=== PATIENT | female | born 1955 | race American Indian/Alaskan Native ===

== ENCOUNTER 2017-02-21 07:00 | Outpatient (CLI) | payer OTHER ==
[2017-02-21 10:01] LABS: BUN/Creatinine Ratio 14.61; Calcium 9.4 mg/dL (8.4-10.2); Magnesium 2.1 mg/dL (1.7-2.3); Phosphorous 2.8 mg/dL (2.5-4.5)
[2017-02-21 10:02] LABS: Chloride 102.2 mmol/L (98-107); Potassium 3.7 mmol/L (3.6-5.0)
[2017-02-21 10:15] LABS: Bacteria,Urine 2+ /HPF (Negative); Bilirubin,Urine NEG (Negative); Blood,Urine NEG (Negative); Ketones,Urine NEG (Negative); Leukocyte Esterase,Urine SM (Negative); Mucus,Urine FEW /HPF; Nitrite,Urine NEG (Negative); Protein,Urine >500 mg/dL (Negative)
[2017-02-25 09:41] LABS: Vitamin D, 25-OH, Total 28 ng/mL (30-100)
== END 2017-02-21 07:01 | disposition home or self-care (01) ==
LOC: LAB 07:00
PROVIDERS: ATTEND Internal Medicine Nephrology
DX: N18.3 Chronic kidney disease, stage 3 (moderate) (principal)
CPT/HCPCS: 36415; 80048; 81001; 82043; 82306; 83735; 84100

== ENCOUNTER 2017-04-09 11:46 | Outpatient (CLI) | payer OTHER ==
[2017-04-09 12:21] LABS: BUN/Creatinine Ratio 9.28; Calcium 9.5 mg/dL (8.4-10.2); Chloride 100.7 mmol/L (98-107); Potassium 3.7 mmol/L (3.6-5.0)
== END 2017-04-09 11:47 | disposition home or self-care (01) ==
LOC: LAB 11:46
PROVIDERS: ATTEND Internal Medicine Nephrology
DX: N18.3 Chronic kidney disease, stage 3 (moderate) (principal); I50.9 Heart failure, unspecified
CPT/HCPCS: 36415; 80048

== ENCOUNTER 2017-07-15 08:47 | Outpatient (CLI) | payer OTHER ==
[2017-07-15 09:44] LABS: Anion Gap 17 mmol/L; BUN/Creatinine Ratio 14.54; Blood Urea Nitrogen 16 mg/dL (7-17); Calcium 9.4 mg/dL (8.4-10.2); Carbon Dioxide 28 mmol/L (22-30); Chloride 103.3 mmol/L (98-107); Glucose 49 mg/dL (65-100); Potassium 3.3 mmol/L (3.6-5.0); Sodium 145 mmol/L (137-145)
== END 2017-07-15 08:48 | disposition home or self-care (01) ==
LOC: LAB 08:47
PROVIDERS: ATTEND Internal Medicine Nephrology
DX: I13.0 Hypertensive heart and chronic kidney disease with heart failure and stage 1 through stage 4 chronic kidney disease, or unspecified chronic kidney disease (principal); I50.9 Heart failure, unspecified; N18.3 Chronic kidney disease, stage 3 (moderate); E11.22 Type 2 diabetes mellitus with diabetic chronic kidney disease
CPT/HCPCS: 36415; 80048

== ENCOUNTER 2021-03-23 04:29 | Inpatient (IN) | payer BC, OTHER ==
[2021-03-23] MEDS ORDERED: LORazepam 2 MG/ML VIAL IV ONE (04:44)
--- NOTE | 2021-03-23 05:05 | Consultation ---
History of Present Illness History of present illness: [facility] Consult Note # Demographics Consult Type: Acute Stroke Level 1 (0-4.5 hrs) Patient Location: Emergency Room First Name: Ariella Last Name: Elinor Date of : 1955 Age: 65 Gender: Female Time of Initial Page (): 03/23/2021, 04:34 Time of Return Call ( Time): 03/23/2021, 04:35 # HPI Chief Complaint: altered mental state History: 65F with prior R MCA stroke, atiral fibrillation on coumadin, HTN, DM presents with left facial droop and slurred speech, AMS. Symptoms started at 0100 this AM. Initially hypotensive to 80/60. Saturating 90% on room air. Blood sugar 373. Complaining of significant pain in her back and saying she can't breathe. # Scores Time of exam and NIHSS (): 03/23/2021, 04:36 Level of Consciousness 1a: [0] = Alert; keenly responsive LOC Questions 1b: [0] = Answers both questions correctly LOC Commands 1c: [0] = Performs both tasks correctly Best Gaze 2: [0] = Normal Visual 3: [0] = No visual loss Facial Palsy 4: [1] = Minor paralysis Motor Arm Left 5a: [0] = No drift Motor Arm Right 5b: [0] = No drift Motor Leg Left 6a: [0] = No drift Motor Leg Right 6b: [0] = No drift Limb Ataxia 7: [0] = Absent Sensory 8: [0] = Normal Best Language 9: [0] = No aphasia Dysarthria 10: [1] = [id number] dysarthria Extinction and Inattention 11: [0] = No abnormality NIHSS Total: 2 # Data Time Head CT personally read by me ( Time): 03/23/2021, 05:[address]: no bleed, preliminarily reviewed by me, please refer to radiology read for official reading, chronic R MCA stroke # Assessment Impression: Recrudesence in setting of systemic illness vs acute ischemic stroke # Plan Thrombolytic/Intervention: NOT IV Thrombolytic or IA Intervention Thrombolytic Exclusion (< 3 hour window): non-disabling deficit Intraarterial Exclusion: clinically consistent with small vessel disease Target Blood Pressure: SBP < 220, DBP < 105 Labs: hemoglobin A1c, lipid panel Imaging: (urgency: routine admission): MR Angiogram Head without contrast, MR Angiogram Neck with contrast, MRI Brain without contrast Diagnostic Test: echo without bubble study Therapy/Evaluation: PT/OT evaluation Medication: start statin with goal of LDL < 70, ASA 325 and hold coumadin pending MRI; depending on size/presence of acute stroke will determine when to restart coumadin DVT Prophylaxis: SCD Other: LDL < 70, permissive hypertension, telemetry monitoring, I have discussed my recommendations with the referring provider Additional Recommendations: Target blood glucose 80-180 Disposition: admit # Logistics Telemedicine: Interactive 2 way audio and visual telecommunication technology was utilized during this visit Electronically signed at 03/23/2021 05:05 (Eastern Time) by Jonah Gonzales MD Medications and Allergies Allergies Allergy/AdvReac Type Severity Reaction Status Date / Time metformin Allergy Unknown Verified 03/04/17 16:42 Home Medications Medication Instructions Recorded Confirmed Last Taken Type Digoxin [Lanoxin] 0.125 mg PO DAILY 03/04/17 03/04/17 03/04/17 History Insulin Glargine [Lantus] 30 units SQ QHS 03/04/17 03/04/17 03/03/17 History Warfarin [Coumadin] 5 mg PO QDAY 03/04/17 03/04/17 03/04/17 History carvediloL [Coreg] 12.5 mg PO QDAY 03/04/17 03/04/17 03/04/17 History
--- NOTE | 2021-03-23 05:26 | Cat Scan Report ---
CT HEAD WITHOUT CONTRAST INDICATION: Code Stroke Protocol!!! Stroke-Like symptoms TECHNIQUE: All CT scans at this location are performed using CT dose reduction for ALARA by means of automated exposure control. COMPARISON: None currently available but reports have been reviewed FINDINGS: BRAIN: No hemorrhage or mass effect are seen. The previously reported large right MCA distribution in farction is again seen with areas of porencephaly noted. There is also an old appearing left frontal small focal cortical infarction. No definite new areas of infarction are seen. Mild atrophic changes are noted. White matter microvascular changes are seen. ORBITS: Normal as visualized. SOFT TISSUES OF HEAD: Normal. CALVARIUM: Normal. VISUALIZED PARANASAL SINUSES AND MASTOID AIR CELLS: Clear. ADDITIONAL FINDINGS: None. IMPRESSION: No no definite acute intracranial abnormality. I do not have comparison images available to fully evaluate for possibility of infarction extension but probably finding seen today are old. CODE STROKE: Time of Communication (ELECTRONIC INDUCTION HARDENER/CDT): 0295 Licensed Practitioner Receiving Report: Dr. Contreras Signer Name: Martell Last MD Signed: 03/23/2021 5:22 AM Workstation Name: [id number]
[2021-03-23 05:28] LABS: Basophils # (Auto) 0.1 K/mm3 (0.0-0.1); Basophils % (Auto) 1.7 % (0.0-1.8); Eosinophils # (Auto) 0.1 K/mm3 (0.0-0.4); Hematocrit 36.4 % (30.3-42.9); Hemoglobin 12.3 gm/dl (10.1-14.3); Lymphocytes # (Auto) 0.9 K/mm3 (1.2-5.4); Lymphocytes % (Auto) 18.4 % (13.4-35.0); Mean Corpuscular HGB Conc 34 % (30-34); Mean Corpuscular Volume 89 fl (79-97); Monocytes # (Auto) 0.3 K/mm3 (0.0-0.8); Monocytes % (Auto) 6.4 % (0.0-7.3); Platelet Count 132 K/mm3 (140-440); Red Blood Count 4.11 M/mm3 (3.65-5.03); Red Cell Distribution Width 16.4 % (13.2-15.2)
--- NOTE | 2021-03-23 05:29 | Emergency Department Report ---
ED General Adult HPI - General Chief complaint: Neuro Symptoms/Deficit Stated complaint: POSS STROKE Time Seen by Provider: 03/23/21 05:28 Source: EMS Mode of arrival: Stretcher Limitations: Altered Mental Status - History of Present Illness Initial comments: Patient is a 65-year-old female who presents with left-sided facial droop that is been going on for last few hours history is obtained by patient's . He states that he has had previous strokes in the past. Patient's states that patient has been feeling shaky and weak. She also has been acting more unusual such as yelling and acting in a manner that she usually does not act per the history is limited due to patient yelling saying that she is having back pain. - Related Data Home Medications Medication Instructions Recorded Confirmed Last Taken Digoxin [Lanoxin] 0.125 mg PO DAILY 03/04/17 03/04/17 03/04/17 Insulin Glargine [Lantus] 30 units SQ QHS 03/04/17 03/04/17 03/03/17 Warfarin [Coumadin] 5 mg PO QDAY 03/04/17 03/04/17 03/04/17 carvediloL [Coreg] 12.5 mg PO QDAY 03/04/17 03/04/17 03/04/17 Allergies Allergy/AdvReac Type Severity Reaction Status Date / Time metformin Allergy Swelling Verified 03/23/21 05:49 ED Review of Systems ROS: Stated complaint: POSS STROKE Other details as noted in HPI Constitutional: denies: chills, fever Eyes: denies: eye pain, eye discharge, vision change ENT: denies: ear pain, throat pain Respiratory: denies: cough, shortness of breath, wheezing Cardiovascular: denies: chest pain, palpitations Endocrine: no symptoms reported Gastrointestinal: denies: abdominal pain, nausea, diarrhea Genitourinary: denies: urgency, dysuria, discharge Musculoskeletal: denies: back pain, joint swelling, arthralgia Skin: denies: rash, lesions Neurological: as per HPI, numbness, paresthesias. denies: headache, weakness Psychiatric: denies: anxiety, depression Hematological/Lymphatic: denies: easy bleeding, easy bruising ED Past Medical Hx - Past Medical History Hx Hypertension: Yes Hx CVA: Yes (ischemic in 2003--no residual deficits) Hx Congestive Heart Failure: Yes Hx Diabetes: Yes Hx Asthma: No Hx COPD: No - Social History Smoking Status: Never Smoker - Medications Home Medications: Home Medications Medication Instructions Recorded Confirmed Last Taken Type Digoxin [Lanoxin] 0.125 mg PO DAILY 03/04/17 03/04/17 03/04/17 History Insulin Glargine [Lantus] 30 units SQ QHS 03/04/17 03/04/17 03/03/17 History Warfarin [Coumadin] 5 mg PO QDAY 03/04/17 03/04/17 03/04/17 History carvediloL [Coreg] 12.5 mg PO QDAY 03/04/17 03/04/17 03/04/17 History ED Physical Exam - General Limitations: Altered Mental Status General appearance: alert, in no apparent distress - Head Head exam: Present: atraumatic, normocephalic - Eye Eye exam: Present: normal appearance - ENT ENT exam: Present: mucous membranes moist - Neck Neck exam: Present: normal inspection - Respiratory Respiratory exam: Present: normal lung sounds bilaterally. Absent: respiratory distress - Cardiovascular Cardiovascular Exam: Present: regular rate, normal rhythm. Absent: systolic murmur, diastolic murmur, rubs, gallop - GI/Abdominal GI/Abdominal exam: Present: soft, normal bowel sounds - Extremities Exam Extremities exam: Present: normal inspection - Back Exam Back exam: Present: normal inspection - Neurological Exam Neurological exam: Present: alert, oriented X3 - Psychiatric Psychiatric exam: Present: normal affect, normal mood - Skin Skin exam: Present: warm, dry, intact, normal color. Absent: rash ED Course Vital Signs 03/23/21 03/23/21 03/23/21 05:30 05:31 05:45 Temperature 92.6 F L Pulse Rate 80 80 Respiratory 27 H 20 Rate Blood Pressure 73/47 59/23 O2 Sat by Pulse 99 Oximetry ED Medical Decision Making - Lab Data Result diagrams: 03/23/21 05:06 Lab Results 03/23/21 03/23/21 03/23/21 Range/Units 05:06 05:06 05:06 WBC 4.7 (4.5-11.0) K/mm3 RBC 4.11 (3.65-5.03) M/mm3 Hgb 12.3 (10.1-14.3) gm/dl Hct 36.4 (30.3-42.9) % MCV 89 (79-97) fl MCH 30 (28-32) pg MCHC 34 (30-34) % RDW 16.4 H (13.2-15.2) % Plt Count 132 L (140-440) K/mm3 Lymph % (Auto) 18.4 (13.4-35.0) % Nuckolls % (Auto) 6.4 (0.0-7.3) % Eos % (Auto) 1.1 (0.0-4.3) % Baso % (Auto) 1.7 (0.0-1.8) % Lymph # (Auto) 0.9 L (1.2-5.4) K/mm3 Nuckolls # (Auto) 0.3 (0.0-0.8) K/mm3 Eos # (Auto) 0.1 (0.0-0.4) K/mm3 Baso # (Auto) 0.1 (0.0-0.1) K/mm3 Seg Neutrophils % 72.4 H (40.0-70.0) % Seg Neutrophils # 3.4 (1.8-7.7) K/mm3 PT 38.3 H (12.2-14.9) Sec. INR 3.86 H (0.87-1.13) APTT 40.0 H (24.2-36.6) Sec. Thrombin Time 18.0 (15.1-19.6) Sec. Total Creatine Kinase 105 (30-135) units/L CK-MB (CK-2) 1.7 (0.0-4.0) ng/mL CK-MB (CK-2) Rel Index 1.6 (0-4) Troponin T < 0.010 (0.00-0.029) ng/mL - EKG Data 03/23/21 05:51 EKG shows ventricularly paced rhythm time 5: [address] segment elevation no T wave inversion. - Radiology Data Radiology results: report reviewed, image reviewed CT head: Shows old right MCA infarct no acute hemorrhage - Medical Decision Making Chief medical diagnosis: Ischemic stroke Differential medical diagnosis: Hemorrhagic stroke, TIA I will get neurology consult we will get CT scan of head I will get CBC BMP IV fluids IV Ativan for sedation and I will admit the patient to the hospitalist service Critical Care Time: Yes (60) Critical care attestation.: If time is entered above; I have spent that time in minutes in the direct care of this critically ill patient, excluding procedure time. ED Disposition Clinical Impression: CVA (cerebral vascular accident) Qualifiers: CVA mechanism: unspecified Qualified Code(s): I63.9 - Cerebral infarction, unspecified Disposition: DC09 OP ADMIT IP TO THIS HOSP Is pt being admited?: Yes Does the pt Need Aspirin: No Condition: Stable
[2021-03-23] MEDS ORDERED: SODIUM CHLORIDE 0.9% 1000 ML 1,000 ML IV ONE ×3 (05:30→06:04)
[2021-03-23] MEDS ORDERED: SODIUM CHLORIDE 0.9% 1000 ML 2,000 ML ONE (05:30)
[2021-03-23 05:31] LABS: Eosinophils % (Auto) 1.1 % (0.0-4.3); INR 3.86 (0.87-1.13)
[2021-03-23 05:37] LABS: Creatine Kinase MB 1.7 ng/mL (0.0-4.0)
[2021-03-23] MEDS ORDERED: ACETAMINOPHEN 325 MG TAB PO PRN (05:47)
[2021-03-23] MEDS ORDERED: ONDANSETRON 4 MG/2 ML INJ IV PRN (05:47)
[2021-03-23] MEDS ORDERED: SENNOSIDES 8.6 MG TAB PO PRN (05:47)
[2021-03-23] MEDS ORDERED: ALUM-MAG HYDROXIDE-SIMETHICONE 200-200-20MG/5ML ORAL LIQD 30 ML PO PRN (05:47)
[2021-03-23] MEDS ORDERED: MAGNESIUM HYDROXIDE (MOM) ORAL LIQD UDC PO PRN (05:47)
[2021-03-23] MEDS ORDERED: SODIUM CHLORIDE 0.9% 1000 ML 1,000 ML IV SCH (06:00)
--- NOTE | 2021-03-23 06:04 | History and Physical Report ---
History of Present Illness Date of examination: 03/23/21 Date of admission: 03/23/21 Chief complaint: Alktered mental Status History of present illness: History: 65F with prior R MCA stroke, atiral fibrillation on coumadin, HTN, DM presents with left facial droop and slurred speech, AMS. Symptoms started at 0100 this AM. Initially hypotensive to 80/60. Saturating 90% on room air. Blood sugar 373. Complaining of significant pain in her back and saying she can't br eathe. ED Work Up-WBC 4.7, hemoglobin 12.3, PLT 132, Troponin 0.010, CT of the head-No acute finding process Patient seen at bedside, patients at bedside. patient with left facial droop and slurred speech. patient has hx of CVA, HTN, DM and atiral fibrillation on coumadin. Reviewed lab, mar, and v/s. Past History Past Medical History: atrial fib, heart failure, hypertension, hyperlipidemia, stroke Past Surgical History: No surgical history Social history: lives with family Family history: no significant family history Medications and Allergies Allergies Allergy/AdvReac Type Severity Reaction Status Date / Time metformin Allergy Swelling Verified 03/23/21 05:49 Home Medications Medication Instructions Recorded Confirmed Last Taken Type Digoxin [Lanoxin] 0.125 mg PO DAILY 03/04/17 03/04/17 03/04/17 History Insulin Glargine [Lantus] 30 units SQ QHS 03/04/17 03/04/17 03/03/17 History Warfarin [Coumadin] 5 mg PO QDAY 03/04/17 03/04/17 03/04/17 History carvediloL [Coreg] 12.5 mg PO QDAY 03/04/17 03/04/17 03/04/17 History Active Meds: Active Medications Acetaminophen (Acetaminophen 325 Mg Tab) 650 mg PO Q4H PRN PRN Reason: Pain MILD(1-3)/Fever >100.5/CASTANO Al Hydrox/Mg Hydrox/Simethicone (Alum-Mag Hydroxide-Simethicone [phone]/5ml Oral Liqd 30 Ml) 30 ml PO Q4H PRN PRN Reason: Indigestion Atorvastatin Calcium (Atorvastatin 40 Mg Tab) 80 mg PO QHS [facility]OL[facility] Carvedilol (Carvedilol 12.5 Mg Tab) 12.5 mg PO QDAY [facility]OL[facility] Digoxin (Digoxin 0.125 Mg Tab) 0.125 mg PO DAILY@1700 MANOLO Sodium Chloride (Nacl 0.9% 1000 Ml) 1,000 mls @ 999 mls/hr IV BOLUS ONE Stop: 03/23/21 06:30 Last Admin: 03/23/21 05:30 Dose: 999 mls/hr Documented by: Sodium Chloride (Nacl 0.9% 1000 Ml) 1,000 mls @ 999 mls/hr IV BOLUS ONE Stop: 03/23/21 06:30 Last Admin: 03/23/21 05:30 Dose: 999 mls/hr Documented by: Sodium Chloride (Nacl 0.9% 1000 Ml) 1,000 mls @ 42 mls/hr IV DIRECT MANOLO Insulin Glargine (Insulin Glargine 100 Units/Ml) 30 units SUB-Q QHS [facility] Magnesium Hydroxide (Magnesium Hydroxide (Mom) Oral Liqd Udc) 30 ml PO Q4H PRN PRN Reason: Constipation Ondansetron HCl (Ondansetron 4 Mg/2 Ml Inj) 4 mg IV Q8H PRN PRN Reason: Nausea And Vomiting Senna (Sennosides 8.6 Mg Tab) 8.6 mg PO Q12HR PRN PRN Reason: Constipation Sodium Chloride (Sodium Chloride 0.9% 10 Ml Flush Syringe) 10 ml IV BID MANOLO Sodium Chloride (Sodium Chloride 0.9% 10 Ml Flush Syringe) 10 ml IV PRN PRN PRN Reason: LINE FLUSH Warfarin Sodium (Warfarin 5 Mg Tab) 5 mg PO QDAY [facility]; Protocol Review of Systems Constitutional: fatigue, weakness Ears, nose, mouth and throat: no epistaxis, no bleeding gums Cardiovascular: no chest pain Respiratory: no congestion, no wheezing Gastrointestinal: no melena, no hematochezia Rectal: no itching, no hemorrhoids Musculoskeletal: muscle weakness Integumentary: no rash, no pruritis, no lesions Psychiatric: no disorientation, no hallucinations Hematologic/Lymphatic: no easy bruising, no easy bleeding Allergic/Immunologic: no urticaria Exam - Constitutional Vitals: Temp Pulse Resp BP Pulse Ox 92.6 F L 80 20 59/23 99 03/23/21 05:30 03/23/21 05:45 03/23/21 05:45 03/23/21 05:45 03/23/21 05:31 General appearance: Present: mild distress, well-nourished - EENT Eyes: Present: PERRL ENT: hearing intact, clear oral mucosa - Neck Neck: Present: supple, normal ROM - Respiratory Respiratory effort: normal Respiratory: bilateral: CTA - Cardiovascular Heart rate: 80 Heart Sounds: Present: S1 & S2. Absent: rub, click - Extremities Extremities: pulses symmetrical, No edema Peripheral Pulses: within normal limits - Abdominal General gastrointestinal: Present: soft, non-tender, non-distended, normal bowel sounds Female genitourinary: Present: normal - Integumentary Integumentary: Present: clear, warm, dry - Musculoskeletal Musculoskeletal: strength equal bilaterally, generalized weakness - Psychiatric Psychiatric: appropriate mood/affect, intact judgment & insight, cooperative - Neurologic Neurologic: CNII-XII intact, moves all extremities - Allied Health Allied health notes reviewed: nursing, PT HEART Score - HEART Score Troponin: Troponin T < 0.010 ng/mL (0.00-0.029) 03/23/21 05:06 Results - Labs CBC & Chem 7: 03/23/21 05:06 Labs: Abnormal lab results 03/23/21 03/23/21 Range/Units 05:06 05:06 RDW 16.4 H (13.2-15.2) % Plt Count 132 L (140-440) K/mm3 Lymph # (Auto) 0.9 L (1.2-5.4) K/mm3 Seg Neutrophils % 72.4 H (40.0-70.0) % PT 38.3 H (12.2-14.9) Sec. INR 3.86 H (0.87-1.13) APTT 40.0 H (24.2-36.6) Sec. Assessment and Plan - Patient Problems (1) CVA (cerebral vascular accident) Current Visit: Yes Status: Acute Qualifiers: CVA mechanism: unspecified Qualified Code(s): I63.9 - Cerebral infarction, unspecified Plan to address problem: Head CT: no bleed, preliminarily reviewed by me, chronic R MCA stroke Tele health consult-f/u with recommendation ASA and lipitor PT/OT and speech pathologist (2) Hypertension Current Visit: No Status: Acute Qualifiers: Hypertension type: essential hypertension Qualified Code(s): I10 - Essential (primary) hypertension Plan to address problem: Monitor blood pressure Resume home antihypertensive PRN hydralazine (3) CHF (congestive heart failure) Current Visit: No Status: Acute Plan to address problem: Continue BB, statin and diuretic ECHO-f/u with result (4) Diabetes Current Visit: No Status: Acute Plan to address problem: Monitor blood sugar with SSI Continue antihyperglycemia (5) Full code status Current Visit: Yes Status: Acute Plan to address problem: Patient is full code (6) DVT prophylaxis Current Visit: No Status: Acute Plan to address problem: Heparin subcutaneous
[2021-03-23] MEDS ORDERED: traMADol 50 MG TAB PO PRN (06:31)
[2021-03-23] MEDS: NORepinephrine/NS 4 MG-250 ML 4 MG/250 ML BAG IV SCH ×5 (08:20→20:14)
--- NOTE | 2021-03-23 08:21 | Event Note ---
Date: 03/23/21 Significant event 65 year old F admitted with strokelike symptoms. Hypotensive, hypothermic on presentation. Received 3L bolus with no improvement in BP - MAP still~55. Patient is now hypoxic with sats ~mid 80s Exam - patient is altered, on restraints. Plan Levophed order placed. Will use peripheral line for now. Discussed with Dr Álvarez, he will place central line Transfer to Medical ICU Critical care consult STAT cmp, ddimer, BNP, lactic acid, troponin blood culture, urinalysis ABG stat. chest xray. May need intubation EKG stat Empirical antibiotics Hold BP medications
--- NOTE | 2021-03-23 08:37 | Event Note ---
Date: 03/23/21 [facility] central line note Requested by hospitalist Dr. Rodney to place CVL for pressors Consent unobtainable due to patient's condition/emergent situation Location: Right femoral The skin was prepped and draped in a sterile fashion. The skin and subcutaneous tissue was anesthetized with 1% lidocaine The needle was inserted blood was aspirated after first attempt Using the Seldinger technique a guidewire was inserted. A small incision was made and a dilator was placed. Blood return was good from all 3 ports. All ports were flushed with saline. The central venous line was secured in place with adhesive Sterile OpSite dressing was applied The patient tolerated the procedure well There were no complications
[2021-03-23] MEDS ORDERED: FAMOTIDINE 20 MG/2 ML INJ IV ONE (08:54)
[2021-03-23] MEDS ORDERED: VANCOMYCIN PHARMACY TO DOSE IV SCH (09:00)
[2021-03-23] MEDS ORDERED: VANCOMYCIN/NS 1 GM/250 ML 1 GM/250 ML BAG IV ONE (09:00)
[2021-03-23] MEDS ORDERED: CEFEPIME/NS 2 GM/100 ML 2 GM/100 ML BAG IV SCH (09:00)
--- NOTE | 2021-03-23 09:07 | Event Note ---
Date: 03/23/21 MD intubation note Requested by hospitalist to intubate patient secondary to hypoxia not responding to nonrebreather Intubation note Consent was unobtainable due to patient condition Preoxygenation with 100% oxygen Patient was sedated with etomidate 20 mg IV Patient was paralyzed with succinylcholine 100 mg IV A size 7.0 mm ET tube was inserted orally on first attempt There was symmetric chest rise and bilateral breath sounds post intubation A CO2 indicator was used for confirmation and resulted in positive CO2 return Pulse oximetry post intubation was 89% ET tube was taped at 21 cm at the lips Post intubation chest x-ray confirmed good tube location The patient tolerated the procedure well There were no complications
--- NOTE | 2021-03-23 09:33 | XRay Report ---
XR abdomen 1V ap INDICATION: OG TUBE PLACEMENT. COMPARISON: None available. FINDINGS: The tip of the NG tube projects over the body of the stomach in good position. Signer Name: Saman Roblero MD Signed: 03/23/2021 9:29 AM Workstation Name: [id number]
--- NOTE | 2021-03-23 09:35 | XRay Report ---
CHEST 1 VIEW 03/23/2021 8:28 AM INDICATION / CLINICAL INFORMATION: POST INTUBATION. COMPARISON: None available. FINDINGS: SUPPORT DEVICES: The tip of the ET tube is about 5 cm above the bill. Single lead cardiac pacemaker appears in good position. Prosthetic aortic valve appears in good position. HEART / MEDIASTINUM: There is mild cardiomegaly. LUNGS / PLEURA: There is an apparent left perihilar nodular opacity. No pneumothorax. ADDITIONAL FINDINGS: No significant additional findings. IMPRESSION: 1. Left perihilar nodular parenchymal opacity. This could represent focal pneumonia versus a pulmonar y mass. Further characterization with CT of the chest recommended. Signer Name: Saman Roblero MD Signed: 03/23/2021 9:31 AM Workstation Name: [id number]
[2021-03-23] MEDS: CEFEPIME/NS 2 GM/100 ML 2 GM/100 ML BAG IV SCH ×2 (09:45→21:33)
[2021-03-23] MEDS ORDERED: WARFARIN 5 MG TAB PO SCH (10:00)
[2021-03-23] MEDS ORDERED: carvediloL 12.5 MG TAB PO SCH (10:00)
[2021-03-23] MEDS ORDERED: VASOPRESSIN 20 UNIT in SODIUM CHLORIDE 0.9% 100 ML IV SCH (10:00)
--- NOTE | 2021-03-23 10:08 | Electrocardiograph Report ---
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
[2021-03-23 10:11] LABS: Bacteria,Urine 1+ /HPF (Negative); Bilirubin,Urine NEG (Negative); Blood,Urine NEG (Negative); Color,Urine Amber (Yellow); Hyaline Casts,Urine 8 /LPF; Mucus,Urine FEW /HPF
[2021-03-23 10:13] LABS: Protein,Urine >500 mg/dL (Negative)
[2021-03-23] MEDS ORDERED: LIP THERAPY VASELINE TP PRN (11:46)
[2021-03-23] MEDS ORDERED: MINERAL OIL/PETROLATUM, WHITE OPHTH OINT 3.5 GM OU PRN (11:46)
[2021-03-23] MEDS: fentaNYL DRIP Premix 2,000 MCG/100 ML BAG IV SCH ×2 (12:05→21:42)
--- NOTE | 2021-03-23 12:31 | Consultation ---
History of Present Illness Consult date: 03/23/21 Requesting physician: MIKA ROGERS Reason for consult: other (Acute Hypoxemic Respiratory Failure on MVS) History of present illness: PULMONARY/CCM CONSULT NOTE (Full dictation # [id number]) Please see dictated notes for full details Past History Past Medical History: atrial fib, heart failure, hypertension, hyperlipidemia, stroke Past Surgical History: No surgical history Social history: lives with family Family history: no significant family history Medications and Allergies Allergies Allergy/AdvReac Type Severity Reaction Status Date / Time metformin Allergy Swelling Verified 03/23/21 05:49 Home Medications Medication Instructions Recorded Confirmed Last Taken Type AtorvaSTATin [Lipitor] 40 mg PO QHS 03/23/21 03/23/21 Unknown History Digoxin [Lanoxin] 0.125 mg PO DAILY 03/23/21 03/23/21 Unknown History Doxazosin [Cardura] 2 mg PO QDAY 03/23/21 03/23/21 Unknown History Furosemide [Lasix] 20 mg PO QDAY 03/23/21 03/23/21 Unknown History NIFEdipine [Nifedipine ER] 60 mg PO QDAY 03/23/21 03/23/21 Unknown History RX: Insulin Detemir (Nf) [Levemir 45 units SQ QHS 03/23/21 03/23/21 Unknown History Flextouch (Nf)] RX: Insulin Lispro 15 unit SQ TID 03/23/21 03/23/21 Unknown History RX: Losartan Potassium 50 mg PO QDAY 03/23/21 03/23/21 Unknown History carvediloL [Coreg] 6.25 mg PO BID 03/23/21 03/23/21 Unknown History hydrALAZINE [Apresoline TAB] 100 mg PO TID 03/23/21 03/23/21 Unknown History Active Meds: Active Medications Acetaminophen (Acetaminophen 325 Mg Tab) 650 mg PO Q4H PRN PRN Reason: Pain MILD(1-3)/Fever >100.5/CASTANO Al Hydrox/Mg Hydrox/Simethicone (Alum-Mag Hydroxide-Simethicone 252-627-77qt/5ml Oral Liqd 30 Ml) 30 ml PO Q4H PRN PRN Reason: Indigestion Atorvastatin Calcium (Atorvastatin 40 Mg Tab) 80 mg PO QHS [facility] Digoxin (Digoxin 0.125 Mg Tab) 0.125 mg PO DAILY@1700 [facility] Hydrophilic Ointment (Lip Therapy Vaseline) 1 applic TP Q2HR PRN PRN Reason: Dry Lips Sodium Chloride (Nacl 0.9% 1000 Ml) 1,000 mls @ 42 mls/hr IV DIRECT MANOLO Norepinephrine (Levophed Drip 4 Mg/Ns 250 Ml) 4 mg in 250 mls @ 7.5 mls/hr IV TITR MAN[facility]O; Protocol Last Admin: 03/23/21 10:48 Dose: 30 mcg/min, 112.5 mls/hr Documented by: Cefepime HCl (Cefepime/Ns 2 Gm/100 Ml) 2 gm in 100 mls @ 200 mls/hr IV Q12H [facility] Last Admin: 03/23/21 09:45 Dose: 200 mls/hr Documented by: Vasopressin 20 unit/ Sodium (Chloride) 101 mls @ 9.09 mls/hr IV TITR MAN[facility]O; Protocol Fentanyl Citrate (Fentanyl Drip Premix) 2,000 mcg in 100 mls @ 2.699 mls/hr IV TITR [facility]; Protocol Last Admin: 03/23/21 12:05 Dose: 1 mcg/kg/hr, 2.699 mls/hr Documented by: Insulin Glargine (Insulin Glargine 100 Units/Ml) 30 units SUB-Q QHS [facility] Magnesium Hydroxide (Magnesium Hydroxide (Mom) Oral Liqd Udc) 30 ml PO Q4H PRN PRN Reason: Constipation Multi-Ingred Cream/Lotion/Oil/Oint (Mineral Oil/Petrolatum, White Ophth Oint 3.5 Gm) 1 applic OU Q4HR PRN PRN Reason: Dry Eye(s) Ondansetron HCl (Ondansetron 4 Mg/2 Ml Inj) 4 mg IV Q8H PRN PRN Reason: Nausea And Vomiting Senna (Sennosides 8.6 Mg Tab) 8.6 mg PO Q12HR PRN PRN Reason: Constipation Sodium Chloride (Sodium Chloride 0.9% 10 Ml Flush Syringe) 10 ml IV BID [facility] Last Admin: 03/23/21 10:48 Dose: Not Given Documented by: Sodium Chloride (Sodium Chloride 0.9% 10 Ml Flush Syringe) 10 ml IV PRN PRN PRN Reason: LINE FLUSH Tramadol HCl (Tramadol 50 Mg Tab) 50 mg PO Q4H PRN PRN Reason: Pain, Moderate (4-6) Physical Examination Vital signs: Vital Signs Temp 92.6 F L 03/23/21 05:30 Results - Laboratory Findings CBC and BMP: 03/23/21 05:06 ABG ABG pH 7.220 (7.320-7.450) L 03/23/21 10:07 POC ABG pCO2 33.3 mmHg (32.0-48.0) 03/23/21 10:07 POC ABG pO2 59.3 mmHg (83-108) L 03/23/21 10:07 POC ABG HCO3 13.3 03/23/21 10:07 PT/INR, D-dimer PT 38.3 Sec. (12.2-14.9) H 03/23/21 05:06 INR 3.86 (0.87-1.13) H 03/23/21 05:06 Abnormal lab findings: Abnormal Labs 03/23/21 03/23/21 03/23/21 05:06 05:06 10:07 RDW 16.4 H Plt Count 132 L Lymph # (Auto) 0.9 L Seg Neutrophils % 72.4 H PT 38.3 H INR 3.86 H APTT 40.0 H ABG pH 7.220 L POC ABG pO2 59.3 L ABG Potassium 5.0 H ABG Chloride 108.0 H ABG Glucose 364 H Arterial Blood Glucose 364 H Arterial Blood Ionized Calcium 4.4 L
[2021-03-23] MEDS ORDERED: PANTOPRAZOLE 40 MG INJ IV STA (13:12)
[2021-03-23] MEDS: PANTOPRAZOLE 80 MG in SODIUM CHLORIDE 0.9% 100 ML IV SCH (14:48)
[2021-03-23 15:20] LABS: INR 6.71 (0.87-1.13)
[2021-03-23 15:53] LABS: Albumin 3.4 g/dL (3.9-5); Calcium 8.4 mg/dL (8.4-10.2)
[2021-03-23] MEDS ORDERED: DIGOXIN 0.125 MG TAB PO SCH (17:00)
[2021-03-23] MEDS: INSULIN LISPRO 100 UNIT/ML SUB-Q SCH (18:01)
--- NOTE | 2021-03-23 19:04 | Vascular Lab Report ---
DUPLEX DOPPLER LOWER EXTREMITY VEINS, BILATERAL INDICATION / CLINICAL INFORMATION: DVT. TECHNIQUE: Duplex doppler imaging was performed through the veins of both lower extremities using venous alan sophie and other maneuvers. COMPARISON: None available. FINDINGS: RIGHT COMMON FEMORAL VEIN: Negative. RIGHT FEMORAL VEIN: Negative. RIGHT POPLITEAL VEIN: Negative. RIGHT CALF VEINS: Negative. LEFT COMMON FEMORAL VEIN: Negative. LEFT FEMORAL VEIN: Negative. LEFT POPLITEAL VEIN: Negative. LEFT CALF VEINS: Negative. ADDITIONAL FINDINGS: Subcutaneous edema in both calves IMPRESSION: 1. No sonographic evidence for DVT in either lower extremity. Subcutaneous edema is present in both c singh Signer Name: James Coburn MD FACR Signed: 03/23/2021 7:00 PM Workstation Name: [id number]
[2021-03-23 20:20] LABS: Basophils # (Auto) 0.2 K/mm3 (0.0-0.1); Basophils % (Auto) 1.3 % (0.0-1.8); Eosinophils # (Auto) 0.1 K/mm3 (0.0-0.4); Eosinophils % (Auto) 0.5 % (0.0-4.3); Hematocrit 36.5 % (30.3-42.9); Hemoglobin 12.3 gm/dl (10.1-14.3); Lymphocytes # (Auto) 0.8 K/mm3 (1.2-5.4); Lymphocytes % (Auto) 6.6 % (13.4-35.0); Mean Corpuscular HGB Conc 34 % (30-34); Mean Corpuscular Volume 87 fl (79-97); Monocytes # (Auto) 0.4 K/mm3 (0.0-0.8); Monocytes % (Auto) 3.5 % (0.0-7.3); Platelet Count 136 K/mm3 (140-440); Red Blood Count 4.19 M/mm3 (3.65-5.03); Red Cell Distribution Width 16.1 % (13.2-15.2)
[2021-03-23 20:33] LABS: Albumin 3.1 g/dL (3.9-5)
[2021-03-23] MEDS: INSULIN GLARGINE 100 UNITS/ML SUB-Q SCH (21:36)
--- NOTE | 2021-03-23 23:58 | Consultation ---
DATE OF CONSULTATION: 03/23/2021 PULMONARY CRITICAL CARE CONSULT NOTE CONSULTING PHYSICIAN: Dr. Aram Rodney REASON FOR CONSULTATION: Acute hypoxemic respiratory failure, on mechanical ventilatory support and now acute GI bleed. CHIEF COMPLAINT AND HISTORY OF PRESENT ILLNESS: As follows: The patient is a now 65-year-old female who presented to the hospital yesterday, I believe as a stroke alert with left-sided facial droop, it had just been going on for a few hours according to the history given by the patient's . He also stated that she has had previous strokes in the past. She had been feeling shaky and weak. She had been acting unusually such as yelling and acting in an unusual manner. She was evaluated in the emergency room. I believe a code stroke was called. A CT scan of the brain was negative, showed no acute process. While in the emergency room, she decompensated. She became hypotensive and a central venous line was placed. Then, she became hypoxemic and secondary to the patient not responding to a nonrebreather mask, she was intubated and transferred to the intensive care unit where I stopped by to see her. When I stopped by to see her, she was on the mechanical ventilator. She had been started on a fentanyl drip at about 1 mcg/kg per hour at that time. Once I started my examination, she woke up and proceeded to cough up what looked like fresh coffee-ground hematemesis. I do not have any history of any trauma prior to this presentation. I do not have any history of vomiting or overt aspiration. The above is as much of the history of presentation as I have. PAST MEDICAL HISTORY: Again, significant for a prior right MCA stroke, history of atrial fibrillation, history of hypertension, history of diabetes, and reportedly she was on Coumadin at home, history of hyperlipidemia. PAST SURGICAL HISTORY: Unknown. MEDICATIONS: She was on at the time I stopped by to see her were reviewed. Pertinent medications include the following: Tylenol 650 mg p.o. q.4 hours p.r.n. mild pain or fevers. All p.o. meds via the feeding tube. Lipitor 80 mg p.o. at bedtime, cefepime 2 grams IV q. 12 hours, digoxin 0.125 mg p.o. daily, fentanyl was going at 1 mcg/kg per hour, Lantus insulin 30 units subQ at bedtime, Levophed drip was going at 30 mcg per minute, Zofran 4 mg IV q. 8 hours p.r.n. nausea and vomiting, senna 8.6 mg p.o. q.12h., tramadol 50 mg p.o. q. 4 hours p.r.n. moderate pain, vasopressin 0.03 units per minute. ALLERGIES: METFORMIN. Nature of this allergy is unknown. DIET: Well built lady, acute weight loss, again history is unknown. FAMILY AND SOCIAL HISTORY: Lives in the community. She is ; however, alcohol, tobacco or illicit drug use or abuse history are unknown. The records mentioned that there is no significant family history. She is a never smoker. REVIEW OF SYSTEMS: Unobtainable secondary to patient's medical and mental condition. Since she has been here, no gross hematochezia or melena, no gross hematuria. She had the episode of hematemesis. No hemoptysis or bloody tracheal secretions. REVIEW OF SYSTEMS: Otherwise unobtainable or as in the body of history above. PHYSICAL EXAMINATION: VITAL SIGNS: At presentation, she was hypothermic, temperature 92.6 degrees Fahrenheit, pulse of 80, respiratory rate of 27, blood pressure of 73/47, O2 sats were 99%, inspired oxygen concentration at that time was not recorded. When I stopped by to see her, her O2 sats were 99 that was on the assist control mode of ventilation, AC PRVC, tidal volume I believe was 450, rate had been increased to 30 earlier at my direction and PEEP was 6 initially at 100% FIO2. GENERAL: She is well-built elderly female. Normocephalic, atraumatic on the mechanical ventilator with mildly increased respiratory effort at rest. HEENT: Anicteric, no conjunctival erythema. Oropharynx was moist. She had an endotracheal tube taped at the lips around 24 cm. Grossly, there were no palpable lymph nodes in the supraclavicular or submandibular lymph node chains. LUNGS: Auscultation of both lung hines really clear bilaterally, faint left lower lobe rhonchi, no wheezing. HEART: Sounds 1 and 2 are heard, regular rate and rhythm. It was a paced rhythm on the monitor. Of note, she had an implanted cardiac device in the left upper anterior chest wall. ABDOMEN: Soft, flat, bowel sounds are positive, nontender, no palpable hepatosplenomegaly. EXTREMITIES: Without overt digital clubbing or cyanosis, no pedal edema. Pedal pulses were 2+ bilaterally. I believe she did have right femoral central line in place. NEUROLOGIC: Pupils were equal, round, about 4 mm, reactive to light. Extraocular muscle movements appeared intact. She did have spontaneous movements, it seems to all extremities while I was in the room and appeared to be attempting to follow some commands, but mostly just looked really anxious. SKIN: Normal turgor in the areas examined without overt cellulitis or rash. Please see the wound care nurses' notes for full description of her skin. PSYCHIATRIC: Mood was normal. Affect was anxious. Judgment and insight could not be evaluated. LABORATORY DATA: From my review are as follows: Admission white cell count 4700, hemoglobin 12.3, hematocrit 36.4, platelet count 132. No manual differential. INR was 3.86. Arterial blood gases earlier showed a pH of 7.22, pCO2 of 33, pO2 of 59 that was on assist control 450 tidal volume, rate of 20 and PEEP of 6 and FiO2 was 100%. Urinalysis was unremarkable. Coronavirus PCR is negative. Chest x-ray shows endotracheal tube with the tip in good position, left perihilar infiltrate. The film is rotated to the right and implanted left upper anterior chest wall cardiac device. No gross pneumothorax, no gross bony fracture. Abdominal x-ray shows an NG tube in good position. As mentioned, the CT of the head was negative. ASSESSMENT: 1. Acute hypoxemic respiratory failure, on mechanical ventilatory support. 2. Acute encephalopathy, possibly toxic metabolic. 3. History of a right MCA cerebrovascular accident. 4. Atrial fibrillation. 5. History of hypertension. 6. Diabetes. 7. Oropharyngeal dysphagia. 8. Supratherapeutic INR/coagulopathy. 9. Metabolic acidosis. PLAN: We will leave her on full mechanical ventilatory support. I have started her on a Protonix drip after 80 mg IV bolus. I will repeat the CBC as well as a PT/INR just to see which direction the INR is going in. Consideration will be given for reversal agents, if she does continue to bleed and GI consult has been placed. Oxygen will be weaned to keep sats greater than or equal to 92%. I have dropped the FiO2 to 80 percent and increased the PEEP to 8. She is hypotensive, so we will try and reduce increasing the PEEP much more. She remains on a Levophed drip. We will wean that down for a target mean arterial pressure above 65 mmHg. Cardiology evaluation will be sought for history of significant cardiomyopathy plus or minus a 2D echocardiogram. Enteral nutrition will be the feeding modality of choice for now. An NG tube has been placed and will be connected to low intermittent suction, pending GI evaluation and clearance for feeding. We will continue empiric antibiotic therapy while following cultures to aid de-escalation. Sedation will be targeted for RASS of about -1 to -2. Glycemic control will be targeted for blood glucose 140-180 mg/dL while critically ill. Flu and pneumonia vaccination will be addressed per protocol. A stat comprehensive metabolic panel has been sent and will be addressed. Thank you very much for the consult. We will follow along and make further recommendations as picture progresses/becomes clearer. She is critically ill on life-sustaining interventions including mechanical ventilatory support and vasopressors at very high risk of from cardiopulmonary and now gastrointestinal system decompensation. At this time, I spent about 35-40 minutes of critical care time without overlap and excluding any procedural time that may be necessary. TID: [id number] RECEIPT: [id number] NERI/MYKE
[2021-03-24] MEDS ORDERED: ETOMIDATE 20 MG/10 ML INJ IV ONE (00:24)
[2021-03-24] MEDS ORDERED: SUCCINYLCHOLINE CHLORIDE 200 MG/10 ML INJ MDV ONE (00:24)
[2021-03-24] MEDS: INSULIN LISPRO 100 UNIT/ML SUB-Q SCH ×4 (00:49→23:10)
[2021-03-24] MEDS: DEXTROSE 50% IN WATER (25GM) 50 ML SYRINGE IV PRN ×3 (01:51→23:14)
[2021-03-24] MEDS: NORepinephrine/NS 4 MG-250 ML 4 MG/250 ML BAG IV SCH (01:53)
[2021-03-24] MEDS: PANTOPRAZOLE 80 MG in SODIUM CHLORIDE 0.9% 100 ML IV SCH (01:54)
--- NOTE | 2021-03-24 03:52 | XRay Report ---
CHEST 1 VIEW 0310 INDICATION / CLINICAL INFORMATION: follow up respiratory failure COMPARISON: 03/23/2021 FINDINGS: SUPPORT DEVICES: Endotracheal tube has been removed. Pacer is again seen. HEART / MEDIASTINUM: Prominent cardiomegaly LUNGS / PLEURA: Diffuse congestion and diffuse interstitial edema have increased mildly. The focal in filtrate in the left perihilar area continues but may be slightly improved. No pneumothorax. Small ri ght pleural effusion is noted. ADDITIONAL FINDINGS: No significant additional findings. Signer Name: Martell Last MD Signed: 03/24/2021 3:48 AM Workstation Name: [id number]
[2021-03-24 07:22] LABS: Basophils # (Auto) 0.1 K/mm3 (0.0-0.1); Basophils % (Auto) 0.6 % (0.0-1.8); Eosinophils # (Auto) 0.1 K/mm3 (0.0-0.4); Hematocrit 36.8 % (30.3-42.9); Hemoglobin 12.5 gm/dl (10.1-14.3); Lymphocytes # (Auto) 0.8 K/mm3 (1.2-5.4); Mean Corpuscular HGB Conc 34 % (30-34); Mean Corpuscular Volume 87 fl (79-97); Monocytes % (Auto) 8.5 % (0.0-7.3); Platelet Count 145 K/mm3 (140-440); Red Blood Count 4.21 M/mm3 (3.65-5.03); Red Cell Distribution Width 16.6 % (13.2-15.2)
[2021-03-24 07:37] LABS: INR 4.91 (0.87-1.13)
[2021-03-24 07:38] LABS: Albumin 3.3 g/dL (3.9-5); Calcium 8.3 mg/dL (8.4-10.2); Chol/HDL Ratio 1.71 %
--- NOTE | 2021-03-24 09:48 | Consultation ---
History of Present Illness - Reason for Consult Consult date: 03/24/21 acute renal failure, chronic renal failure - History of Present Illness The patient is a 65 YO female with history significant for DM type 2, HTN, prior R MCA stroke, Atrial fibrillation on coumadin, Rheumatic heart disease with mitral stenosis & Aortic stenosis s/p TAVR (09/2019) and CKD stage 3 who presented to [facility] ED 03/23 with left facial droop, slurred speech and AMS. Patient was not able to provide much history due to AMS and also she was on BIPAP at the time ot eval. Per chart symptoms started at 0100 yesterday. Patient was also c/o back pain sob. Initial BP was low around 70/30, Saturation 90% on room air and Blood sugar 373. ED work up showed WBC 4.7, Hemoglobin 12.3, PLT 132, Troponin 0.010, BUN 23, Creat 2.[address] of the head negative for acute process. Patient was started on Levophed, admitted to ICU with suspected Acute CVA, Septic shock, CLAYTON and Acute hypoxemic respiratory failure. Pt was on BIPAP at the time of eval. Nephrology was consulted for further evaluation and treatment of CLAYTON. Past History Past Medical History: atrial fib, heart failure, hypertension, hyperlipidemia, renal failure, stroke Past Surgical History: No surgical history Social history: lives with family Family history: no significant family history Medications and Allergies Allergies Allergy/AdvReac Type Severity Reaction Status Date / Time metformin Allergy Swelling Verified 03/23/21 05:49 Home Medications Medication Instructions Recorded Confirmed Last Taken Type AtorvaSTATin [Lipitor] 40 mg PO QHS 03/23/21 03/23/21 Unknown History Digoxin [Lanoxin] 0.125 mg PO DAILY 03/23/21 03/23/21 Unknown History Doxazosin [Cardura] 2 mg PO QDAY 03/23/21 03/23/21 Unknown History Furosemide [Lasix] 20 mg PO QDAY 03/23/21 03/23/21 Unknown History Insulin Detemir (Nf) [Levemir 45 units SQ QHS 03/23/21 03/23/21 Unknown History Flextouch (Nf)] Insulin Lispro 15 unit SQ TID 03/23/21 03/23/21 Unknown History Losartan Potassium 50 mg PO QDAY 03/23/21 03/23/21 Unknown History NIFEdipine [Nifedipine ER] 60 mg PO QDAY 03/23/21 03/23/21 Unknown History carvediloL [Coreg] 6.25 mg PO BID 03/23/21 03/23/21 Unknown History hydrALAZINE [Apresoline TAB] 100 mg PO TID 03/23/21 03/23/21 Unknown History Active Meds: Active Medications Acetaminophen (Acetaminophen 325 Mg Tab) 650 mg PO Q4H PRN PRN Reason: Pain MILD(1-3)/Fever >100.5/CASTANO Al Hydrox/Mg Hydrox/Simethicone (Alum-Mag Hydroxide-Simethicone [phone]/5ml Oral Liqd 30 Ml) 30 ml PO Q4H PRN PRN Reason: Indigestion Atorvastatin Calcium (Atorvastatin 40 Mg Tab) 80 mg PO QHS [facility] Last Admin: 03/23/21 21:34 Dose: Not Given Documented by: Dextrose (Dextrose 50% In Water (25gm) 50 Ml Syringe) 50 ml IV Q30MIN PRN; Protocol PRN Reason: Hypoglycemia Digoxin (Digoxin 0.125 Mg Tab) 0.125 mg PO DAILY@1700 [facility] Last Admin: 03/23/21 16:48 Dose: 0.125 mg Documented by: Hydrophilic Ointment (Lip Therapy Vaseline) 1 applic TP Q2HR PRN PRN Reason: Dry Lips Sodium Chloride (Nacl 0.9% 1000 Ml) 1,000 mls @ 42 mls/hr IV DIRECT [facility] Norepinephrine (Levophed Drip 4 Mg/Ns 250 Ml) 4 mg in 250 mls @ 7.5 mls/hr IV TITR [facility]O; Protocol Last Titration: 03/24/21 07:00 Dose: 5 mcg/min, 18.75 mls/hr Documented by: Vasopressin 20 unit/ Sodium (Chloride) 101 mls @ 9.09 mls/hr IV TITR [facility]O; Protocol Pantoprazole Sodium 80 mg/ (Sodium Chloride) 100 mls @ 10 mls/hr IV DIRECT [facility] Last Admin: 03/24/21 01:54 Dose: 8 mg/hr, 10 mls/hr Documented by: Cefepime HCl (Cefepime/Ns 2 Gm/100 Ml) 2 gm in 100 mls @ 200 mls/hr IV Q24H [facility] Insulin Glargine (Insulin Glargine 100 Units/Ml) 30 units SUB-Q QHS [facility] Last Admin: 03/23/21 21:36 Dose: 30 units Documented by: Insulin Human Lispro (Insulin Lispro 100 Unit/Ml) 0 unit SUB-Q Q6HR [facility]; Protocol Last Admin: 03/24/21 06:00 Dose: Not Given Documented by: Magnesium Hydroxide (Magnesium Hydroxide (Mom) Oral Liqd Udc) 30 ml PO Q4H PRN PRN Reason: Constipation Multi-Ingred Cream/Lotion/Oil/Oint (Mineral Oil/Petrolatum, White Ophth Oint 3.5 Gm) 1 applic OU Q4HR PRN PRN Reason: Dry Eye(s) Ondansetron HCl (Ondansetron 4 Mg/2 Ml Inj) 4 mg IV Q8H PRN PRN Reason: Nausea And Vomiting Senna (Sennosides 8.6 Mg Tab) 8.6 mg PO Q12HR PRN PRN Reason: Constipation Sodium Chloride (Sodium Chloride 0.9% 10 Ml Flush Syringe) 10 ml IV BID [facility] Last Admin: 03/24/21 09:14 Dose: 10 ml Documented by: Sodium Chloride (Sodium Chloride 0.9% 10 Ml Flush Syringe) 10 ml IV PRN PRN PRN Reason: LINE FLUSH Tramadol HCl (Tramadol 50 Mg Tab) 50 mg PO Q4H PRN PRN Reason: Pain, Moderate (4-6) Review of Systems ROS unobtainable: due to mental status Exam - Vital Signs Vital signs: Vital Signs Temp 92.6 F L 03/23/21 05:30 Results - Lab Results 03/24/21 06:00 03/24/21 06:00 Most recent lab results ABG pH 7.338 (7.320-7.450) 03/24/21 04:17 ABG O2 Saturation 93.9 (0-100) 03/24/21 04:17 Calcium 8.3 mg/dL (8.4-10.2) L 03/24/21 06:00 Phosphorus 3.70 mg/dL (2.5-4.5) 03/23/21 14:30 Magnesium 1.90 mg/dL (1.7-2.3) 03/23/21 14:30 Assessment and Plan 1. Acute kidney injury: Vasomotor CLAYTON in the setting of septic shock. ATN likely. Urine studies and Renal US ordered. Monitor renal function. Non-oliguric. Creatinine level improving. Avoid nephrotoxic agents. Meds dosage based on GFR. 2. FEN: Anion-gap metabolic acidosis, improving. Monitor lytes and volume status. 3. Acute hypoxemic respiratory failure: CXR showed pulmonary congestion / edema. Covid test negative. On BIPAP, wean as tolerated. Diuretics as tolerated. 4. Suspected CVA: CT head negative. Followed by Neuro. 5. Acute encephalopathy: CT head negative. Followed by Neuro. 6. Septic shock, POA: Off pressors. Abx. Follow cultures. 7. A.fib: Rate controlled. Supra-therapeuric INR. Monitor. 8. Coagulopathy: Monitor INR. 9. DM type 2. Subjective: Patient was seen and examined at the bedside. Examination: General appearance: well-developed, appears stated age, on BIPAP HEENT: JULIETTE, atraumatic Neck: trachea midline Respiratory: rales heard Heart: S1S2, no murmur Abdomen: soft, bowel sounds heard, NT Integumentary: no obvious rash Neurologic: alert, answers questions, follow command, some confusion noted Ext: no edema noted
--- NOTE | 2021-03-24 10:30 | Progress Note ---
Assessment and Plan Assessment and plan: 65F with prior R MCA stroke, atiral fibrillation on coumadin, HTN, DM presents with left facial droop and slurred speech, AMS. Symptoms started at 0100 the morning prior to admission.. Initially hypotensive to 80/60. Saturating 90% on room air. Blood sugar 373. Complaining of significant pain in her back and saying she can't breathe. ED Work Up-WBC 4.7, hemoglobin 12.3, PLT 132, Troponin 0.010, CT of the head-No acute finding process Patient seen at bedside, patients at bedside. patient with left facial droop and slurred speech. patient has hx of CVA, HTN, DM and atiral fibrillation on coumadin. Patient was admitted with diagnosis of septic shock, acute hypoxic respiratory failure and CVA. Acute hypoxemic respiratory failure. Septic shock Acute CVA Coagulopathy Diabetes mellitus type 2 03/24. Continue IV antibiotics. Consult ID for further evaluation. Cont. pressors to maintain MAP > 65. Echocardiogram revealed EF of 55% with mild concentric left ventricular hypertrophy. Neurology consultation. The high probability of a clinically significant, sudden or life threatening deterioration of the [hemodynamic, respiratory and neurologic] system(s) required my full and direct attention, intervention and personal management. The aggregate critical care time was [33] minutes. This time is in addition to time spent performing reported procedures but includes the following: [x] Data Review and interpretation [x] Patient assessment and monitoring of vital signs [x] Documentation [x] Medication orders and management History Interval history: No new issues Hospitalist Physical - Constitutional Vitals: Temp Pulse Resp BP Pulse Ox 96.1 F L 80 16 146/88 95 03/24/21 08:00 03/24/21 10:10 03/24/21 10:10 03/24/21 10:10 03/24/21 10:10 General appearance: Present: mild distress, well-nourished - EENT Eyes: Present: PERRL, EOM intact ENT: hearing intact, clear oral mucosa, dentition normal - Neck Neck: Present: supple, normal ROM - Respiratory Respiratory effort: normal Respiratory: bilateral: CTA - Cardiovascular Rhythm: regular Heart Sounds: Present: S1 & S2. Absent: gallop, rub - Extremities Extremities: no ischemia, No edema, Full ROM - Abdominal General gastrointestinal: soft, non-tender, non-distended, normal bowel sounds - Integumentary Integumentary: Present: clear, warm, dry - Neurologic Neurologic: CNII-XII intact, moves all extremities HEART Score - HEART Score Troponin: Troponin T 0.017 ng/mL (0.00-0.029) 03/23/21 14:48 Results - Labs CBC & Chem 7: 03/24/21 06:00 03/24/21 06:00 Labs: Laboratory Last Values WBC 11.3 K/mm3 (4.5-11.0) H 03/24/21 06:00 RBC 4.21 M/mm3 (3.65-5.03) 03/24/21 06:00 Hgb 12.5 gm/dl (10.1-14.3) 03/24/21 06:00 Hct 36.8 % (30.3-42.9) 03/24/21 06:00 MCV 87 fl (79-97) 03/24/21 06:00 MCH 30 pg (28-32) 03/24/21 06:00 MCHC 34 % (30-34) 03/24/21 06:00 RDW 16.6 % (13.2-15.2) H 03/24/21 06:00 Plt Count 145 K/mm3 (140-440) 03/24/21 06:00 Lymph % (Auto) 7.0 % (13.4-35.0) L 03/24/21 06:00 Christian % (Auto) 8.5 % (0.0-7.3) H 03/24/21 06:00 Eos % (Auto) 1.0 % (0.0-4.3) 03/24/21 06:00 Baso % (Auto) 0.6 % (0.0-1.8) 03/24/21 06:00 Lymph # (Auto) 0.8 K/mm3 (1.2-5.4) L 03/24/21 06:00 Christian # (Auto) 1.0 K/mm3 (0.0-0.8) H 03/24/21 06:00 Eos # (Auto) 0.1 K/mm3 (0.0-0.4) 03/24/21 06:00 Baso # (Auto) 0.1 K/mm3 (0.0-0.1) 03/24/21 06:00 Seg Neutrophils % 82.9 % (40.0-70.0) H 03/24/21 06:00 Seg Neutrophils # 9.4 K/mm3 (1.8-7.7) H 03/24/21 06:00 PT 46.8 Sec. (12.2-14.9) H 03/24/21 06:00 INR 4.91 (0.87-1.13) H 03/24/21 06:00 APTT 40.0 Sec. (24.2-36.6) H 03/23/21 05:06 Thrombin Time 18.0 Sec. (15.1-19.6) 03/23/21 05:06 D-Dimer 1850.11 ng/mlDDU (0-234) H 03/23/21 14:48 ABG pH 7.338 (7.320-7.450) 03/24/21 04:17 POC ABG pCO2 36.6 mmHg (32.0-48.0) 03/24/21 04:17 POC ABG pO2 79.7 mmHg (83-108) L 03/24/21 04:17 POC ABG HCO3 19.2 03/24/21 04:17 ABG O2 Saturation 93.9 (0-100) 03/24/21 04:17 POC ABG Base Excess -5.9 03/24/21 04:17 ABG Hemoglobin 12.7 (12.0-17.5) 03/24/21 04:17 ABG Oxyhemoglobin 93.3 (94-98) L 03/24/21 04:17 ABG Methemoglobin 0.3 (0.0-1.5) 03/24/21 04:17 ABG Sodium 139.7 mmol/L (136.0-145.0) 03/24/21 04:17 ABG Potassium 3.7 mmol/L (3.40-4.50) 03/24/21 04:17 ABG Chloride 111.0 mmol/L (98-107) H 03/24/21 04:17 ABG Glucose 111 mg/dL (65-95) H 03/24/21 04:17 Carboxyhemoglobin 0.3 (0.5-1.5) L 03/24/21 04:17 FiO2 % 70 03/24/21 04:17 Sodium 141 mmol/L (137-145) 03/24/21 06:00 Potassium 3.8 mmol/L (3.6-5.0) 03/24/21 06:00 Chloride 110.2 mmol/L (98-107) H 03/24/21 06:00 Carbon Dioxide 22 mmol/L (22-30) 03/24/21 06:00 Anion Gap 13 mmol/L 03/24/21 06:00 BUN 26 mg/dL (7-17) H 03/24/21 06:00 Creatinine 1.9 mg/dL (0.6-1.2) H 03/24/21 06:00 Estimated GFR 32 ml/min 03/24/21 06:00 BUN/Creatinine Ratio 14 % 03/24/21 06:00 Glucose 92 mg/dL (65-100) 03/24/21 06:00 POC Glucose 110 mg/dL (70-105) H 03/24/21 04:50 Hemoglobin A1c 10.3 % (4-6) H 03/24/21 06:00 Lactic Acid 3.50 mmol/L (0.7-2.0) H* 03/23/21 19:30 Calcium 8.3 mg/dL (8.4-10.2) L 03/24/21 06:00 Phosphorus 3.70 mg/dL (2.5-4.5) 03/23/21 14:30 Magnesium 1.90 mg/dL (1.7-2.3) 03/23/21 14:30 Total Bilirubin 1.40 mg/dL (0.1-1.2) H 03/24/21 06:00 AST 46 units/L (5-40) H 03/24/21 06:00 ALT 39 units/L (7-56) 03/24/21 06:00 Alkaline Phosphatase 157 units/L (35-129) H 03/24/21 06:00 Total Creatine Kinase 105 units/L (30-135) 03/23/21 05:06 CK-MB (CK-2) 1.7 ng/mL (0.0-4.0) 03/23/21 05:06 CK-MB (CK-2) Rel Index 1.6 (0-4) 03/23/21 05:06 Troponin T 0.017 ng/mL (0.00-0.029) 03/23/21 14:48 NT-Pro-B Natriuret Pep 2207 pg/mL (0-900) H 03/23/21 14:48 Total Protein 6.9 g/dL (6.3-8.2) 03/24/21 06:00 Albumin 3.3 g/dL (3.9-5) L 03/24/21 06:00 Albumin/Globulin Ratio 0.9 % 03/24/21 06:00 Triglycerides 46 mg/dL (2-149) 03/24/21 06:00 Cholesterol 77 mg/dL (50-199) 03/24/21 06:00 LDL Cholesterol Direct 32 mg/dL (50-130) L 03/24/21 06:00 HDL Cholesterol 45 mg/dL (40-59) 03/24/21 06:00 Cholesterol/HDL Ratio 1.71 % 03/24/21 06:00 Procalcitonin 0.87 ng/mL (<0.15) 03/23/21 14:30 Arterial Blood Glucose 111 mg/dL (65-95) H 03/24/21 04:17 Arterial Blood Ionized Calcium 4.7 mg/dL (4.6-5.3) 03/24/21 04:17 Urine Color [place] (Yellow) 03/23/21 Unknown Urine Turbidity Slightly-cloudy (Clear) 03/23/21 Unknown Urine pH 5.0 (5.0-7.0) 03/23/21 Unknown Ur Specific [place] 1.019 (1.003-1.030) 03/23/21 Unknown Urine Protein >500 mg/dL (Negative) 03/23/21 Unknown Urine Glucose (UA) 150 mg/dL (Negative) 03/23/21 Unknown Urine Ketones Neg mg/dL (Negative) 03/23/21 Unknown Urine Blood Neg (Negative) 03/23/21 Unknown Urine Nitrite Neg (Negative) 03/23/21 Unknown Urine Bilirubin Neg (Negative) 03/23/21 Unknown Urine Urobilinogen 2.0 mg/dL (<2.0) 03/23/21 Unknown Ur Leukocyte Esterase Neg (Negative) 03/23/21 Unknown Urine WBC (Auto) 2.0 /HPF (0.0-6.0) 03/23/21 Unknown Urine RBC (Auto) 15.0 /HPF (0.0-6.0) 03/23/21 Unknown U Epithel Cells (Auto) 1.0 /HPF (0-13.0) 03/23/21 Unknown Urine Bacteria (Auto) 1+ /HPF (Negative) 03/23/21 Unknown Hyaline Casts 8 /LPF 03/23/21 Unknown Urine Mucus Few /HPF 03/23/21 Unknown Coronavirus (PCR) Negative (Negative) 03/23/21 Unknown Microbiology: Microbiology 03/23/21 14:48 Peripheral/Venous Blood Culture - Preliminary Culture in Progress 03/23/21 14:48 Peripheral/Venous Blood Culture - Preliminary Culture in Progress Gamez/IV: Voiding Method Indwelling Catheter Active Medications - Current Medications Current Medications: Generic Name Dose Route Start Last Admin Trade Name Freq PRN Reason Stop Dose Admin Acetaminophen 650 mg 03/23/21 05:47 Acetaminophen 325 Mg Tab PO Q4H PRN Pain MILD(1-3)/Fever >100.5/CASTANO Al Hydrox/Mg Hydrox/Simethicone 30 ml 03/23/21 05:47 Alum-Mag Hydroxide-Simethicone [id number]/5ml Oral Liqd 30 Ml PO Q4H PRN Indigestion Atorvastatin Calcium 80 mg 03/23/21 22:00 03/23/21 21:34 Atorvastatin 40 Mg Tab PO Not Given QHS MANOLO Dextrose 50 ml 03/23/21 17:33 Dextrose 50% In Water (25gm) 50 Ml Syringe IV Q30MIN PRN Hypoglycemia Protocol Digoxin 0.125 mg 03/23/21 17:00 03/23/21 16:48 Digoxin 0.125 Mg Tab PO 0.125 mg DAILY@1700 MANOLO Administration Hydrophilic Ointment 1 applic 03/23/21 11:46 Lip Therapy Vaseline TP Q2HR PRN Dry Lips Sodium Chloride 1,000 mls @ 42 mls/hr 03/23/21 06:00 Nacl 0.9% 1000 Ml IV DIRECT MANOLO Norepinephrine 4 mg in 250 mls @ 7.5 mls/hr 03/23/21 08:00 03/24/21 07:00 Levophed Drip 4 Mg/Ns 250 Ml IV 5 mcg/min TITR MANOLO 18.75 mls/hr Titration Protocol 2 MCG/MIN Vasopressin 20 unit/ Sodium 101 mls @ 9.09 mls/hr 03/23/21 10:00 Chloride IV TITR MANOLO Protocol 0.03 UNITS/MIN Pantoprazole Sodium 80 mg/ 100 mls @ 10 mls/hr 03/23/21 14:00 03/24/21 01:54 Sodium Chloride IV 8 mg/hr DIRECT MANOLO 10 mls/hr Administration 8 MG/HR Cefepime HCl 2 gm in 100 mls @ 200 mls/hr 03/24/21 22:00 Cefepime/Ns 2 Gm/100 Ml IV Q24H [facility] Insulin Glargine 30 units 03/23/21 22:00 03/23/21 21:36 Insulin Glargine 100 Units/Ml SUB-Q 30 units QHS [facility] Administration Insulin Human Lispro 0 unit 03/23/21 18:00 03/24/21 06:00 Insulin Lispro 100 Unit/Ml SUB-Q Not Given Q6HR [facility] Protocol Magnesium Hydroxide 30 ml 03/23/21 05:47 Magnesium Hydroxide (Mom) Oral Liqd Udc PO Q4H PRN Constipation Multi-Ingred Cream/Lotion/Oil/Oint 1 applic 03/23/21 11:46 Mineral Oil/Petrolatum, White Ophth Oint 3.5 Gm OU Q4HR PRN Dry Eye(s) Ondansetron HCl 4 mg 03/23/21 05:47 Ondansetron 4 Mg/2 Ml Inj IV Q8H PRN Nausea And Vomiting Senna 8.6 mg 03/23/21 05:47 Sennosides 8.6 Mg Tab PO Q12HR PRN Constipation Sodium Chloride 10 ml 03/23/21 10:00 03/24/21 09:14 Sodium Chloride 0.9% 10 Ml Flush Syringe IV 10 ml BID MANOLO Administration Sodium Chloride 10 ml 03/23/21 05:47 Sodium Chloride 0.9% 10 Ml Flush Syringe IV PRN PRN LINE FLUSH Tramadol HCl 50 mg 03/23/21 06:31 Tramadol 50 Mg Tab PO Q4H PRN Pain, Moderate (4-6) Nutrition/Malnutrition Assess - Dietary Evaluation Nutrition/Malnutrition Findings: Nutrition Notes Start: 03/24/21 08:09 Freq: Status: Active Protocol: Document 03/24/21 08:09 CW (Rec: 03/24/21 08:21 CW [id number]) Nutrition Notes Need for Assessment generated from: check processing clerk,MST Initial or Follow up Assessment Current Diagnosis Diabetes,Hypertension,Heart Failure Other Pertinent Diagnosis CVA, L hemiparesis Current Diet NPO Labs/Tests BUN 26 Cr 1.9 HgbA1c 10.3 Pertinent Medications Levophed Humalog Lantus Height 5 ft 4 in Weight 53.977 kg [place] Body Weight (kg) 54.54 BMI 20.4 Weight Status Appropriate Subjective/Other Information RN screen for MST and skin risk. Dm score of 18. Is patient on ventilator? No Is Patient Ambulatory and/or Out of Bed No REE-([place]-St. Jeor-confined to bed) [phone] Calculation [facility] Additional Notes protein needs:65 - 108 g (1.2 - 2 g/kgBW) fluid needs: 1500 -1900 ml or per MD order Nutrition Intervention Change Diet Order: Advance diet when medically feasible to Cardiac Consistent Carbohydrate Diet Goal #1 Diet advancement Goal #2 Understand importance of following a Cardiac Consistent Carbohydrate diet Anticipated Discharge Needs: Cardiac Consistent Carbohydrate Diet Follow-Up By: 03/27/21 Additional Comments F/U for diet advancement
--- NOTE | 2021-03-24 11:30 | Consultation ---
History of Present Illness Consult date: 03/24/21 Reason for Consult: Chnage in mentation History of present illness: Alktered mental Status History of present illness: History: 65F with prior R MCA stroke, atiral fibrillation on coumadin, HTN, DM presents with left facial droop and slurred speech, AMS. Symptoms started at 0100 this AM. Initially hypotensive to 80/60. Saturating 90% on room air. Blood sugar 373. Complaining of significant pain in her back and saying she can't breathe. ED Work Up-WBC 4.7, hemoglobin 12.3, PLT 132, Troponin 0.010, CT of the head-No acute finding process she is with a pace maker Patient seen at bedside, she is complainig of lumber pain she is on Cpapp machine Past History Past Medical History: atrial fib, heart failure, hypertension, hyperlipidemia, stroke Past Surgical History: No surgical history Social history: lives with family Family history: no significant family history Medications and Allergies Allergies Allergy/AdvReac Type Severity Reaction Status Date / Time metformin Allergy Swelling Verified 03/23/21 05:49 Home Medications Medication Instructions Recorded Confirmed Last Taken Type Digoxin [Lanoxin] 0.125 mg PO DAILY 03/04/17 03/04/17 03/04/17 History Insulin Glargine [Lantus] 30 units SQ QHS 03/04/17 03/04/17 03/03/17 History Warfarin [Coumadin] 5 mg PO QDAY 03/04/17 03/04/17 03/04/17 History carvediloL [Coreg] 12.5 mg PO QDAY 03/04/17 03/04/17 03/04/17 History Review of Systems Constitutional: fatigue, weakness Ears, nose, mouth and throat: no epistaxis, no bleeding gums Cardiovascular: no chest pain Respiratory: no congestion, no wheezing Gastrointestinal: no melena, no hematochezia Rectal: no itching, no hemorrhoids Musculoskeletal: muscle weakness Integumentary: no rash, no pruritis, no lesions Psychiatric: no disorientation, no hallucinations Hematologic/Lymphatic: no easy bruising, no easy bleeding Allergic/Immunologic: no urticaria Past History Past Medical History: atrial fib, heart failure, hypertension, hyperlipidemia, stroke Past Surgical History: No surgical history Social history: lives with family Family history: no significant family history Medications and Allergies Allergies Allergy/AdvReac Type Severity Reaction Status Date / Time metformin Allergy Swelling Verified 03/23/21 05:49 Home Medications Medication Instructions Recorded Confirmed Last Taken Type AtorvaSTATin [Lipitor] 40 mg PO QHS 03/23/21 03/23/21 Unknown History Digoxin [Lanoxin] 0.125 mg PO DAILY 03/23/21 03/23/21 Unknown History Doxazosin [Cardura] 2 mg PO QDAY 03/23/21 03/23/21 Unknown History Furosemide [Lasix] 20 mg PO QDAY 03/23/21 03/23/21 Unknown History Insulin Detemir (Nf) [Levemir 45 units SQ QHS 03/23/21 03/23/21 Unknown History Flextouch (Nf)] Insulin Lispro 15 unit SQ TID 03/23/21 03/23/21 Unknown History Losartan Potassium 50 mg PO QDAY 03/23/21 03/23/21 Unknown History NIFEdipine [Nifedipine ER] 60 mg PO QDAY 03/23/21 03/23/21 Unknown History carvediloL [Coreg] 6.25 mg PO BID 03/23/21 03/23/21 Unknown History hydrALAZINE [Apresoline TAB] 100 mg PO TID 03/23/21 03/23/21 Unknown History Active Meds: Active Medications Acetaminophen (Acetaminophen 325 Mg Tab) 650 mg PO Q4H PRN PRN Reason: Pain MILD(1-3)/Fever >100.5/CASTANO Al Hydrox/Mg Hydrox/Simethicone (Alum-Mag Hydroxide-Simethicone [id number]/5ml Oral Liqd 30 Ml) 30 ml PO Q4H PRN PRN Reason: Indigestion Atorvastatin Calcium (Atorvastatin 40 Mg Tab) 80 mg PO QHS [facility] Last Admin: 03/23/21 21:34 Dose: Not Given Documented by: Dextrose (Dextrose 50% In Water (25gm) 50 Ml Syringe) 50 ml IV Q30MIN PRN; Protocol PRN Reason: Hypoglycemia Digoxin (Digoxin 0.125 Mg Tab) 0.125 mg PO Q48H [facility] Hydrophilic Ointment (Lip Therapy Vaseline) 1 applic TP Q2HR PRN PRN Reason: Dry Lips Sodium Chloride (Nacl 0.9% 1000 Ml) 1,000 mls @ 42 mls/hr IV DIRECT MANOLO Norepinephrine (Levophed Drip 4 Mg/Ns 250 Ml) 4 mg in 250 mls @ 7.5 mls/hr IV TITR MANOLO; Protocol Last Titration: 03/24/21 10:21 Dose: 1 mcg/min, 3.75 mls/hr Documented by: Vasopressin 20 unit/ Sodium (Chloride) 101 mls @ 9.09 mls/hr IV TITR MANOLO; Protocol Pantoprazole Sodium 80 mg/ (Sodium Chloride) 100 mls @ 10 mls/hr IV DIRECT MANOLO Last Admin: 03/24/21 01:54 Dose: 8 mg/hr, 10 mls/hr Documented by: Cefepime HCl (Cefepime/Ns 2 Gm/100 Ml) 2 gm in 100 mls @ 200 mls/hr IV Q24H MANOLO Insulin Glargine (Insulin Glargine 100 Units/Ml) 30 units SUB-Q QHS MANOLO Last Admin: 03/23/21 21:36 Dose: 30 units Documented by: Insulin Human Lispro (Insulin Lispro 100 Unit/Ml) 0 unit SUB-Q Q6HR [facility]; Protocol Last Admin: 03/24/21 06:00 Dose: Not Given Documented by: Magnesium Hydroxide (Magnesium Hydroxide (Mom) Oral Liqd Udc) 30 ml PO Q4H PRN PRN Reason: Constipation Multi-Ingred Cream/Lotion/Oil/Oint (Mineral Oil/Petrolatum, White Ophth Oint 3.5 Gm) 1 applic OU Q4HR PRN PRN Reason: Dry Eye(s) Ondansetron HCl (Ondansetron 4 Mg/2 Ml Inj) 4 mg IV Q8H PRN PRN Reason: Nausea And Vomiting Senna (Sennosides 8.6 Mg Tab) 8.6 mg PO Q12HR PRN PRN Reason: Constipation Sodium Chloride (Sodium Chloride 0.9% 10 Ml Flush Syringe) 10 ml IV BID [facility] Last Admin: 03/24/21 09:14 Dose: 10 ml Documented by: Sodium Chloride (Sodium Chloride 0.9% 10 Ml Flush Syringe) 10 ml IV PRN PRN PRN Reason: LINE FLUSH Tramadol HCl (Tramadol 50 Mg Tab) 50 mg PO Q4H PRN PRN Reason: Pain, Moderate (4-6) Physical Examination - Vital Signs Vital Signs: Vital Signs Temp 92.6 F L 03/23/21 05:30 - Constitutional General appearance: uncomfortable, other (alert interactive she is on Cpap difficult to get details hx from her of check mental status ) - EENT EENT: Present: PERRL, mucous membranes moist - Respiratory Respiratory: Present: lungs clear, crackles - Cardiovascular Cardiovascular: Present: other (irregular rate ) Extremities: Present: no peripheral edema bilatateraly, no clubbing, cyanosis - Gastrointestinal Gastrointestinal: Present: normoactive bowel sounds - Integumentary Integumentary: Present: normal - Neurologic Cranial nerve examination: PERRL, EOMI, other (left facial droop) Sensorimotor examination: intact Detailed motor examination: other (she is with 3+/5 left upper and 4/5 lower bilateral and right upper 4/5, planter is down going bilateral, gait unable to do.) Detailed sensory examination: intact Reflex and gait examination: other (unable to do gait) Results - Laboratory Findings CBC and BMP: 03/24/21 06:00 03/24/21 06:00 Abnormal Lab Findings: Abnormal Labs 03/23/21 03/23/21 03/23/21 05:06 05:06 10:07 WBC RDW 16.4 H Plt Count 132 L Lymph % (Auto) [place] % (Auto) Lymph # (Auto) 0.9 L [place] # (Auto) Baso # (Auto) Seg Neutrophils % 72.4 H Seg Neutrophils # PT 38.3 H INR 3.86 H APTT 40.0 H D-Dimer ABG pH 7.220 L POC ABG pO2 59.3 L ABG Oxyhemoglobin ABG Potassium 5.0 H ABG Chloride 108.0 H ABG Glucose 364 H Carboxyhemoglobin Sodium Chloride Carbon Dioxide BUN Creatinine Glucose POC Glucose Hemoglobin A1c Lactic Acid Calcium Total Bilirubin AST Alkaline Phosphatase NT-Pro-B Natriuret Pep Albumin LDL Cholesterol Direct Arterial Blood Glucose 364 H Arterial Blood Ionized Calcium 4.4 L 03/23/21 03/23/21 03/23/21 11:34 14:30 14:48 WBC RDW Plt Count Lymph % (Auto) [place] % (Auto) Lymph # (Auto) [place] # (Auto) Baso # (Auto) Seg Neutrophils % Seg Neutrophils # PT 60.1 H INR 6.71 H* APTT D-Dimer 1850.11 H ABG pH POC ABG pO2 ABG Oxyhemoglobin ABG Potassium ABG Chloride ABG Glucose Carboxyhemoglobin Sodium 136 L Chloride Carbon Dioxide 17 L BUN 26 H Creatinine 2.3 H Glucose 383 H POC Glucose 340 H Hemoglobin A1c Lactic Acid Calcium Total Bilirubin 2.20 H AST 76 H Alkaline Phosphatase 166 H NT-Pro-B Natriuret Pep Albumin 3.4 L LDL Cholesterol Direct Arterial Blood Glucose Arterial Blood Ionized Calcium 03/23/21 03/23/21 03/23/21 14:48 14:48 17:24 WBC RDW Plt Count Lymph % (Auto) [place] % (Auto) Lymph # (Auto) [place] # (Auto) Baso # (Auto) Seg Neutrophils % Seg Neutrophils # PT INR APTT D-Dimer ABG pH POC ABG pO2 ABG Oxyhemoglobin ABG Potassium ABG Chloride ABG Glucose Carboxyhemoglobin Sodium Chloride Carbon Dioxide BUN Creatinine Glucose POC Glucose 338 H Hemoglobin A1c Lactic Acid 4.20 H* Calcium Total Bilirubin AST Alkaline Phosphatase NT-Pro-B Natriuret Pep 2207 H Albumin LDL Cholesterol Direct Arterial Blood Glucose Arterial Blood Ionized Calcium 03/23/21 03/23/21 03/23/21 19:30 19:30 19:30 WBC 12.3 H RDW 16.1 H Plt Count 136 L Lymph % (Auto) 6.6 L [place] % (Auto) Lymph # (Auto) 0.8 L [place] # (Auto) Baso # (Auto) 0.2 H Seg Neutrophils % 88.1 H Seg Neutrophils # 10.9 H PT INR APTT D-Dimer ABG pH POC ABG pO2 ABG Oxyhemoglobin ABG Potassium ABG Chloride ABG Glucose Carboxyhemoglobin Sodium Chloride Carbon Dioxide 19 L BUN 26 H Creatinine 2.2 H Glucose 341 H POC Glucose Hemoglobin A1c Lactic Acid 3.50 H* Calcium 8.0 L Total Bilirubin 1.90 H AST 65 H Alkaline Phosphatase 158 H NT-Pro-B Natriuret Pep Albumin 3.1 L LDL Cholesterol Direct Arterial Blood Glucose Arterial Blood Ionized Calcium 03/23/21 03/24/21 03/24/21 23:21 04:17 04:50 WBC RDW Plt Count Lymph % (Auto) [place] % (Auto) Lymph # (Auto) [place] # (Auto) Baso # (Auto) Seg Neutrophils % Seg Neutrophils # PT INR APTT D-Dimer ABG pH POC ABG pO2 79.7 L ABG Oxyhemoglobin 93.3 L ABG Potassium ABG Chloride 111.0 H ABG Glucose 111 H Carboxyhemoglobin 0.3 L Sodium Chloride Carbon Dioxide BUN Creatinine Glucose POC Glucose 283 H 110 H Hemoglobin A1c Lactic Acid Calcium Total Bilirubin AST Alkaline Phosphatase NT-Pro-B Natriuret Pep Albumin LDL Cholesterol Direct Arterial Blood Glucose 111 H Arterial Blood Ionized Calcium 03/24/21 03/24/21 03/24/21 06:00 06:00 06:00 WBC 11.3 H RDW 16.6 H Plt Count Lymph % (Auto) 7.0 L [place] % (Auto) 8.5 H Lymph # (Auto) 0.8 L [place] # (Auto) 1.0 H Baso # (Auto) Seg Neutrophils % 82.9 H Seg Neutrophils # 9.4 H PT INR APTT D-Dimer ABG pH POC ABG pO2 ABG Oxyhemoglobin ABG Potassium ABG Chloride ABG Glucose Carboxyhemoglobin Sodium Chloride 110.2 H Carbon Dioxide BUN 26 H Creatinine 1.9 H Glucose POC Glucose Hemoglobin A1c 10.3 H Lactic Acid Calcium 8.3 L Total Bilirubin 1.40 H AST 46 H Alkaline Phosphatase 157 H NT-Pro-B Natriuret Pep Albumin 3.3 L LDL Cholesterol Direct 32 L Arterial Blood Glucose Arterial Blood Ionized Calcium 03/24/21 06:00 WBC RDW Plt Count Lymph % (Auto) [place] % (Auto) Lymph # (Auto) [place] # (Auto) Baso # (Auto) Seg Neutrophils % Seg Neutrophils # PT 46.8 H INR 4.91 H APTT D-Dimer ABG pH POC ABG pO2 ABG Oxyhemoglobin ABG Potassium ABG Chloride ABG Glucose Carboxyhemoglobin Sodium Chloride Carbon Dioxide BUN Creatinine Glucose POC Glucose Hemoglobin A1c Lactic Acid Calcium Total Bilirubin AST Alkaline Phosphatase NT-Pro-B Natriuret Pep Albumin LDL Cholesterol Direct Arterial Blood Glucose Arterial Blood Ionized Calcium Assessment and Plan Assessment and Plan - Patient Problems #pt. preesnted with confusion/hypotension -she is with a hx of CVA and residual left side weakness -CT brain is remarkable for remote right MCA and left reontal CVA no hemorrhage -she is with a pace maker -Hx of AF on coumadine -NIH on initial evaluation is #2 she is not a candidate for TPA -INR#10.3 -can not have MRI due to pace maker -Can not have CTA due to Creat#1.9 -US carotid consider repeat CT brain as needed -Hold coumadin for today -Pt/ST- -Lipid profil pending -Lipitor 40 mg -ASA 81 mg daily # Back pain with no weakness she is with diffuse tenderness lumbar region --schadual CT lumbar spine -pt therapy -neurontine 100 mg bid # Hypertension Monitor blood pressure Resume home antihypertensive PRN hydralazine # Hyperlipidemia -LDL# pending -Lipitor 40 mg # Renal insufficiency - # CHF (congestive heart failure) Continue BB, statin and diuretic ECHO showed sever MS with dilated LA , EF # 55%,Right ventricular dilatation and TR,PH # Diabetes Monitor blood sugar with SSI Continue antihyperglycemia A1C#10.3 need better control of suger # Full code status Current Visit: Yes Status: Acute Plan to address problem: Patient is full code # DVT prophylaxis Heparin subcutaneous PLAN 1-CT lumber 2- Pt therapy 3- Hold coumadin today 4- Lipid profil 5- Lipitor 40 mg daily and ASA 81 mg 6- US carotid 7- neurontine 100 mg bid 8- Consider Repeat Ct brain as needed if change in mentation 9- monitor BP ,breathing and kidney function will follow
--- NOTE | 2021-03-24 11:31 | Consultation ---
History of Present Illness Consult date: 03/24/21 Consult reason: hypotension, known to you History of present illness: Patient is a 65-year old F with multiple medical problems. She has a cardiac history of paroxysmal atrial fibrillation and rheumatic heart disease with mitral stenosis and aortic stenosis. September of 2019, she underwent aortic valve replacement (TAVR) at [facility]. She is on warfarin for oral anticoagulation. Patient also has a pacemaker implant. Co-morbidities includes HTN, DM, prior CVA and renal failure. Patient was brought in with hypotension, suspected CVA and acute hypoxic respiratory failure. She is currently on Bipap therapy and pressors for support. A CT scan on the head reports no acute abnormalities. Chest x-ray reports left perihilar nodular opacity. No evidence of interstitial edema. COVID serology test was negative. Venous doppler showed no evidence of lower extremity DVT. 12- lead ECG is ventricular paced rhythm. Initial labs shows lactic acidosis, elevated glucose greater than 300 and a creatinine of 2.3. There was also mild elevation of AST. She had a INR of 3.8. Further evaluation with an echocardiogram reports an LVEF 55%. There is severe biatrial enlargement with dilated right ventricle. There is severe mitral stenosis with a mean gradient of 9.8. There is severe tricuspid regurgitation with severe pulmonary hypertension, RVSP 66 mmHG. Findings are not significantly changed from an echo done in 2019 following her TAVR procedure. Past History Past Medical History: atrial fib, diabetes, heart failure, hypertension, hyperlipidemia, stroke Past Surgical History: Other (TAVR in 2019 at [place], Pacemaker implant) Social history: lives with family Family history: no significant family history Medications and Allergies Allergies Allergy/AdvReac Type Severity Reaction Status Date / Time metformin Allergy Swelling Verified 03/23/21 05:49 Home Medications Medication Instructions Recorded Confirmed Last Taken Type AtorvaSTATin [Lipitor] 40 mg PO QHS 03/23/21 03/23/21 Unknown History Digoxin [Lanoxin] 0.125 mg PO DAILY 03/23/21 03/23/21 Unknown History Doxazosin [Cardura] 2 mg PO QDAY 03/23/21 03/23/21 Unknown History Furosemide [Lasix] 20 mg PO QDAY 03/23/21 03/23/21 Unknown History Insulin Detemir (Nf) [Levemir 45 units SQ QHS 03/23/21 03/23/21 Unknown History Flextouch (Nf)] Insulin Lispro 15 unit SQ TID 03/23/21 03/23/21 Unknown History Losartan Potassium 50 mg PO QDAY 03/23/21 03/23/21 Unknown History NIFEdipine [Nifedipine ER] 60 mg PO QDAY 03/23/21 03/23/21 Unknown History carvediloL [Coreg] 6.25 mg PO BID 03/23/21 03/23/21 Unknown History hydrALAZINE [Apresoline TAB] 100 mg PO TID 03/23/21 03/23/21 Unknown History Active Meds: Active Medications Acetaminophen (Acetaminophen 325 Mg Tab) 650 mg PO Q4H PRN PRN Reason: Pain MILD(1-3)/Fever >100.5/CASTANO Al Hydrox/Mg Hydrox/Simethicone (Alum-Mag Hydroxide-Simethicone [id number]/5ml Oral Liqd 30 Ml) 30 ml PO Q4H PRN PRN Reason: Indigestion Atorvastatin Calcium (Atorvastatin 40 Mg Tab) 80 mg PO QHS MANOLO Last Admin: 03/23/21 21:34 Dose: Not Given Documented by: Dextrose (Dextrose 50% In Water (25gm) 50 Ml Syringe) 50 ml IV Q30MIN PRN; Protocol PRN Reason: Hypoglycemia Digoxin (Digoxin 0.125 Mg Tab) 0.125 mg PO Q48H MANOLO Hydrophilic Ointment (Lip Therapy Vaseline) 1 applic TP Q2HR PRN PRN Reason: Dry Lips Sodium Chloride (Nacl 0.9% 1000 Ml) 1,000 mls @ 42 mls/hr IV DIRECT MANOLO Norepinephrine (Levophed Drip 4 Mg/Ns 250 Ml) 4 mg in 250 mls @ 7.5 mls/hr IV TITR MANOLO; Protocol Last Titration: 03/24/21 10:21 Dose: 1 mcg/min, 3.75 mls/hr Documented by: Vasopressin 20 unit/ Sodium (Chloride) 101 mls @ 9.09 mls/hr IV TITR MANOLO; Protocol Pantoprazole Sodium 80 mg/ (Sodium Chloride) 100 mls @ 10 mls/hr IV DIRECT MANOLO Last Admin: 03/24/21 01:54 Dose: 8 mg/hr, 10 mls/hr Documented by: Cefepime HCl (Cefepime/Ns 2 Gm/100 Ml) 2 gm in 100 mls @ 200 mls/hr IV Q24H [facility] Insulin Glargine (Insulin Glargine 100 Units/Ml) 30 units SUB-Q QHS [facility] Last Admin: 03/23/21 21:36 Dose: 30 units Documented by: Insulin Human Lispro (Insulin Lispro 100 Unit/Ml) 0 unit SUB-Q Q6HR [facility]; Protocol Last Admin: 03/24/21 06:00 Dose: Not Given Documented by: Magnesium Hydroxide (Magnesium Hydroxide (Mom) Oral Liqd Udc) 30 ml PO Q4H PRN PRN Reason: Constipation Multi-Ingred Cream/Lotion/Oil/Oint (Mineral Oil/Petrolatum, White Ophth Oint 3.5 Gm) 1 applic OU Q4HR PRN PRN Reason: Dry Eye(s) Ondansetron HCl (Ondansetron 4 Mg/2 Ml Inj) 4 mg IV Q8H PRN PRN Reason: Nausea And Vomiting Senna (Sennosides 8.6 Mg Tab) 8.6 mg PO Q12HR PRN PRN Reason: Constipation Sodium Chloride (Sodium Chloride 0.9% 10 Ml Flush Syringe) 10 ml IV BID [facility] Last Admin: 03/24/21 09:14 Dose: 10 ml Documented by: Sodium Chloride (Sodium Chloride 0.9% 10 Ml Flush Syringe) 10 ml IV PRN PRN PRN Reason: LINE FLUSH Tramadol HCl (Tramadol 50 Mg Tab) 50 mg PO Q4H PRN PRN Reason: Pain, Moderate (4-6) Physical Examination Vital Signs Temp 92.6 F L 03/23/21 05:30 General appearance: other (in Bipap) Cardiac: Positive: Other (ventricular paced rhythm.) Results 03/24/21 06:00 03/24/21 06:00 Cardiac Enzymes 03/23/21 03/23/21 03/24/21 Range/Units 14:30 19:30 06:00 AST 76 H 65 H 46 H (5-40) units/L Coagulation 03/23/21 03/24/21 Range/Units 14:48 06:00 PT 60.1 H 46.8 H (12.2-14.9) Sec. INR 6.71 H* 4.91 H (0.87-1.13) Lipids 03/24/21 Range/Units 06:00 Triglycerides 46 (2-149) mg/dL Cholesterol 77 (50-199) mg/dL HDL Cholesterol 45 (40-59) mg/dL Cholesterol/HDL Ratio 1.71 % CBC 03/23/21 03/24/21 Range/Units 19:30 06:00 WBC 12.3 H 11.3 H (4.5-11.0) K/mm3 RBC 4.19 4.21 (3.65-5.03) M/mm3 Hgb 12.3 12.5 (10.1-14.3) gm/dl Hct 36.5 36.8 (30.3-42.9) % Plt Count 136 L 145 (140-440) K/mm3 Lymph # (Auto) 0.8 L 0.8 L (1.2-5.4) K/mm3 [place] # (Auto) 0.4 1.0 H (0.0-0.8) K/mm3 Eos # (Auto) 0.1 0.1 (0.0-0.4) K/mm3 Baso # (Auto) 0.2 H 0.1 (0.0-0.1) K/mm3 Comprehensive Metabolic Panel 03/23/21 03/23/21 03/24/21 Range/Units 14:30 19:30 06:00 Sodium 136 L 138 141 (137-145) mmol/L Potassium 4.4 4.0 3.8 (3.6-5.0) mmol/L Chloride 103.6 105.3 110.2 H (98-107) mmol/L Carbon Dioxide 17 L 19 L 22 (22-30) mmol/L BUN 26 H 26 H 26 H (7-17) mg/dL Creatinine 2.3 H 2.2 H 1.9 H (0.6-1.2) mg/dL Glucose 383 H 341 H 92 (65-100) mg/dL Calcium 8.4 8.0 L 8.3 L (8.4-10.2) mg/dL AST 76 H 65 H 46 H (5-40) units/L ALT 44 40 39 (7-56) units/L Alkaline Phosphatase 166 H 158 H 157 H (35-129) units/L Total Protein 6.7 6.8 6.9 (6.3-8.2) g/dL Albumin 3.4 L 3.1 L 3.3 L (3.9-5) g/dL Assessment and Plan - Patient Problems (1) Rheumatic heart disease Current Visit: No Status: Acute
--- NOTE | 2021-03-24 12:29 | Progress Note ---
Assessment and Plan Acute hypoxemic respiratory failure. Septic shock Acute CVA Coagulopathy Diabetes mellitus type 2 s/p PPM -Continue with BIPAP, get ABG and CXR -Discussed with GI -Hold off any VTE prophylaxis, elevated INR -Titrate supplemental oxygen to keep SpO2 89-92% -Therapy/Evaluation: PT/OT evaluation -DVT Prophylaxis: SCD - LDL < 70, telemetry monitoring -Glycemic control Target blood glucose 80-180- had episode of hypoglycemia, start on [id number] -Blood pressure control, add Hydrallazine -Agitation management -Place OGT fro tube feeding and nutritional support -Supportive transfusions as clinically indicated to keep HgB >7g/dL -CTscan without contrast of the back to better evaluate back pain. -Cardioprotective measures -Updated her at the bedside -Discussed with GI CONDITION: CRITICAL PROGNOSIS: GUARDED CODE STATUS: FULL CODE The high probability of a clinically significant, sudden or life threatening deterioration of the [hemodynamic, respiratory and neurologic] system(s) required my full and direct attention, intervention and personal management. The aggregate critical care time was [33] minutes. This time is in addition to time spent performing reported procedures but includes the following: [x] Data Review and interpretation [x] Patient assessment and monitoring of vital signs [x] Documentation [x] Medication orders and management Subjective Date of service: 03/24/21 Interval history: 65F with prior R MCA stroke, atiral fibrillation on coumadin, HTN, DM presents with left facial droop and slurred speech, AMS. Symptoms started at 0100 the morning prior to admission.. Initially hypotensive to 80/60. Saturating 90% on room air. Blood sugar 373. Complaining of significant pain in her back and saying she can't breathe. ED Work Up-WBC 4.7, hemoglobin 12.3, PLT 132, Troponin 0.010, CT of the head-No acute finding process Patient seen at bedside, patients at bedside. patient with left facial droop and slurred speech. patient has hx of CVA, HTN, DM and atiral fibrillation on coumadin. Patient was admitted with diagnosis of septic shock, acute hypoxic respiratory failure and CVA. 03/24 -Seen and examined. Vitals, labs, medications, chart reviewed. On BIPAP and her is at the bedside. She complains of back pain. Episode of coffee ground emesis, discussed with GI at the bedside, he states there is no need fro any interventions at this time. Objective - Exam Narrative Exam: Physical Exam: Constitutional: calm, no distress, on BIPAP via FFM Head, Ears, Nose: Normocephalic, atraumatic. External ears, nose normal Eyes: Conjunctivae/corneas clear. No icterus. No ptosis. Neck: Supple, no meningeal signs Oral: Limited Cardiovascular: S1, S2 normal. Left chest wall device- Telemtry- paced Respiratory: Good air entry, clear to auscultation bilaterally GI: Soft, non-tender; bowel sounds normal. No peritoneal signs Musculoskeletal: No pedal edema, no cyanosis. Skin: No rash or abscess Hem/Lymphatic: No palpable cervical or supraclavicular nodes. No lymphangitis Psych: Intermittent agitation Neurological: calm, non focal exam Vital Signs - 12hr 03/24/21 03/24/21 03/24/21 00:30 00:40 00:45 Temperature Pulse Rate 80 80 82 Respiratory 23 30 H Rate Blood Pressure 132/82 132/82 131/79 O2 Sat by Pulse 99 99 98 Oximetry 03/24/21 03/24/21 03/24/21 00:50 01:00 01:10 Temperature Pulse Rate 80 80 80 Respiratory 27 H 30 H 27 H Rate Blood Pressure 131/79 136/80 136/80 O2 Sat by Pulse 99 100 100 Oximetry 03/24/21 03/24/21 03/24/21 01:20 01:30 01:40 Temperature Pulse Rate 80 80 80 Respiratory 22 18 23 Rate Blood Pressure 128/82 128/86 128/86 O2 Sat by Pulse 100 100 100 Oximetry 03/24/21 03/24/21 03/24/21 01:50 02:00 02:10 Temperature Pulse Rate 80 80 80 Respiratory 30 H 21 23 Rate Blood Pressure 127/83 129/80 129/80 O2 Sat by Pulse 100 100 100 Oximetry 03/24/21 03/24/21 03/24/21 02:20 02:30 02:40 Temperature Pulse Rate 80 80 80 Respiratory 13 26 H 20 Rate Blood Pressure 133/84 130/81 130/81 O2 Sat by Pulse 100 100 100 Oximetry 03/24/21 03/24/21 03/24/21 02:50 03:00 03:10 Temperature Pulse Rate 85 81 81 Respiratory 26 H 23 17 Rate Blood Pressure 132/86 114/72 114/72 O2 Sat by Pulse 95 90 Oximetry 03/24/21 03/24/21 03/24/21 03:11 03:20 03:30 Temperature 97.8 F Pulse Rate 80 80 Respiratory 20 20 Rate Blood Pressure 112/65 120/75 O2 Sat by Pulse 97 100 Oximetry 03/24/21 03/24/21 03/24/21 03:40 03:50 04:00 Temperature Pulse Rate 80 80 80 Respiratory 21 21 19 Rate Blood Pressure 120/75 122/73 125/69 O2 Sat by Pulse 99 97 97 Oximetry 03/24/21 03/24/21 03/24/21 04:10 04:20 04:30 Temperature Pulse Rate 80 80 80 Respiratory 17 19 18 Rate Blood Pressure 125/69 122/71 133/73 O2 Sat by Pulse 97 97 96 Oximetry 03/24/21 03/24/21 03/24/21 04:40 04:50 05:00 Temperature Pulse Rate 80 80 80 Respiratory 18 18 19 Rate Blood Pressure 133/73 127/79 129/81 O2 Sat by Pulse 97 97 96 Oximetry 03/24/21 03/24/21 03/24/21 05:10 05:20 05:30 Temperature Pulse Rate 80 80 80 Respiratory 20 19 17 Rate Blood Pressure 129/81 128/85 124/80 O2 Sat by Pulse 96 98 95 Oximetry 03/24/21 03/24/21 03/24/21 05:40 05:50 06:00 Temperature Pulse Rate 80 80 80 Respiratory 13 16 17 Rate Blood Pressure 124/80 129/83 127/84 O2 Sat by Pulse 96 97 Oximetry 03/24/21 03/24/21 03/24/21 06:10 06:20 06:30 Temperature Pulse Rate 80 80 80 Respiratory 17 17 17 Rate Blood Pressure 127/84 134/83 130/87 O2 Sat by Pulse 98 97 98 Oximetry 03/24/21 03/24/21 03/24/21 06:40 06:50 07:00 Temperature Pulse Rate 80 80 80 Respiratory 17 17 17 Rate Blood Pressure 130/87 133/85 139/86 O2 Sat by Pulse 98 98 94 Oximetry 03/24/21 03/24/21 03/24/21 07:10 07:20 07:29 Temperature Pulse Rate 80 80 80 Respiratory 14 16 20 Rate Blood Pressure 139/86 126/84 116/88 O2 Sat by Pulse 96 97 96 Oximetry 03/24/21 03/24/21 03/24/21 07:30 07:40 07:50 Temperature Pulse Rate 80 80 80 Respiratory 16 15 15 Rate Blood Pressure 116/88 116/88 112/68 O2 Sat by Pulse 96 96 96 Oximetry 03/24/21 03/24/21 03/24/21 08:00 08:10 08:20 Temperature 96.1 F L Pulse Rate 80 80 80 Respiratory 15 15 16 Rate Blood Pressure 128/83 128/83 137/86 O2 Sat by Pulse 95 95 94 Oximetry 03/24/21 03/24/21 03/24/21 08:30 08:40 08:50 Temperature Pulse Rate 80 80 80 Respiratory 16 15 17 Rate Blood Pressure 135/85 135/85 131/88 O2 Sat by Pulse 95 95 93 Oximetry 03/24/21 03/24/21 03/24/21 09:00 09:10 09:20 Temperature Pulse Rate 80 80 80 Respiratory 17 15 17 Rate Blood Pressure 128/86 128/86 136/87 O2 Sat by Pulse 94 94 96 Oximetry 03/24/21 03/24/21 03/24/21 09:30 09:40 09:50 Temperature Pulse Rate 80 80 80 Respiratory 17 15 16 Rate Blood Pressure 136/87 136/87 143/89 O2 Sat by Pulse 95 96 95 Oximetry 03/24/21 03/24/21 03/24/21 10:00 10:10 10:20 Temperature Pulse Rate 80 80 80 Respiratory 16 16 15 Rate Blood Pressure 146/88 146/88 140/84 O2 Sat by Pulse 96 95 97 Oximetry 03/24/21 03/24/21 03/24/21 10:30 10:40 10:50 Temperature Pulse Rate 80 80 80 Respiratory 15 15 14 Rate Blood Pressure 141/86 141/86 139/112 O2 Sat by Pulse 96 96 94 Oximetry 03/24/21 03/24/21 03/24/21 11:00 11:07 11:10 Temperature Pulse Rate 80 80 80 Respiratory 12 21 13 Rate Blood Pressure 127/86 127/86 127/86 O2 Sat by Pulse 97 97 95 Oximetry Gastrointestinal: normoactive bowel sounds Integumentary: normal CBC and BMP: 03/24/21 06:00 03/25/21 03:50 ABG, PT/INR, D-dimer: ABG ABG pH 7.338 (7.320-7.450) 03/24/21 04:17 POC ABG pCO2 36.6 mmHg (32.0-48.0) 03/24/21 04:17 POC ABG pO2 79.7 mmHg (83-108) L 03/24/21 04:17 POC ABG HCO3 19.2 03/24/21 04:17 ABG O2 Saturation 93.9 (0-100) 03/24/21 04:17 PT/INR, D-dimer PT 46.8 Sec. (12.2-14.9) H 03/24/21 06:00 INR 4.91 (0.87-1.13) H 03/24/21 06:00 D-Dimer 1850.11 ng/mlDDU (0-234) H 03/23/21 14:48 Abnormal lab findings: Abnormal Labs 03/23/21 03/23/21 03/23/21 05:06 05:06 10:07 WBC RDW 16.4 H Plt Count 132 L Lymph % (Auto) [place] % (Auto) Lymph # (Auto) 0.9 L [place] # (Auto) Baso # (Auto) Seg Neutrophils % 72.4 H Seg Neutrophils # PT 38.3 H INR 3.86 H APTT 40.0 H D-Dimer ABG pH 7.220 L POC ABG pO2 59.3 L ABG Oxyhemoglobin ABG Potassium 5.0 H ABG Chloride 108.0 H ABG Glucose 364 H Carboxyhemoglobin Sodium Chloride Carbon Dioxide BUN Creatinine Glucose POC Glucose Hemoglobin A1c Lactic Acid Calcium Total Bilirubin AST Alkaline Phosphatase NT-Pro-B Natriuret Pep Albumin LDL Cholesterol Direct Arterial Blood Glucose 364 H Arterial Blood Ionized Calcium 4.4 L 03/23/21 03/23/21 03/23/21 11:34 14:30 14:48 WBC RDW Plt Count Lymph % (Auto) [place] % (Auto) Lymph # (Auto) [place] # (Auto) Baso # (Auto) Seg Neutrophils % Seg Neutrophils # PT 60.1 H INR 6.71 H* APTT D-Dimer 1850.11 H ABG pH POC ABG pO2 ABG Oxyhemoglobin ABG Potassium ABG Chloride ABG Glucose Carboxyhemoglobin Sodium 136 L Chloride Carbon Dioxide 17 L BUN 26 H Creatinine 2.3 H Glucose 383 H POC Glucose 340 H Hemoglobin A1c Lactic Acid Calcium Total Bilirubin 2.20 H AST 76 H Alkaline Phosphatase 166 H NT-Pro-B Natriuret Pep Albumin 3.4 L LDL Cholesterol Direct Arterial Blood Glucose Arterial Blood Ionized Calcium 03/23/21 03/23/21 03/23/21 14:48 14:48 17:24 WBC RDW Plt Count Lymph % (Auto) [place] % (Auto) Lymph # (Auto) [place] # (Auto) Baso # (Auto) Seg Neutrophils % Seg Neutrophils # PT INR APTT D-Dimer ABG pH POC ABG pO2 ABG Oxyhemoglobin ABG Potassium ABG Chloride ABG Glucose Carboxyhemoglobin Sodium Chloride Carbon Dioxide BUN Creatinine Glucose POC Glucose 338 H Hemoglobin A1c Lactic Acid 4.20 H* Calcium Total Bilirubin AST Alkaline Phosphatase NT-Pro-B Natriuret Pep 2207 H Albumin LDL Cholesterol Direct Arterial Blood Glucose Arterial Blood Ionized Calcium 03/23/21 03/23/21 03/23/21 19:30 19:30 19:30 WBC 12.3 H RDW 16.1 H Plt Count 136 L Lymph % (Auto) 6.6 L [place] % (Auto) Lymph # (Auto) 0.8 L [place] # (Auto) Baso # (Auto) 0.2 H Seg Neutrophils % 88.1 H Seg Neutrophils # 10.9 H PT INR APTT D-Dimer ABG pH POC ABG pO2 ABG Oxyhemoglobin ABG Potassium ABG Chloride ABG Glucose Carboxyhemoglobin Sodium Chloride Carbon Dioxide 19 L BUN 26 H Creatinine 2.2 H Glucose 341 H POC Glucose Hemoglobin A1c Lactic Acid 3.50 H* Calcium 8.0 L Total Bilirubin 1.90 H AST 65 H Alkaline Phosphatase 158 H NT-Pro-B Natriuret Pep Albumin 3.1 L LDL Cholesterol Direct Arterial Blood Glucose Arterial Blood Ionized Calcium 03/23/21 03/24/21 03/24/21 23:21 04:17 04:50 WBC RDW Plt Count Lymph % (Auto) [place] % (Auto) Lymph # (Auto) [place] # (Auto) Baso # (Auto) Seg Neutrophils % Seg Neutrophils # PT INR APTT D-Dimer ABG pH POC ABG pO2 79.7 L ABG Oxyhemoglobin 93.3 L ABG Potassium ABG Chloride 111.0 H ABG Glucose 111 H Carboxyhemoglobin 0.3 L Sodium Chloride Carbon Dioxide BUN Creatinine Glucose POC Glucose 283 H 110 H Hemoglobin A1c Lactic Acid Calcium Total Bilirubin AST Alkaline Phosphatase NT-Pro-B Natriuret Pep Albumin LDL Cholesterol Direct Arterial Blood Glucose 111 H Arterial Blood Ionized Calcium 03/24/21 03/24/21 03/24/21 06:00 06:00 06:00 WBC 11.3 H RDW 16.6 H Plt Count Lymph % (Auto) 7.0 L [place] % (Auto) 8.5 H Lymph # (Auto) 0.8 L [place] # (Auto) 1.0 H Baso # (Auto) Seg Neutrophils % 82.9 H Seg Neutrophils # 9.4 H PT INR APTT D-Dimer ABG pH POC ABG pO2 ABG Oxyhemoglobin ABG Potassium ABG Chloride ABG Glucose Carboxyhemoglobin Sodium Chloride 110.2 H Carbon Dioxide BUN 26 H Creatinine 1.9 H Glucose POC Glucose Hemoglobin A1c 10.3 H Lactic Acid Calcium 8.3 L Total Bilirubin 1.40 H AST 46 H Alkaline Phosphatase 157 H NT-Pro-B Natriuret Pep Albumin 3.3 L LDL Cholesterol Direct 32 L Arterial Blood Glucose Arterial Blood Ionized Calcium 03/24/21 03/24/21 06:00 11:55 WBC RDW Plt Count Lymph % (Auto) [place] % (Auto) Lymph # (Auto) [place] # (Auto) Baso # (Auto) Seg Neutrophils % Seg Neutrophils # PT 46.8 H INR 4.91 H APTT D-Dimer ABG pH POC ABG pO2 ABG Oxyhemoglobin ABG Potassium ABG Chloride ABG Glucose Carboxyhemoglobin Sodium Chloride Carbon Dioxide BUN Creatinine Glucose POC Glucose 59 L Hemoglobin A1c Lactic Acid Calcium Total Bilirubin AST Alkaline Phosphatase NT-Pro-B Natriuret Pep Albumin LDL Cholesterol Direct Arterial Blood Glucose Arterial Blood Ionized Calcium Chest x-ray: image reviewed Allied health notes reviewed: RT
--- NOTE | 2021-03-24 12:56 | Event Note ---
Date: 03/24/21 Pt seen and had reported coughing or vomiting of blood yesterday. She had an NG tube in place then that was reported to show no blood. No further problems, and Hgb stable. No indication of GI bleed. Likely upper airway process. Discussed with Dr. Borges. Consult cancelled. Please call if needed.
--- NOTE | 2021-03-24 13:33 | Electrocardiograph Report ---
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
[2021-03-24] MEDS ORDERED: VANCOMYCIN/NS 1 GM/250 ML 1 GM/250 ML BAG IV SCH (14:00)
--- NOTE | 2021-03-24 15:13 | Cat Scan Report ---
CT LUMBAR SPINE: 03/24/2021 INDICATION / CLINICAL INFORMATION: lumber pain. COMPARISON: None available. FINDINGS: CT images of the lumbar spine were obtained. Images are evaluated in the axial, coronal, and sagittal planes. There is no evidence of acute abnormality. Vertebral body height and alignment is well preserved at all levels. LEVEL BY LEVEL ANALYSIS: L5-S1: Mild diffuse disc bulging and facet degenerative changes. L4-5: Mild diffuse disc bulging and minimal facet degenerative changes. L3-4: Unremarkable. L2-3: Unremarkable. L1-2: Unremarkable. PARASPINAL STRUCTURES: Unremarkable. IMPRESSION: Mild degenerative change at L4-5 and L5-S1. No evidence of stenosis or nerve root compression. No ac joni abnormality. All CT scans at this location are performed using dose reduction to ALARA by means of automated expos ure control. Signer Name: Christian Barnes MD Signed: 03/24/2021 3:09 PM Workstation Name: [id number]
--- NOTE | 2021-03-24 15:20 | Consultation ---
History of Present Illness - Reason for Consult Consult date: 03/24/21 ?sepsis Requesting physician: CM WARD - History of Present Illness The patient is a 65-year-old female with prior CVA, atrial fibrillation on anticoagulation, hypertension, diabetes, indwelling cardiac pacemaker was admitted to the hospital on 03/23/2021 with altered mental status and left facial droop. Upon initial evaluation, she was hypotensive requiring IV fluids. She a lso got hypoxic requiring BiPAP. She was evaluated by cardiology, neurology. Also briefly needed Levophed and mechanical ventilation. ID was consulted to evaluate for sepsis. She is currently agitated, off the ventilator, screaming. She has remained afebrile. Labs with minimal leukocytosis. Review of Systems: Limited due to agitation Past History Past Medical History: atrial fib, heart failure, hypertension, hyperlipidemia, renal failure, stroke Past Surgical History: No surgical history Social history: lives with family Family history: no significant family history Medications and Allergies Allergies Allergy/AdvReac Type Severity Reaction Status Date / Time metformin Allergy Swelling Verified 03/23/21 05:49 Home Medications Medication Instructions Recorded Confirmed Last Taken Type AtorvaSTATin [Lipitor] 40 mg PO QHS 03/23/21 03/23/21 Unknown History Digoxin [Lanoxin] 0.125 mg PO DAILY 03/23/21 03/23/21 Unknown History Doxazosin [Cardura] 2 mg PO QDAY 03/23/21 03/23/21 Unknown History Furosemide [Lasix] 20 mg PO QDAY 03/23/21 03/23/21 Unknown History Insulin Detemir (Nf) [Levemir 45 units SQ QHS 03/23/21 03/23/21 Unknown History Flextouch (Nf)] Insulin Lispro 15 unit SQ TID 03/23/21 03/23/21 Unknown History Losartan Potassium 50 mg PO QDAY 03/23/21 03/23/21 Unknown History NIFEdipine [Nifedipine ER] 60 mg PO QDAY 03/23/21 03/23/21 Unknown History carvediloL [Coreg] 6.25 mg PO BID 03/23/21 03/23/21 Unknown History hydrALAZINE [Apresoline TAB] 100 mg PO TID 03/23/21 03/23/21 Unknown History Active Meds: Active Medications Acetaminophen (Acetaminophen 325 Mg Tab) 650 mg PO Q4H PRN PRN Reason: Pain MILD(1-3)/Fever >100.5/CASTANO Al Hydrox/Mg Hydrox/Simethicone (Alum-Mag Hydroxide-Simethicone [id number]/5ml Oral Liqd 30 Ml) 30 ml PO Q4H PRN PRN Reason: Indigestion Atorvastatin Calcium (Atorvastatin 40 Mg Tab) 80 mg PO QHS MANOLO Last Admin: 03/23/21 21:34 Dose: Not Given Documented by: Dextrose (Dextrose 50% In Water (25gm) 50 Ml Syringe) 50 ml IV Q30MIN PRN; Protocol PRN Reason: Hypoglycemia Last Admin: 03/24/21 01:51 Dose: 50 ml Documented by: Digoxin (Digoxin 0.125 Mg Tab) 0.125 mg PO Q48H MANOLO Hydrophilic Ointment (Lip Therapy Vaseline) 1 applic TP Q2HR PRN PRN Reason: Dry Lips Sodium Chloride (Nacl 0.9% 1000 Ml) 1,000 mls @ 42 mls/hr IV DIRECT MANOLO Norepinephrine (Levophed Drip 4 Mg/Ns 250 Ml) 4 mg in 250 mls @ 7.5 mls/hr IV TITR MANOLO; Protocol Last Titration: 03/24/21 10:21 Dose: 1 mcg/min, 3.75 mls/hr Documented by: Vasopressin 20 unit/ Sodium (Chloride) 101 mls @ 9.09 mls/hr IV TITR MANOLO; Protocol Vancomycin HCl (Vancomycin/Ns 1 Gm/250 Ml) 1 gm in 250 mls @ 167.007 mls/hr IV Q24H MANOLO Last Admin: 03/24/21 15:12 Dose: 167.007 mls/hr Documented by: Ceftriaxone Sodium (Rocephin/Ns 1 Gm/50 Ml) 1 gm in 50 mls @ 100 mls/hr IV Q24HR MANOLO; Protocol Insulin Glargine (Insulin Glargine 100 Units/Ml) 30 units SUB-Q QHS MANOLO Last Admin: 03/23/21 21:36 Dose: 30 units Documented by: Insulin Human Lispro (Insulin Lispro 100 Unit/Ml) 0 unit SUB-Q Q6HR MANOLO; Protocol Last Admin: 03/24/21 14:59 Dose: Not Given Documented by: Magnesium Hydroxide (Magnesium Hydroxide (Mom) Oral Liqd Udc) 30 ml PO Q4H PRN PRN Reason: Constipation Multi-Ingred Cream/Lotion/Oil/Oint (Mineral Oil/Petrolatum, White Ophth Oint 3.5 Gm) 1 applic OU Q4HR PRN PRN Reason: Dry Eye(s) Ondansetron HCl (Ondansetron 4 Mg/2 Ml Inj) 4 mg IV Q8H PRN PRN Reason: Nausea And Vomiting Pantoprazole Sodium (Pantoprazole 40 Mg Tab) 40 mg PO QDAC MANOLO Senna (Sennosides 8.6 Mg Tab) 8.6 mg PO Q12HR PRN PRN Reason: Constipation Sodium Chloride (Sodium Chloride 0.9% 10 Ml Flush Syringe) 10 ml IV BID MANOLO Last Admin: 03/24/21 09:14 Dose: 10 ml Documented by: Sodium Chloride (Sodium Chloride 0.9% 10 Ml Flush Syringe) 10 ml IV PRN PRN PRN Reason: LINE FLUSH Tramadol HCl (Tramadol 50 Mg Tab) 50 mg PO Q4H PRN PRN Reason: Pain, Moderate (4-6) Physical Examination - Physical Exam Narrative exam: Physical Exam: Constitutional: Awake, agitated and screaming Head, Ears, Nose: Normocephalic, atraumatic. External ears, nose normal Eyes: Conjunctivae/corneas clear. No icterus. No ptosis. Neck: Supple, no meningeal signs Oral: Limited Cardiovascular: S1, S2 normal. Respiratory: Good air entry, clear to auscultation bilaterally GI: Soft, non-tender; bowel sounds normal. No peritoneal signs Musculoskeletal: No pedal edema, no cyanosis. Skin: No rash or abscess Hem/Lymphatic: No palpable cervical or supraclavicular nodes. No lymphangitis Psych: Agitated Neurological: Awake, agitated, screaming - Constitutional Vitals: Vital Signs Temp Pulse Resp BP Pulse Ox 96.1 F L 80 13 127/86 95 03/24/21 08:00 03/24/21 11:10 03/24/21 11:10 03/24/21 11:10 03/24/21 11:10 Temperature -Last 24 Hours Temperature 96.1 F Temperature 97.8 F Temperature 98.8 F Temperature 98.4 F Temperature 97.8 F Results - Labs CBC & Chem 7: 03/24/21 06:00 03/24/21 06:00 Labs: Abnormal lab results 03/23/21 03/23/21 03/23/21 Range/Units 14:30 14:48 14:48 WBC (4.5-11.0) K/mm3 RDW (13.2-15.2) % Plt Count (140-440) K/mm3 Lymph % (Auto) (13.4-35.0) % Johnson % (Auto) (0.0-7.3) % Lymph # (Auto) (1.2-5.4) K/mm3 Johnson # (Auto) (0.0-0.8) K/mm3 Baso # (Auto) (0.0-0.1) K/mm3 Seg Neutrophils % (40.0-70.0) % Seg Neutrophils # (1.8-7.7) K/mm3 PT (12.2-14.9) Sec. INR 6.71 H* (0.87-1.13) D-Dimer 1850.11 H (0-234) ng/mlDDU POC ABG pO2 (83-108) mmHg ABG Oxyhemoglobin (94-98) ABG Chloride (98-107) mmol/L ABG Glucose (65-95) mg/dL Carboxyhemoglobin (0.5-1.5) Sodium 136 L (137-145) mmol/L Chloride (98-107) mmol/L Carbon Dioxide 17 L (22-30) mmol/L BUN 26 H (7-17) mg/dL Creatinine 2.3 H (0.6-1.2) mg/dL Glucose 383 H (65-100) mg/dL POC Glucose (70-105) mg/dL Hemoglobin A1c (4-6) % Lactic Acid 4.20 H* (0.7-2.0) mmol/L Calcium (8.4-10.2) mg/dL Total Bilirubin 2.20 H (0.1-1.2) mg/dL AST 76 H (5-40) units/L Alkaline Phosphatase 166 H (35-129) units/L NT-Pro-B Natriuret Pep (0-900) pg/mL Albumin 3.4 L (3.9-5) g/dL LDL Cholesterol Direct (50-130) mg/dL Arterial Blood Glucose (65-95) mg/dL 03/23/21 03/23/21 03/23/21 Range/Units 14:48 17:24 19:30 WBC 12.3 H (4.5-11.0) K/mm3 RDW 16.1 H (13.2-15.2) % Plt Count 136 L (140-440) K/mm3 Lymph % (Auto) 6.6 L (13.4-35.0) % Johnson % (Auto) (0.0-7.3) % Lymph # (Auto) 0.8 L (1.2-5.4) K/mm3 Johnson # (Auto) (0.0-0.8) K/mm3 Baso # (Auto) 0.2 H (0.0-0.1) K/mm3 Seg Neutrophils % 88.1 H (40.0-70.0) % Seg Neutrophils # 10.9 H (1.8-7.7) K/mm3 PT (12.2-14.9) Sec. INR (0.87-1.13) D-Dimer (0-234) ng/mlDDU POC ABG pO2 (83-108) mmHg ABG Oxyhemoglobin (94-98) ABG Chloride (98-107) mmol/L ABG Glucose (65-95) mg/dL Carboxyhemoglobin (0.5-1.5) Sodium (137-145) mmol/L Chloride (98-107) mmol/L Carbon Dioxide (22-30) mmol/L BUN (7-17) mg/dL Creatinine (0.6-1.2) mg/dL Glucose (65-100) mg/dL POC Glucose 338 H (70-105) mg/dL Hemoglobin A1c (4-6) % Lactic Acid (0.7-2.0) mmol/L Calcium (8.4-10.2) mg/dL Total Bilirubin (0.1-1.2) mg/dL AST (5-40) units/L Alkaline Phosphatase (35-129) units/L NT-Pro-B Natriuret Pep 2207 H (0-900) pg/mL Albumin (3.9-5) g/dL LDL Cholesterol Direct (50-130) mg/dL Arterial Blood Glucose (65-95) mg/dL 03/23/21 03/23/21 03/23/21 Range/Units 19:30 19:30 23:21 WBC (4.5-11.0) K/mm3 RDW (13.2-15.2) % Plt Count (140-440) K/mm3 Lymph % (Auto) (13.4-35.0) % Johnson % (Auto) (0.0-7.3) % Lymph # (Auto) (1.2-5.4) K/mm3 Johnson # (Auto) (0.0-0.8) K/mm3 Baso # (Auto) (0.0-0.1) K/mm3 Seg Neutrophils % (40.0-70.0) % Seg Neutrophils # (1.8-7.7) K/mm3 PT (12.2-14.9) Sec. INR (0.87-1.13) D-Dimer (0-234) ng/mlDDU POC ABG pO2 (83-108) mmHg ABG Oxyhemoglobin (94-98) ABG Chloride (98-107) mmol/L ABG Glucose (65-95) mg/dL Carboxyhemoglobin (0.5-1.5) Sodium (137-145) mmol/L Chloride (98-107) mmol/L Carbon Dioxide 19 L (22-30) mmol/L BUN 26 H (7-17) mg/dL Creatinine 2.2 H (0.6-1.2) mg/dL Glucose 341 H (65-100) mg/dL POC Glucose 283 H (70-105) mg/dL Hemoglobin A1c (4-6) % Lactic Acid 3.50 H* (0.7-2.0) mmol/L Calcium 8.0 L (8.4-10.2) mg/dL Total Bilirubin 1.90 H (0.1-1.2) mg/dL AST 65 H (5-40) units/L Alkaline Phosphatase 158 H (35-129) units/L NT-Pro-B Natriuret Pep (0-900) pg/mL Albumin 3.1 L (3.9-5) g/dL LDL Cholesterol Direct (50-130) mg/dL Arterial Blood Glucose (65-95) mg/dL 03/24/21 03/24/21 03/24/21 Range/Units 04:17 04:50 06:00 WBC 11.3 H (4.5-11.0) K/mm3 RDW 16.6 H (13.2-15.2) % Plt Count (140-440) K/mm3 Lymph % (Auto) 7.0 L (13.4-35.0) % Johnson % (Auto) 8.5 H (0.0-7.3) % Lymph # (Auto) 0.8 L (1.2-5.4) K/mm3 Johnson # (Auto) 1.0 H (0.0-0.8) K/mm3 Baso # (Auto) (0.0-0.1) K/mm3 Seg Neutrophils % 82.9 H (40.0-70.0) % Seg Neutrophils # 9.4 H (1.8-7.7) K/mm3 PT (12.2-14.9) Sec. INR (0.87-1.13) D-Dimer (0-234) ng/mlDDU POC ABG pO2 79.7 L (83-108) mmHg ABG Oxyhemoglobin 93.3 L (94-98) ABG Chloride 111.0 H (98-107) mmol/L ABG Glucose 111 H (65-95) mg/dL Carboxyhemoglobin 0.3 L (0.5-1.5) Sodium (137-145) mmol/L Chloride (98-107) mmol/L Carbon Dioxide (22-30) mmol/L BUN (7-17) mg/dL Creatinine (0.6-1.2) mg/dL Glucose (65-100) mg/dL POC Glucose 110 H (70-105) mg/dL Hemoglobin A1c (4-6) % Lactic Acid (0.7-2.0) mmol/L Calcium (8.4-10.2) mg/dL Total Bilirubin (0.1-1.2) mg/dL AST (5-40) units/L Alkaline Phosphatase (35-129) units/L NT-Pro-B Natriuret Pep (0-900) pg/mL Albumin (3.9-5) g/dL LDL Cholesterol Direct (50-130) mg/dL Arterial Blood Glucose 111 H (65-95) mg/dL 03/24/21 03/24/21 03/24/21 Range/Units 06:00 06:00 06:00 WBC (4.5-11.0) K/mm3 RDW (13.2-15.2) % Plt Count (140-440) K/mm3 Lymph % (Auto) (13.4-35.0) % Johnson % (Auto) (0.0-7.3) % Lymph # (Auto) (1.2-5.4) K/mm3 Johnson # (Auto) (0.0-0.8) K/mm3 Baso # (Auto) (0.0-0.1) K/mm3 Seg Neutrophils % (40.0-70.0) % Seg Neutrophils # (1.8-7.7) K/mm3 PT 46.8 H (12.2-14.9) Sec. INR 4.91 H (0.87-1.13) D-Dimer (0-234) ng/mlDDU POC ABG pO2 (83-108) mmHg ABG Oxyhemoglobin (94-98) ABG Chloride (98-107) mmol/L ABG Glucose (65-95) mg/dL Carboxyhemoglobin (0.5-1.5) Sodium (137-145) mmol/L Chloride 110.2 H (98-107) mmol/L Carbon Dioxide (22-30) mmol/L BUN 26 H (7-17) mg/dL Creatinine 1.9 H (0.6-1.2) mg/dL Glucose (65-100) mg/dL POC Glucose (70-105) mg/dL Hemoglobin A1c 10.3 H (4-6) % Lactic Acid (0.7-2.0) mmol/L Calcium 8.3 L (8.4-10.2) mg/dL Total Bilirubin 1.40 H (0.1-1.2) mg/dL AST 46 H (5-40) units/L Alkaline Phosphatase 157 H (35-129) units/L NT-Pro-B Natriuret Pep (0-900) pg/mL Albumin 3.3 L (3.9-5) g/dL LDL Cholesterol Direct 32 L (50-130) mg/dL Arterial Blood Glucose (65-95) mg/dL 03/24/21 03/24/21 03/24/21 Range/Units 11:55 12:19 12:44 WBC (4.5-11.0) K/mm3 RDW (13.2-15.2) % Plt Count (140-440) K/mm3 Lymph % (Auto) (13.4-35.0) % Johnson % (Auto) (0.0-7.3) % Lymph # (Auto) (1.2-5.4) K/mm3 Johnson # (Auto) (0.0-0.8) K/mm3 Baso # (Auto) (0.0-0.1) K/mm3 Seg Neutrophils % (40.0-70.0) % Seg Neutrophils # (1.8-7.7) K/mm3 PT (12.2-14.9) Sec. INR (0.87-1.13) D-Dimer (0-234) ng/mlDDU POC ABG pO2 (83-108) mmHg ABG Oxyhemoglobin (94-98) ABG Chloride (98-107) mmol/L ABG Glucose (65-95) mg/dL Carboxyhemoglobin (0.5-1.5) Sodium (137-145) mmol/L Chloride (98-107) mmol/L Carbon Dioxide (22-30) mmol/L BUN (7-17) mg/dL Creatinine (0.6-1.2) mg/dL Glucose (65-100) mg/dL POC Glucose 59 L 170 H 140 H (70-105) mg/dL Hemoglobin A1c (4-6) % Lactic Acid (0.7-2.0) mmol/L Calcium (8.4-10.2) mg/dL Total Bilirubin (0.1-1.2) mg/dL AST (5-40) units/L Alkaline Phosphatase (35-129) units/L NT-Pro-B Natriuret Pep (0-900) pg/mL Albumin (3.9-5) g/dL LDL Cholesterol Direct (50-130) mg/dL Arterial Blood Glucose (65-95) mg/dL - Imaging and Cardiology Chest x-ray: report reviewed, image reviewed (congestion, cardiomegaly, no pneumonia as such) Assessment and Plan Cultures: 03/23/2021 blood culture: In process A/P: 65-year-old female with prior CVA, atrial fibrillation on anticoagulation, hypertension, diabetes, indwelling cardiac pacemaker, TAVR was admitted to the hospital on 03/23/2021 with altered mental status and left facial droop: #Shock: Unlikely to be sepsis, no clear source identified. Patient was hypothermic and hypotensive on admission. Has significant valvular heart disease. Does have indwelling cardiac device. Rule out bacteremia. UA not impressive for UTI, chest x-ray also not impressive for pneumonia. #Acute respiratory failure: Seems to be improving. #CLAYTON on CKD: renally dose abx. #Supratherapeutic INR Recs: -Cefepime stopped switched to Ceftriaxone -IV vancomycin for now, renally dosed -Plan to discontinue antibiotics blood cultures remain negative at 48 hours Ludwig Portillo MD, FACP [facility] O: [phone] F: [phone]
[2021-03-24] MEDS ORDERED: cefTRIAXone/NS 1 GM/50 ML 1 GM/50 ML BAG IV SCH (16:00)
[2021-03-24] MEDS ORDERED: HALOPERIDOL LACTATE 5 MG/1 ML INJ IV ONE (16:00)
[2021-03-24] MEDS: INSULIN GLARGINE 100 UNITS/ML SUB-Q SCH (21:46)
[2021-03-24] MEDS ORDERED: CEFEPIME/NS 2 GM/100 ML 2 GM/100 ML BAG IV SCH (22:00)
[2021-03-25] MEDS: DEXTROSE 50% IN WATER (25GM) 50 ML SYRINGE IV PRN ×3 (00:31→11:33)
[2021-03-25] MEDS ORDERED: METOPROLOL TARTRATE 5 MG/5 ML INJ IV ONE ×2 (02:47→10:00)
[2021-03-25 05:10] LABS: Calcium 8.8 mg/dL (8.4-10.2)
[2021-03-25 06:09] LABS: Creatinine,Urine 37.7 mg/dL (0.1-20.0)
[2021-03-25 06:12] LABS: INR 5.4 (0.87-1.13)
[2021-03-25] MEDS: INSULIN LISPRO 100 UNIT/ML SUB-Q SCH ×3 (06:27→17:32)
[2021-03-25] MEDS ORDERED: PANTOPRAZOLE 40 MG TAB PO SCH (07:30)
--- NOTE | 2021-03-25 08:50 | Progress Note ---
Assessment and Plan 1. Acute kidney injury: Vasomotor CLAYTON in the setting of septic shock. ATN likely. Renal US ordered. Monitor renal function. Non-oliguric. Creatinine level improving. Avoid nephrotoxic agents. Meds dosage based on GFR. 2. FEN: Anion-gap metabolic acidosis, improved. Monitor lytes and volume status. 3. Acute hypoxemic respiratory failure: CXR showed pulmonary congestion / edema. Covid test negative. On BIPAP, wean as tolerated. Diuretics as tolerated. 4. Suspected CVA: CT head negative. Followed by Neuro. 5. Acute encephalopathy: CT head negative. Followed by Neuro. 6. Septic shock, POA: Off pressors. Abx. Follow cultures. 7. A.fib: Rate controlled. Supra-therapeuric INR. Monitor. 8. Coagulopathy: Monitor INR. 9. DM type 2. Subjective: Patient was seen and examined at the bedside. RN at the bedside. Examination: General appearance: well-developed, appears stated age, combative, on BIPAP HEENT: JULIETTE, atraumatic Neck: trachea midline Respiratory: rales heard Heart: S1S2, no murmur Abdomen: soft, bowel sounds heard, NT Integumentary: no obvious rash Neurologic: lethargic, non-verbal, not following any command Ext: no edema noted Subjective Date of service: 03/25/21 Objective - Vital Signs Vital signs: Vital Signs - 12hr 03/24/21 03/24/21 03/24/21 20:51 21:00 21:11 Temperature Pulse Rate 80 80 80 Respiratory 14 19 20 Rate Blood Pressure 144/100 149/105 149/105 O2 Sat by Pulse 94 95 82 L Oximetry 03/24/21 03/24/21 03/24/21 21:21 21:30 21:41 Temperature Pulse Rate 80 80 80 Respiratory 17 13 15 Rate Blood Pressure 134/92 142/99 142/99 O2 Sat by Pulse 95 96 100 Oximetry 03/24/21 03/24/21 03/24/21 21:51 22:00 22:11 Temperature Pulse Rate 80 80 80 Respiratory 17 14 16 Rate Blood Pressure 146/109 151/106 151/106 O2 Sat by Pulse 100 100 100 Oximetry 03/24/21 03/24/21 03/24/21 22:21 22:30 22:41 Temperature Pulse Rate 80 80 80 Respiratory 21 19 18 Rate Blood Pressure 152/108 151/108 151/108 O2 Sat by Pulse 100 98 99 Oximetry 03/24/21 03/24/21 03/24/21 22:51 23:00 23:11 Temperature Pulse Rate 80 80 80 Respiratory 17 18 18 Rate Blood Pressure 145/107 146/109 146/109 O2 Sat by Pulse 99 99 98 Oximetry 03/24/21 03/24/21 03/24/21 23:13 23:15 23:19 Temperature 98.8 F Pulse Rate 80 Respiratory 20 Rate Blood Pressure 150/102 O2 Sat by Pulse 95 96 Oximetry 03/24/21 03/24/21 03/24/21 23:21 23:30 23:41 Temperature Pulse Rate 80 80 80 Respiratory 19 12 15 Rate Blood Pressure 150/102 153/100 153/100 O2 Sat by Pulse 97 97 96 Oximetry 03/24/21 03/24/21 03/25/21 23:51 23:52 00:00 Temperature Pulse Rate 80 80 80 Respiratory 11 L 21 11 L Rate Blood Pressure 146/103 146/103 151/111 O2 Sat by Pulse 96 96 96 Oximetry 03/25/21 03/25/21 03/25/21 00:11 00:21 00:30 Temperature Pulse Rate 80 80 80 Respiratory 11 L 11 L 12 Rate Blood Pressure 151/111 154/107 153/112 O2 Sat by Pulse 97 98 96 Oximetry 03/25/21 03/25/21 03/25/21 00:41 00:51 01:00 Temperature Pulse Rate 80 80 80 Respiratory 13 21 20 Rate Blood Pressure 153/112 153/112 152/108 O2 Sat by Pulse 99 98 99 Oximetry 03/25/21 03/25/21 03/25/21 01:03 01:11 01:21 Temperature Pulse Rate 80 80 Respiratory 15 20 19 Rate Blood Pressure 152/108 142/92 O2 Sat by Pulse 95 100 99 Oximetry 03/25/21 03/25/21 03/25/21 01:30 01:41 01:51 Temperature Pulse Rate 80 80 80 Respiratory 14 19 17 Rate Blood Pressure 162/113 162/113 164/115 O2 Sat by Pulse 99 100 99 Oximetry 03/25/21 03/25/21 03/25/21 02:00 02:11 02:21 Temperature Pulse Rate 80 80 80 Respiratory 18 21 14 Rate Blood Pressure 166/115 166/115 160/110 O2 Sat by Pulse 99 99 99 Oximetry 03/25/21 03/25/21 03/25/21 02:31 02:41 02:42 Temperature Pulse Rate 80 80 80 Respiratory 19 20 Rate Blood Pressure 122/85 168/117 168/117 O2 Sat by Pulse 95 Oximetry 03/25/21 03/25/21 03/25/21 02:51 03:00 03:07 Temperature 98.4 F Pulse Rate 80 80 Respiratory 15 17 Rate Blood Pressure 151/106 152/113 O2 Sat by Pulse 95 94 Oximetry 03/25/21 03/25/21 03/25/21 03:11 03:21 03:30 Temperature Pulse Rate 80 80 80 Respiratory 11 L 15 21 Rate Blood Pressure 152/113 148/113 150/116 O2 Sat by Pulse 96 96 97 Oximetry 03/25/21 03/25/21 03/25/21 03:41 03:51 04:00 Temperature Pulse Rate 80 80 80 Respiratory 22 19 20 Rate Blood Pressure 150/116 155/112 161/119 O2 Sat by Pulse 98 98 98 Oximetry 03/25/21 03/25/21 03/25/21 04:11 04:21 04:30 Temperature Pulse Rate 80 80 80 Respiratory 16 18 15 Rate Blood Pressure 161/119 171/121 160/117 O2 Sat by Pulse 98 98 Oximetry 03/25/21 03/25/21 03/25/21 04:41 04:51 05:00 Temperature Pulse Rate 80 80 80 Respiratory 19 15 24 Rate Blood Pressure 160/117 165/116 149/112 O2 Sat by Pulse 98 97 97 Oximetry 03/25/21 03/25/21 03/25/21 05:11 05:21 05:30 Temperature Pulse Rate 80 80 80 Respiratory 21 16 18 Rate Blood Pressure 149/112 160/115 165/117 O2 Sat by Pulse 96 98 97 Oximetry 03/25/21 03/25/21 03/25/21 05:41 05:51 06:00 Temperature Pulse Rate 84 80 80 Respiratory 15 18 17 Rate Blood Pressure 165/117 147/104 159/120 O2 Sat by Pulse 75 L 100 99 Oximetry 03/25/21 03/25/21 03/25/21 06:11 07:40 08:16 Temperature Pulse Rate 80 84 Respiratory 19 18 Rate Blood Pressure 159/120 159/120 O2 Sat by Pulse 99 99 100 Oximetry - Lab 03/24/21 06:00 03/25/21 03:50 Most recent lab results ABG pH 7.338 (7.320-7.450) 03/24/21 04:17 ABG O2 Saturation 93.9 (0-100) 03/24/21 04:17 Calcium 8.8 mg/dL (8.4-10.2) 03/25/21 03:50 Phosphorus 3.70 mg/dL (2.5-4.5) 03/23/21 14:30 Magnesium 1.90 mg/dL (1.7-2.3) 03/23/21 14:30 Urine Creatinine 37.7 mg/dL (0.1-20.0) H 03/25/21 03:50 Urine Sodium 98 mmol/L 03/25/21 03:50 Medications & Allergies - Medications Allergies/Adverse Reactions: Allergies metformin Allergy (Verified 03/23/21 05:49) Swelling Home Medications: Home Medications Medication Instructions Recorded Confirmed Last Taken Type AtorvaSTATin [Lipitor] 40 mg PO QHS 03/23/21 03/23/21 Unknown History Digoxin [Lanoxin] 0.125 mg PO DAILY 03/23/21 03/23/21 Unknown History Doxazosin [Cardura] 2 mg PO QDAY 03/23/21 03/23/21 Unknown History Furosemide [Lasix] 20 mg PO QDAY 03/23/21 03/23/21 Unknown History Insulin Detemir (Nf) [Levemir 45 units SQ QHS 03/23/21 03/23/21 Unknown History Flextouch (Nf)] Insulin Lispro 15 unit SQ TID 03/23/21 03/23/21 Unknown History Losartan Potassium 50 mg PO QDAY 03/23/21 03/23/21 Unknown History NIFEdipine [Nifedipine ER] 60 mg PO QDAY 03/23/21 03/23/21 Unknown History carvediloL [Coreg] 6.25 mg PO BID 03/23/21 03/23/21 Unknown History hydrALAZINE [Apresoline TAB] 100 mg PO TID 03/23/21 03/23/21 Unknown History Active Medications: Generic Name Dose Route Start Last Admin Trade Name Freq PRN Reason Stop Dose Admin Acetaminophen 650 mg 03/23/21 05:47 Acetaminophen 325 Mg Tab PO Q4H PRN Pain MILD(1-3)/Fever >100.5/CASTANO Al Hydrox/Mg Hydrox/Simethicone 30 ml 03/23/21 05:47 Alum-Mag Hydroxide-Simethicone 661-109-82ha/5ml Oral Liqd 30 Ml PO Q4H PRN Indigestion Atorvastatin Calcium 80 mg 03/23/21 22:00 03/24/21 21:23 Atorvastatin 40 Mg Tab PO Not Given QHS MANOLO Dextrose 50 ml 03/23/21 17:33 03/25/21 07:29 Dextrose 50% In Water (25gm) 50 Ml Syringe IV 50 ml Q30MIN PRN Administration Hypoglycemia Protocol Digoxin 0.125 mg 03/25/21 17:00 Digoxin 0.125 Mg Tab PO Q48H MANOLO Hydrophilic Ointment 1 applic 03/23/21 11:46 Lip Therapy Vaseline TP Q2HR PRN Dry Lips Sodium Chloride 1,000 mls @ 42 mls/hr 03/23/21 06:00 Nacl 0.9% 1000 Ml IV DIRECT MANOLO Vancomycin HCl 1 gm in 250 mls @ 167.007 mls/hr 03/24/21 14:00 03/24/21 15:12 Vancomycin/Ns 1 Gm/250 Ml IV 167.007 mls/hr Q24H MAONLO Administration Ceftriaxone Sodium 1 gm in 50 mls @ 100 mls/hr 03/24/21 16:00 03/24/21 16:44 Rocephin/Ns 1 Gm/50 Ml IV 100 mls/hr Q24H MANOLO Administration Protocol Dexmedetomidine HCl 400 mcg/ 104 mls @ 2.807 mls/hr 03/24/21 17:00 03/25/21 02:47 Sodium Chloride IV 0.7 mcg/kg/hr TITRATE MANOLO 9.824 mls/hr Administration Protocol 0.2 MCG/KG/HR Insulin Glargine 30 units 03/23/21 22:00 03/24/21 21:46 Insulin Glargine 100 Units/Ml SUB-Q Not Given QHS [facility] Insulin Human Lispro 0 unit 03/23/21 18:00 03/25/21 06:27 Insulin Lispro 100 Unit/Ml SUB-Q Not Given Q6HR [facility] Protocol Magnesium Hydroxide 30 ml 03/23/21 05:47 Magnesium Hydroxide (Mom) Oral Liqd Udc PO Q4H PRN Constipation Multi-Ingred Cream/Lotion/Oil/Oint 1 applic 03/23/21 11:46 Mineral Oil/Petrolatum, White Ophth Oint 3.5 Gm OU Q4HR PRN Dry Eye(s) Ondansetron HCl 4 mg 03/23/21 05:47 Ondansetron 4 Mg/2 Ml Inj IV Q8H PRN Nausea And Vomiting Pantoprazole Sodium 40 mg 03/25/21 07:30 Pantoprazole 40 Mg Tab PO QDAC MANOLO Senna 8.6 mg 03/23/21 05:47 Sennosides 8.6 Mg Tab PO Q12HR PRN Constipation Sodium Chloride 10 ml 03/23/21 10:00 03/24/21 21:25 Sodium Chloride 0.9% 10 Ml Flush Syringe IV 10 ml BID MANOLO Administration Sodium Chloride 10 ml 03/23/21 05:47 03/24/21 23:15 Sodium Chloride 0.9% 10 Ml Flush Syringe IV 10 ml PRN PRN Administration LINE FLUSH Tramadol HCl 50 mg 03/23/21 06:31 Tramadol 50 Mg Tab PO Q4H PRN Pain, Moderate (4-6)
[2021-03-25] MEDS ORDERED: LIPASE 10,500/PROTEASE 25,000/AMYLASE 43,750 (UNITS) DR CAP FEEDTUBE PRN (09:10)
[2021-03-25] MEDS ORDERED: SODIUM BICARBONATE 325 MG TAB FEEDTUBE PRN (09:10)
[2021-03-25] MEDS ORDERED: SIMPLE SYRUP 15 ML FEEDTUBE PRN ×2 (09:10)
--- NOTE | 2021-03-25 09:18 | Progress Note ---
Assessment and Plan Assessment and plan: 65F with prior R MCA stroke, atiral fibrillation on coumadin, HTN, DM presents with left facial droop and slurred speech, AMS. Symptoms started at 0100 the morning prior to admission.. Initially hypotensive to 80/60. Saturating 90% on room air. Blood sugar 373. Complaining of significant pain in her back and saying she can't breathe. ED Work Up-WBC 4.7, hemoglobin 12.3, PLT 132, Troponin 0.010, CT of the head-No acute finding process Patient seen at bedside, patients at bedside. patient with left facial droop and slurred speech. patient has hx of CVA, HTN, DM and atiral fibrillation on coumadin. Patient was admitted with diagnosis of septic shock, acute hypoxic respiratory failure and CVA. Acute hypoxemic respiratory failure. Septic shock Acute CVA Coagulopathy Diabetes mellitus type 2 03/24. Continue IV antibiotics. Consult ID for further evaluation. Cont. pressors to maintain MAP > 65. Echocardiogram revealed EF of 55% with mild concentric left ventricular hypertrophy. Neurology consultation. 03/25. Continue ceftriaxone and IV vancomycin per ID recommendations. Di scontinue antibiotics if blood cultures remain negative x48 hours. Creatinine improved to 1.6. Nephrology following. Follow-up renal ultrasound. Follow-up carotid ultrasound and consider repeat CT brain per neurology. PT/OT/ST. Continue Lipitor and aspirin. Tight glycemic control. History Interval history: No new issues Hospitalist Physical - Constitutional Vitals: Temp Pulse Resp BP Pulse Ox 98.4 F 84 18 159/120 100 03/25/21 03:07 03/25/21 07:40 03/25/21 07:40 03/25/21 07:40 03/25/21 08:16 General appearance: Present: other (in Bipap) - EENT Eyes: Present: PERRL, EOM intact ENT: hearing intact, clear oral mucosa, dentition normal - Neck Neck: Present: supple, normal ROM - Respiratory Respiratory effort: normal Respiratory: bilateral: CTA - Cardiovascular Rhythm: regular Heart Sounds: Present: S1 & S2. Absent: gallop, rub - Extremities Extremities: no ischemia, No edema, Full ROM - Abdominal General gastrointestinal: soft, non-tender, non-distended, normal bowel sounds - Integumentary Integumentary: Present: clear, warm, dry - Neurologic Neurologic: CNII-XII intact, moves all extremities HEART Score - HEART Score Troponin: Troponin T 0.017 ng/mL (0.00-0.029) 03/23/21 14:48 Results - Labs CBC & Chem 7: 03/24/21 06:00 03/25/21 03:50 Labs: Laboratory Last Values WBC 11.3 K/mm3 (4.5-11.0) H 03/24/21 06:00 RBC 4.21 M/mm3 (3.65-5.03) 03/24/21 06:00 Hgb 12.5 gm/dl (10.1-14.3) 03/24/21 06:00 Hct 36.8 % (30.3-42.9) 03/24/21 06:00 MCV 87 fl (79-97) 03/24/21 06:00 MCH 30 pg (28-32) 03/24/21 06:00 MCHC 34 % (30-34) 03/24/21 06:00 RDW 16.6 % (13.2-15.2) H 03/24/21 06:00 Plt Count 145 K/mm3 (140-440) 03/24/21 06:00 Lymph % (Auto) 7.0 % (13.4-35.0) L 03/24/21 06:00 [place] % (Auto) 8.5 % (0.0-7.3) H 03/24/21 06:00 Eos % (Auto) 1.0 % (0.0-4.3) 03/24/21 06:00 Baso % (Auto) 0.6 % (0.0-1.8) 03/24/21 06:00 Lymph # (Auto) 0.8 K/mm3 (1.2-5.4) L 03/24/21 06:00 [place] # (Auto) 1.0 K/mm3 (0.0-0.8) H 03/24/21 06:00 Eos # (Auto) 0.1 K/mm3 (0.0-0.4) 03/24/21 06:00 Baso # (Auto) 0.1 K/mm3 (0.0-0.1) 03/24/21 06:00 Seg Neutrophils % 82.9 % (40.0-70.0) H 03/24/21 06:00 Seg Neutrophils # 9.4 K/mm3 (1.8-7.7) H 03/24/21 06:00 PT 50.5 Sec. (12.2-14.9) H 03/25/21 03:50 INR 5.40 (0.87-1.13) H* 03/25/21 03:50 APTT 40.0 Sec. (24.2-36.6) H 03/23/21 05:06 Thrombin Time 18.0 Sec. (15.1-19.6) 03/23/21 05:06 D-Dimer 1850.11 ng/mlDDU (0-234) H 03/23/21 14:48 ABG pH 7.338 (7.320-7.450) 03/24/21 04:17 POC ABG pCO2 36.6 mmHg (32.0-48.0) 03/24/21 04:17 POC ABG pO2 79.7 mmHg (83-108) L 03/24/21 04:17 POC ABG HCO3 19.2 03/24/21 04:17 ABG O2 Saturation 93.9 (0-100) 03/24/21 04:17 POC ABG Base Excess -5.9 03/24/21 04:17 ABG Hemoglobin 12.7 (12.0-17.5) 03/24/21 04:17 ABG Oxyhemoglobin 93.3 (94-98) L 03/24/21 04:17 ABG Methemoglobin 0.3 (0.0-1.5) 03/24/21 04:17 ABG Sodium 139.7 mmol/L (136.0-145.0) 03/24/21 04:17 ABG Potassium 3.7 mmol/L (3.40-4.50) 03/24/21 04:17 ABG Chloride 111.0 mmol/L (98-107) H 03/24/21 04:17 ABG Glucose 111 mg/dL (65-95) H 03/24/21 04:17 Carboxyhemoglobin 0.3 (0.5-1.5) L 03/24/21 04:17 FiO2 % 70 03/24/21 04:17 Sodium 142 mmol/L (137-145) 03/25/21 03:50 Potassium 3.6 mmol/L (3.6-5.0) 03/25/21 03:50 Chloride 110.9 mmol/L (98-107) H 03/25/21 03:50 Carbon Dioxide 25 mmol/L (22-30) 03/25/21 03:50 Anion Gap 10 mmol/L 03/25/21 03:50 BUN 23 mg/dL (7-17) H 03/25/21 03:50 Creatinine 1.6 mg/dL (0.6-1.2) H 03/25/21 03:50 Estimated GFR 39 ml/min 03/25/21 03:50 BUN/Creatinine Ratio 14 % 03/25/21 03:50 Glucose 71 mg/dL (65-100) 03/25/21 03:50 POC Glucose 66 mg/dL (70-105) L 03/25/21 00:22 Hemoglobin A1c 10.3 % (4-6) H 03/24/21 06:00 Lactic Acid 3.50 mmol/L (0.7-2.0) H* 03/23/21 19:30 Calcium 8.8 mg/dL (8.4-10.2) 03/25/21 03:50 Phosphorus 3.70 mg/dL (2.5-4.5) 03/23/21 14:30 Magnesium 1.90 mg/dL (1.7-2.3) 03/23/21 14:30 Total Bilirubin 1.40 mg/dL (0.1-1.2) H 03/24/21 06:00 AST 46 units/L (5-40) H 03/24/21 06:00 ALT 39 units/L (7-56) 03/24/21 06:00 Alkaline Phosphatase 157 units/L (35-129) H 03/24/21 06:00 Total Creatine Kinase 105 units/L (30-135) 03/23/21 05:06 CK-MB (CK-2) 1.7 ng/mL (0.0-4.0) 03/23/21 05:06 CK-MB (CK-2) Rel Index 1.6 (0-4) 03/23/21 05:06 Troponin T 0.017 ng/mL (0.00-0.029) 03/23/21 14:48 NT-Pro-B Natriuret Pep 2207 pg/mL (0-900) H 03/23/21 14:48 Total Protein 6.9 g/dL (6.3-8.2) 03/24/21 06:00 Albumin 3.3 g/dL (3.9-5) L 03/24/21 06:00 Albumin/Globulin Ratio 0.9 % 03/24/21 06:00 Triglycerides 46 mg/dL (2-149) 03/24/21 06:00 Cholesterol 77 mg/dL (50-199) 03/24/21 06:00 LDL Cholesterol Direct 32 mg/dL (50-130) L 03/24/21 06:00 HDL Cholesterol 45 mg/dL (40-59) 03/24/21 06:00 Cholesterol/HDL Ratio 1.71 % 03/24/21 06:00 Procalcitonin 0.87 ng/mL (<0.15) 03/23/21 14:30 Arterial Blood Glucose 111 mg/dL (65-95) H 03/24/21 04:17 Arterial Blood Ionized Calcium 4.7 mg/dL (4.6-5.3) 03/24/21 04:17 Urine Color [place] (Yellow) 03/23/21 Unknown Urine Turbidity Slightly-cloudy (Clear) 03/23/21 Unknown Urine pH 5.0 (5.0-7.0) 03/23/21 Unknown Ur Specific [place] 1.019 (1.003-1.030) 03/23/21 Unknown Urine Protein >500 mg/dL (Negative) 03/23/21 Unknown Urine Glucose (UA) 150 mg/dL (Negative) 03/23/21 Unknown Urine Ketones Neg mg/dL (Negative) 03/23/21 Unknown Urine Blood Neg (Negative) 03/23/21 Unknown Urine Nitrite Neg (Negative) 03/23/21 Unknown Urine Bilirubin Neg (Negative) 03/23/21 Unknown Urine Urobilinogen 2.0 mg/dL (<2.0) 03/23/21 Unknown Ur Leukocyte Esterase Neg (Negative) 03/23/21 Unknown Urine WBC (Auto) 2.0 /HPF (0.0-6.0) 03/23/21 Unknown Urine RBC (Auto) 15.0 /HPF (0.0-6.0) 03/23/21 Unknown U Epithel Cells (Auto) 1.0 /HPF (0-13.0) 03/23/21 Unknown Urine Bacteria (Auto) 1+ /HPF (Negative) 03/23/21 Unknown Hyaline Casts 8 /LPF 03/23/21 Unknown Urine Mucus Few /HPF 03/23/21 Unknown Urine Creatinine 37.7 mg/dL (0.1-20.0) H 03/25/21 03:50 Urine Sodium 98 mmol/L 03/25/21 03:50 Digoxin 1.0 ng/mL (0.9-2.0) 03/25/21 03:50 Coronavirus (PCR) Negative (Negative) 03/23/21 Unknown Microbiology: Microbiology 03/23/21 14:48 Peripheral/Venous Blood Culture - Preliminary NO GROWTH AFTER 24 HOURS 03/23/21 14:48 Peripheral/Venous Blood Culture - Preliminary NO GROWTH AFTER 24 HOURS 03/23/21 20:00 Sputum - Endotracheal Wash Sputum Culture - Preliminary Gamez/IV: Voiding Method External Female Catheter Active Medications - Current Medications Current Medications: Generic Name Dose Route Start Last Admin Trade Name Freq PRN Reason Stop Dose Admin Acetaminophen 650 mg 03/23/21 05:47 Acetaminophen 325 Mg Tab PO Q4H PRN Pain MILD(1-3)/Fever >100.5/CASTANO Al Hydrox/Mg Hydrox/Simethicone 30 ml 03/23/21 05:47 Alum-Mag Hydroxide-Simethicone [id number]/5ml Oral Liqd 30 Ml PO Q4H PRN Indigestion Lipase/Protease/Amylase 1 each 03/25/21 09:10 Lipase 10,500/Protease 25,000/Amylase 43,750 (Units) Dr Yadav FEEDTUBE PRN PRN For Clogged Feeding Tube Atorvastatin Calcium 80 mg 03/23/21 22:00 03/24/21 21:23 Atorvastatin 40 Mg Tab PO Not Given QHS MANOLO Dextrose 50 ml 03/23/21 17:33 03/25/21 07:29 Dextrose 50% In Water (25gm) 50 Ml Syringe IV 50 ml Q30MIN PRN Administration Hypoglycemia Protocol Digoxin 0.125 mg 03/25/21 17:00 Digoxin 0.125 Mg Tab PO Q48H MANOLO Hydrophilic Ointment 1 applic 03/23/21 11:46 Lip Therapy Vaseline TP Q2HR PRN Dry Lips Sodium Chloride 1,000 mls @ 42 mls/hr 03/23/21 06:00 Nacl 0.9% 1000 Ml IV DIRECT MANOLO Vancomycin HCl 1 gm in 250 mls @ 167.007 mls/hr 03/24/21 14:00 03/24/21 15:12 Vancomycin/Ns 1 Gm/250 Ml IV 167.007 mls/hr Q24H MANOLO Administration Ceftriaxone Sodium 1 gm in 50 mls @ 100 mls/hr 03/24/21 16:00 03/24/21 16:44 Rocephin/Ns 1 Gm/50 Ml IV 100 mls/hr Q24H MANOLO Administration Protocol Dexmedetomidine HCl 400 mcg/ 104 mls @ 2.807 mls/hr 03/24/21 17:00 03/25/21 02:47 Sodium Chloride IV 0.7 mcg/kg/hr TITRATE MANOLO 9.824 mls/hr Administration Protocol 0.2 MCG/KG/HR Insulin Human Lispro 0 unit 03/23/21 18:00 03/25/21 06:27 Insulin Lispro 100 Unit/Ml SUB-Q Not Given Q6HR [facility] Protocol Lactulose 20 gm 03/25/21 12:00 Lactulose 20 Gm/30 Ml Oral Liqd PO Q6HR [facility] Magnesium Hydroxide 30 ml 03/23/21 05:47 Magnesium Hydroxide (Mom) Oral Liqd Udc PO Q4H PRN Constipation Multi-Ingred Cream/Lotion/Oil/Oint 1 applic 03/23/21 11:46 Mineral Oil/Petrolatum, White Ophth Oint 3.5 Gm OU Q4HR PRN Dry Eye(s) Ondansetron HCl 4 mg 03/23/21 05:47 Ondansetron 4 Mg/2 Ml Inj IV Q8H PRN Nausea And Vomiting Pantoprazole Sodium 40 mg 03/25/21 07:30 Pantoprazole 40 Mg Tab PO QDAC MANOLO Senna 8.6 mg 03/23/21 05:47 Sennosides 8.6 Mg Tab PO Q12HR PRN Constipation Simple Syrup 15 ml 03/25/21 09:10 Simple Syrup 15 Ml FEEDTUBE PRN PRN Hypoglycemia Simple Syrup 30 ml 03/25/21 09:10 Simple Syrup 15 Ml FEEDTUBE PRN PRN Hypoglycemia Sodium Bicarbonate 325 mg 03/25/21 09:10 Sodium Bicarbonate 325 Mg Tab FEEDTUBE PRN PRN For Clogged Feeding Tube Sodium Chloride 10 ml 03/23/21 10:00 03/24/21 21:25 Sodium Chloride 0.9% 10 Ml Flush Syringe IV 10 ml BID MANOLO Administration Sodium Chloride 10 ml 03/23/21 05:47 03/24/21 23:15 Sodium Chloride 0.9% 10 Ml Flush Syringe IV 10 ml PRN PRN Administration LINE FLUSH Tramadol HCl 50 mg 03/23/21 06:31 Tramadol 50 Mg Tab PO Q4H PRN Pain, Moderate (4-6) Nutrition/Malnutrition Assess - Dietary Evaluation Nutrition/Malnutrition Findings: Nutrition Notes Start: 03/24/21 08:09 Freq: Status: Active Protocol: Document 03/25/21 09:04 LP (Rec: 03/25/21 09:09 LP [id number]) Nutrition Notes Need for Assessment generated from: MD Order Initial or Follow up Brief Note Subjective/Other Information Consult for TF. Nutrition Intervention Change Diet Order: TF Nutrition Support: Osmolite 1.5 at 35ml/hr Flush with 100ml q4h Kcal 1,260 Protein (gm) 53 Fluid (mL) 640 Follow-Up By: 03/27/21 Additional Comments Follow for TF start/tolerance
--- NOTE | 2021-03-25 09:58 | XRay Report ---
ABDOMEN 1 VIEW 03/25/2021 8:46 AM INDICATION / CLINICAL INFORMATION: ngt placement. COMPARISON: None available. FINDINGS: Heart is enlarged. NG tube extends into the body of the stomach. Sidehole is in the disc. This. NG tu be should be advanced Signer Name: Tejinder Solorio MD Signed: 03/25/2021 9:53 AM Workstation Name: [id number]
--- NOTE | 2021-03-25 10:13 | Progress Note ---
Assessment and Plan Assessment and Plan - Patient Problems #pt. presented with confusion/hypotension -she is with a hx of CVA and residual left side weakness -CT brain is remarkable for remote right MCA and left frontal CVA no hemorrhage -she is with a pace maker -Hx of AF on coumadine -NIH on initial evaluation is #2 she is not a candidate for TPA -INR#10.3--today #5.4 -can not have MRI due to pace maker -Can not have CTA due to Creat#1.9--today 1.6 -US carotid consider repeat CT brain as needed -Hold coumadin for today -Pt/ST- -Lipid profil ,LDL#32 -Lipitor 40 mg -ASA 81 mg daily to add # Back pain with no weakness she is with diffuse tenderness lumbar region --schadual CT lumbar spine is remarkable for mild degenerative disc disease -pt therapy -neurontine 100 mg bid # Hypertension Monitor blood pressure Resume home antihypertensive PRN hydralazine # Hyperlipidemia -LDL#32 -Lipitor 40 mg-She is on 80 mg currently # Renal insufficiency -22/11.9---1.6 # CHF (congestive heart failure) Continue BB, statin and diuretic ECHO showed sever MS with dilated LA , EF # 55%,Right ventricular dilatation and TR,PH # Diabetes Monitor blood sugar with SSI Continue antihyperglycemia A1C#10.3 need better control of suger Avoid hypoglycemia which add to her confusion today Suger 59-65 # Full code status Current Visit: Yes Status: Acute Plan to address problem: Patient is full code # DVT prophylaxis Heparin subcutaneous PLAN - Pt therapy - Hold coumadin today--NIH need to be 2-3 - Lipitor 40 mg daily and ASA 81 mg - US carotid is pendinh - neurontine 100 mg bid - monitor BP ,breathing and kidney function -Avoid restrain , encourage exposure day light during the day ,sitting on chair if possible-- Avoid Delirium -Can add seroquel 12.5 mg qhs if needed will follow Subjective Date of service: 03/25/21 Principal diagnosis: confusion/SOB,Hypoglycemia Interval history: pt. still with SOB on Cpap she is bed ridden difficult to get hx from BS#59-65 A1C#10.3 LDL#32 BP elevated in part related to agitation/delirium early 165/117 INR#5.4 Cr.#1.6 ct lumber mild degenerative disc disease Objective - Vital Sign Vital Signs - 12hr 03/24/21 03/24/21 03/24/21 22:11 22:21 22:30 Temperature Pulse Rate 80 80 80 Pulse Rate [ From Monitor] Respiratory 16 21 19 Rate Blood Pressure 151/106 152/108 151/108 O2 Sat by Pulse 100 100 98 Oximetry 03/24/21 03/24/21 03/24/21 22:41 22:51 23:00 Temperature Pulse Rate 80 80 80 Pulse Rate [ From Monitor] Respiratory 18 17 18 Rate Blood Pressure 151/108 145/107 146/109 O2 Sat by Pulse 99 99 99 Oximetry 03/24/21 03/24/21 03/24/21 23:11 23:13 23:15 Temperature 98.8 F Pulse Rate 80 Pulse Rate [ From Monitor] Respiratory 18 Rate Blood Pressure 146/109 O2 Sat by Pulse 98 95 Oximetry 03/24/21 03/24/21 03/24/21 23:19 23:21 23:30 Temperature Pulse Rate 80 80 80 Pulse Rate [ From Monitor] Respiratory 20 19 12 Rate Blood Pressure 150/102 150/102 153/100 O2 Sat by Pulse 96 97 97 Oximetry 03/24/21 03/24/21 03/24/21 23:41 23:51 23:52 Temperature Pulse Rate 80 80 80 Pulse Rate [ From Monitor] Respiratory 15 11 L 21 Rate Blood Pressure 153/100 146/103 146/103 O2 Sat by Pulse 96 96 96 Oximetry 03/25/21 03/25/21 03/25/21 00:00 00:11 00:21 Temperature Pulse Rate 80 80 80 Pulse Rate [ From Monitor] Respiratory 11 L 11 L 11 L Rate Blood Pressure 151/111 151/111 154/107 O2 Sat by Pulse 96 97 98 Oximetry 03/25/21 03/25/21 03/25/21 00:30 00:41 00:51 Temperature Pulse Rate 80 80 80 Pulse Rate [ From Monitor] Respiratory 12 13 21 Rate Blood Pressure 153/112 153/112 153/112 O2 Sat by Pulse 96 99 98 Oximetry 03/25/21 03/25/21 03/25/21 01:00 01:03 01:11 Temperature Pulse Rate 80 80 Pulse Rate [ From Monitor] Respiratory 20 15 20 Rate Blood Pressure 152/108 152/108 O2 Sat by Pulse 99 95 100 Oximetry 05/03/25/21 03/25/21 01:21 01:30 01:41 Temperature Pulse Rate 80 80 80 Pulse Rate [ From Monitor] Respiratory 19 14 19 Rate Blood Pressure 142/92 162/113 162/113 O2 Sat by Pulse 99 99 100 Oximetry 03/25/21 03/25/21 03/25/21 01:51 02:00 02:11 Temperature Pulse Rate 80 80 80 Pulse Rate [ From Monitor] Respiratory 17 18 21 Rate Blood Pressure 164/115 166/115 166/115 O2 Sat by Pulse 99 99 99 Oximetry 03/25/21 03/25/21 03/25/21 02:21 02:31 02:41 Temperature Pulse Rate 80 80 80 Pulse Rate [ From Monitor] Respiratory 14 19 20 Rate Blood Pressure 160/110 122/85 168/117 O2 Sat by Pulse 99 95 Oximetry 03/25/21 03/25/21 03/25/21 02:42 02:51 03:00 Temperature Pulse Rate 80 80 80 Pulse Rate [ From Monitor] Respiratory 15 17 Rate Blood Pressure 168/117 151/106 152/113 O2 Sat by Pulse 95 94 Oximetry 03/25/21 03/25/21 03/25/21 03:07 03:11 03:21 Temperature 98.4 F Pulse Rate 80 80 Pulse Rate [ From Monitor] Respiratory 11 L 15 Rate Blood Pressure 152/113 148/113 O2 Sat by Pulse 96 96 Oximetry 03/25/21 03/25/21 03/25/21 03:30 03:41 03:51 Temperature Pulse Rate 80 80 80 Pulse Rate [ From Monitor] Respiratory 21 22 19 Rate Blood Pressure 150/116 150/116 155/112 O2 Sat by Pulse 97 98 98 Oximetry 03/25/21 03/25/21 03/25/21 04:00 04:11 04:21 Temperature Pulse Rate 80 80 80 Pulse Rate [ From Monitor] Respiratory 20 16 18 Rate Blood Pressure 161/119 161/119 171/121 O2 Sat by Pulse 98 98 98 Oximetry 03/25/21 03/25/21 03/25/21 04:30 04:41 04:51 Temperature Pulse Rate 80 80 80 Pulse Rate [ From Monitor] Respiratory 15 19 15 Rate Blood Pressure 160/117 160/117 165/116 O2 Sat by Pulse 98 97 Oximetry 03/25/21 03/25/21 03/25/21 05:00 05:11 05:21 Temperature Pulse Rate 80 80 80 Pulse Rate [ From Monitor] Respiratory 24 21 16 Rate Blood Pressure 149/112 149/112 160/115 O2 Sat by Pulse 97 96 98 Oximetry 03/25/21 03/25/21 03/25/21 05:30 05:41 05:51 Temperature Pulse Rate 80 84 80 Pulse Rate [ From Monitor] Respiratory 18 15 18 Rate Blood Pressure 165/117 165/117 147/104 O2 Sat by Pulse 97 75 L 100 Oximetry 03/25/21 03/25/21 03/25/21 06:00 06:11 06:20 Temperature Pulse Rate 80 80 80 Pulse Rate [ From Monitor] Respiratory 17 19 17 Rate Blood Pressure 159/120 159/120 161/110 O2 Sat by Pulse 99 99 99 Oximetry 03/25/21 03/25/21 03/25/21 06:30 06:40 06:50 Temperature Pulse Rate 80 80 80 Pulse Rate [ From Monitor] Respiratory 19 21 18 Rate Blood Pressure 161/110 167/118 O2 Sat by Pulse 100 100 Oximetry 03/25/21 03/25/21 03/25/21 07:00 07:10 07:20 Temperature Pulse Rate 80 80 80 Pulse Rate [ 80 From Monitor] Respiratory 18 18 14 Rate Blood Pressure 168/115 168/115 167/118 O2 Sat by Pulse 95 95 100 Oximetry 03/25/21 03/25/21 03/25/21 07:30 07:40 07:50 Temperature Pulse Rate 80 80 80 Pulse Rate [ From Monitor] Respiratory 14 19 17 Rate Blood Pressure 177/127 177/127 177/127 O2 Sat by Pulse 99 100 100 Oximetry 03/25/21 03/25/21 03/25/21 08:00 08:10 08:16 Temperature 97.4 F L Pulse Rate 85 80 Pulse Rate [ From Monitor] Respiratory 20 28 H Rate Blood Pressure 177/127 139/106 O2 Sat by Pulse 100 98 100 Oximetry 03/25/21 03/25/21 03/25/21 08:20 08:30 08:40 Temperature Pulse Rate 80 81 80 Pulse Rate [ From Monitor] Respiratory 17 23 9 L Rate Blood Pressure 151/112 141/102 141/102 O2 Sat by Pulse 96 96 95 Oximetry 03/25/21 03/25/21 03/25/21 08:50 09:00 09:10 Temperature Pulse Rate 80 80 80 Pulse Rate [ From Monitor] Respiratory 20 11 L 15 Rate Blood Pressure 164/119 166/124 166/124 O2 Sat by Pulse 90 97 97 Oximetry 03/25/21 09:20 Temperature Pulse Rate 80 Pulse Rate [ From Monitor] Respiratory 29 H Rate Blood Pressure 134/102 O2 Sat by Pulse 98 Oximetry - General Apperance Constitutional: other (getting agitated and restless at time she is still restrained on Cpap) - EENT EENT: PERRL, mucous membranes moist - Respiratory Respiratory: chest non-tender, lungs clear, crackles - Cardiovascular Cardiovascular: other (irregular ) Extremities: no peripheral edema bilat, no clubbing, cyanosis - Gastrointestinal Gastrointestinal: normoactive bowel sounds - Integumentary Integumentary: normal - Neurologic Cranial nerve examination: PERRL, EOMI, intact Speech examination: intact Detailed motor examination: grossly full strength in - Laboratory Findings CBC and BMP: 03/24/21 06:00 03/25/21 03:50 Abnormal Lab Findings: Abnormal Labs 03/23/21 03/23/21 03/23/21 05:06 05:06 10:07 WBC RDW 16.4 H Plt Count 132 L Lymph % (Auto) [facility] % (Auto) Lymph # (Auto) 0.9 L [facility] # (Auto) Baso # (Auto) Seg Neutrophils % 72.4 H Seg Neutrophils # PT 38.3 H INR 3.86 H APTT 40.0 H D-Dimer ABG pH 7.220 L POC ABG pO2 59.3 L ABG Oxyhemoglobin ABG Potassium 5.0 H ABG Chloride 108.0 H ABG Glucose 364 H Carboxyhemoglobin Sodium Chloride Carbon Dioxide BUN Creatinine Glucose POC Glucose Hemoglobin A1c Lactic Acid Calcium Total Bilirubin AST Alkaline Phosphatase NT-Pro-B Natriuret Pep Albumin LDL Cholesterol Direct Arterial Blood Glucose 364 H Arterial Blood Ionized Calcium 4.4 L Urine Creatinine 03/23/21 03/23/21 03/23/21 11:34 14:30 14:48 WBC RDW Plt Count Lymph % (Auto) [facility] % (Auto) Lymph # (Auto) [facility] # (Auto) Baso # (Auto) Seg Neutrophils % Seg Neutrophils # PT 60.1 H INR 6.71 H* APTT D-Dimer 1850.11 H ABG pH POC ABG pO2 ABG Oxyhemoglobin ABG Potassium ABG Chloride ABG Glucose Carboxyhemoglobin Sodium 136 L Chloride Carbon Dioxide 17 L BUN 26 H Creatinine 2.3 H Glucose 383 H POC Glucose 340 H Hemoglobin A1c Lactic Acid Calcium Total Bilirubin 2.20 H AST 76 H Alkaline Phosphatase 166 H NT-Pro-B Natriuret Pep Albumin 3.4 L LDL Cholesterol Direct Arterial Blood Glucose Arterial Blood Ionized Calcium Urine Creatinine 03/23/21 03/23/21 03/23/21 14:48 14:48 17:24 WBC RDW Plt Count Lymph % (Auto) [facility] % (Auto) Lymph # (Auto) [facility] # (Auto) Baso # (Auto) Seg Neutrophils % Seg Neutrophils # PT INR APTT D-Dimer ABG pH POC ABG pO2 ABG Oxyhemoglobin ABG Potassium ABG Chloride ABG Glucose Carboxyhemoglobin Sodium Chloride Carbon Dioxide BUN Creatinine Glucose POC Glucose 338 H Hemoglobin A1c Lactic Acid 4.20 H* Calcium Total Bilirubin AST Alkaline Phosphatase NT-Pro-B Natriuret Pep 2207 H Albumin LDL Cholesterol Direct Arterial Blood Glucose Arterial Blood Ionized Calcium Urine Creatinine 03/23/21 03/23/21 03/23/21 19:30 19:30 19:30 WBC 12.3 H RDW 16.1 H Plt Count 136 L Lymph % (Auto) 6.6 L [facility] % (Auto) Lymph # (Auto) 0.8 L [facility] # (Auto) Baso # (Auto) 0.2 H Seg Neutrophils % 88.1 H Seg Neutrophils # 10.9 H PT INR APTT D-Dimer ABG pH POC ABG pO2 ABG Oxyhemoglobin ABG Potassium ABG Chloride ABG Glucose Carboxyhemoglobin Sodium Chloride Carbon Dioxide 19 L BUN 26 H Creatinine 2.2 H Glucose 341 H POC Glucose Hemoglobin A1c Lactic Acid 3.50 H* Calcium 8.0 L Total Bilirubin 1.90 H AST 65 H Alkaline Phosphatase 158 H NT-Pro-B Natriuret Pep Albumin 3.1 L LDL Cholesterol Direct Arterial Blood Glucose Arterial Blood Ionized Calcium Urine Creatinine 03/23/21 03/24/21 03/24/21 23:21 04:17 04:50 WBC RDW Plt Count Lymph % (Auto) [facility] % (Auto) Lymph # (Auto) [facility] # (Auto) Baso # (Auto) Seg Neutrophils % Seg Neutrophils # PT INR APTT D-Dimer ABG pH POC ABG pO2 79.7 L ABG Oxyhemoglobin 93.3 L ABG Potassium ABG Chloride 111.0 H ABG Glucose 111 H Carboxyhemoglobin 0.3 L Sodium Chloride Carbon Dioxide BUN Creatinine Glucose POC Glucose 283 H 110 H Hemoglobin A1c Lactic Acid Calcium Total Bilirubin AST Alkaline Phosphatase NT-Pro-B Natriuret Pep Albumin LDL Cholesterol Direct Arterial Blood Glucose 111 H Arterial Blood Ionized Calcium Urine Creatinine 03/24/21 03/24/21 03/24/21 06:00 06:00 06:00 WBC 11.3 H RDW 16.6 H Plt Count Lymph % (Auto) 7.0 L [facility] % (Auto) 8.5 H Lymph # (Auto) 0.8 L [facility] # (Auto) 1.0 H Baso # (Auto) Seg Neutrophils % 82.9 H Seg Neutrophils # 9.4 H PT INR APTT D-Dimer ABG pH POC ABG pO2 ABG Oxyhemoglobin ABG Potassium ABG Chloride ABG Glucose Carboxyhemoglobin Sodium Chloride 110.2 H Carbon Dioxide BUN 26 H Creatinine 1.9 H Glucose POC Glucose Hemoglobin A1c 10.3 H Lactic Acid Calcium 8.3 L Total Bilirubin 1.40 H AST 46 H Alkaline Phosphatase 157 H NT-Pro-B Natriuret Pep Albumin 3.3 L LDL Cholesterol Direct 32 L Arterial Blood Glucose Arterial Blood Ionized Calcium Urine Creatinine 03/24/21 03/24/21 03/24/21 06:00 11:55 12:19 WBC RDW Plt Count Lymph % (Auto) [facility] % (Auto) Lymph # (Auto) [facility] # (Auto) Baso # (Auto) Seg Neutrophils % Seg Neutrophils # PT 46.8 H INR 4.91 H APTT D-Dimer ABG pH POC ABG pO2 ABG Oxyhemoglobin ABG Potassium ABG Chloride ABG Glucose Carboxyhemoglobin Sodium Chloride Carbon Dioxide BUN Creatinine Glucose POC Glucose 59 L 170 H Hemoglobin A1c Lactic Acid Calcium Total Bilirubin AST Alkaline Phosphatase NT-Pro-B Natriuret Pep Albumin LDL Cholesterol Direct Arterial Blood Glucose Arterial Blood Ionized Calcium Urine Creatinine 03/24/21 03/24/21 03/24/21 12:44 17:48 23:09 WBC RDW Plt Count Lymph % (Auto) [facility] % (Auto) Lymph # (Auto) [facility] # (Auto) Baso # (Auto) Seg Neutrophils % Seg Neutrophils # PT INR APTT D-Dimer ABG pH POC ABG pO2 ABG Oxyhemoglobin ABG Potassium ABG Chloride ABG Glucose Carboxyhemoglobin Sodium Chloride Carbon Dioxide BUN Creatinine Glucose POC Glucose 140 H 69 L 65 L Hemoglobin A1c Lactic Acid Calcium Total Bilirubin AST Alkaline Phosphatase NT-Pro-B Natriuret Pep Albumin LDL Cholesterol Direct Arterial Blood Glucose Arterial Blood Ionized Calcium Urine Creatinine 03/25/21 03/25/21 03/25/21 00:22 03:50 03:50 WBC RDW Plt Count Lymph % (Auto) [facility] % (Auto) Lymph # (Auto) [facility] # (Auto) Baso # (Auto) Seg Neutrophils % Seg Neutrophils # PT 50.5 H INR 5.40 H* APTT D-Dimer ABG pH POC ABG pO2 ABG Oxyhemoglobin ABG Potassium ABG Chloride ABG Glucose Carboxyhemoglobin Sodium Chloride Carbon Dioxide BUN Creatinine Glucose POC Glucose 66 L Hemoglobin A1c Lactic Acid Calcium Total Bilirubin AST Alkaline Phosphatase NT-Pro-B Natriuret Pep Albumin LDL Cholesterol Direct Arterial Blood Glucose Arterial Blood Ionized Calcium Urine Creatinine 37.7 H 03/25/21 03:50 WBC RDW Plt Count Lymph % (Auto) [facility] % (Auto) Lymph # (Auto) [facility] # (Auto) Baso # (Auto) Seg Neutrophils % Seg Neutrophils # PT INR APTT D-Dimer ABG pH POC ABG pO2 ABG Oxyhemoglobin ABG Potassium ABG Chloride ABG Glucose Carboxyhemoglobin Sodium Chloride 110.9 H Carbon Dioxide BUN 23 H Creatinine 1.6 H Glucose POC Glucose Hemoglobin A1c Lactic Acid Calcium Total Bilirubin AST Alkaline Phosphatase NT-Pro-B Natriuret Pep Albumin LDL Cholesterol Direct Arterial Blood Glucose Arterial Blood Ionized Calcium Urine Creatinine
--- NOTE | 2021-03-25 10:35 | Progress Note ---
Assessment and Plan Cultures: 03/23/2021 blood culture: no growth 03/23/2021 Resp culture: in process. No WBC on Gram stain. A/P: 65-year-old female with prior CVA, atrial fibrillation on anticoagulation, hypertension, diabetes, indwelling cardiac pacemaker, TAVR was admitted to the hospital on 03/23/2021 with altered mental status and left facial droop: #Shock: Unlikely to be sepsis, no clear source identified. Patient was hypothermic and hypotensive on admission. Has significant valvular heart disease. Does have indwelling cardiac device. Rule out bacteremia. UA not impressive for UTI, chest x-ray also not impressive for pneumonia. #Acute respiratory failure: Seems to be improving. #CLAYTNO on CKD: renally dose abx. #Supratherapeutic INR Recs: -no fever, no source of infection identified. Cultures negative. Antibiotics discontinued Ludwig Portillo MD, FACP [facility] O: [phone] F: [phone] Subjective Date of service: 03/25/21 Principal diagnosis: confusion/SOB,Hypoglycemia Interval history: No fever. Remains confused, has restraints on, on Precedex. On NRB. No other issues per RN. Objective - Exam Narrative Exam: Physical Exam: Constitutional: calm, no distress Head, Ears, Nose: Normocephalic, atraumatic. External ears, nose normal Eyes: Conjunctivae/corneas clear. No icterus. No ptosis. Neck: Supple, no meningeal signs Oral: Limited Cardiovascular: S1, S2 normal. Respiratory: Good air entry, clear to auscultation bilaterally GI: Soft, non-tender; bowel sounds normal. No peritoneal signs Musculoskeletal: No pedal edema, no cyanosis. Skin: No rash or abscess Hem/Lymphatic: No palpable cervical or supraclavicular nodes. No lymphangitis Psych: calm, sedated Neurological: calm, sedated, exam limited - Constitutional Vitals: Vital Signs Temp Pulse Resp BP Pulse Ox 97.4 F L 80 29 H 171/123 98 03/25/21 08:00 03/25/21 10:18 03/25/21 09:20 03/25/21 10:18 03/25/21 09:20 Temperature -Last 24 Hours Temperature 97.4 F Temperature 98.4 F Temperature 98.8 F Temperature 97.6 F Temperature 97.7 F - Labs CBC & Chem 7: 03/24/21 06:00 03/25/21 03:50 Labs: Abnormal lab results 03/24/21 03/24/21 03/24/21 Range/Units 11:55 12:19 12:44 PT (12.2-14.9) Sec. INR (0.87-1.13) Chloride (98-107) mmol/L BUN (7-17) mg/dL Creatinine (0.6-1.2) mg/dL POC Glucose 59 L 170 H 140 H (70-105) mg/dL Urine Creatinine (0.1-20.0) mg/dL 03/24/21 03/24/21 03/25/21 Range/Units 17:48 23:09 00:22 PT (12.2-14.9) Sec. INR (0.87-1.13) Chloride (98-107) mmol/L BUN (7-17) mg/dL Creatinine (0.6-1.2) mg/dL POC Glucose 69 L 65 L 66 L (70-105) mg/dL Urine Creatinine (0.1-20.0) mg/dL 03/25/21 03/25/21 03/25/21 Range/Units 03:50 03:50 03:50 PT 50.5 H (12.2-14.9) Sec. INR 5.40 H* (0.87-1.13) Chloride 110.9 H (98-107) mmol/L BUN 23 H (7-17) mg/dL Creatinine 1.6 H (0.6-1.2) mg/dL POC Glucose (70-105) mg/dL Urine Creatinine 37.7 H (0.1-20.0) mg/dL
--- NOTE | 2021-03-25 11:11 | Progress Note ---
Assessment and Plan Acute hypoxemic respiratory failure. Septic shock Acute CVA Coagulopathy Diabetes mellitus type 2 s/p PPM -Continue with NRBM, follow up CT head study -Get ammonia levels, empirically start Lactulose while waiting for the ammonia level results -Continue to hold off on any VTE prophylaxis, elevated INR -Titrate supplemental oxygen to keep SpO2 89-92% -DVT Prophylaxis: SCD - LDL < 70, telemetry monitoring -Glycemic control Target blood glucose [id number] -Nutrition consult for tube feeding -Blood pressure control, much better -Agitation management -Supportive transfusions as clinically indicated to keep HgB >7g/dL -CTscan without contrast of the head- encephalopathic, elevated INR -Cardioprotective measures -Updated her at the bedside -Low threshold to intubate -Discussed with Cardiology CONDITION: CRITICAL PROGNOSIS: GUARDED CODE STATUS: FULL CODE The high probability of a clinically significant, sudden or life threatening deterioration of the [hemodynamic, respiratory and neurologic] system(s) re quired my full and direct attention, intervention and personal management. The aggregate critical care time was [33] minutes. This time is in addition to time spent performing reported procedures but includes the following: [x] Data Review and interpretation [x] Patient assessment and monitoring of vital signs [x] Documentation [x] Medication orders and management Subjective Date of service: 03/25/21 Principal diagnosis: confusion/SOB,Hypoglycemia Interval history: 65F with prior R MCA stroke, atiral fibrillation on coumadin, HTN, DM presents with left facial droop and slurred speech, AMS. Symptoms started at 0100 the morning prior to admission.. Initially hypotensive to 80/60. Saturating 90% on room air. Blood sugar 373. Complaining of significant pain in her back and saying she can't breathe. ED Work Up-WBC 4.7, hemoglobin 12.3, PLT 132, Troponin 0.010, CT of the head-No acute finding process Patient seen at bedside, patients at bedside. patient with left facial droop and slurred speech. patient has hx of CVA, HTN, DM and atiral fibrillation on coumadin. Patient was admitted with diagnosis of septic shock, acute hypoxic respiratory failure and CVA. 03/24 -Seen and examined. Vitals, labs, medications, chart reviewed. On BIPAP and her is at the bedside. She complains of back pain. Episode of coffee ground emesis, discussed with GI at the bedside, he states there is no need fro any interventions at this time. 03/25 -On going agitation, pulled off BIPAP overnight, now on a NRBM. Discussed with nursing and respiratory staff. No fevers, no vomiting, no episodes of hypoglycemia. With changes in her mental status, discussed with her at the bedside, th at will get stat CT head to r/o intracranial bleeding. Objective - Exam Narrative Exam: Physical Exam: Constitutional: encephalopathic ,on NRBM Head, Ears, Nose: Normocephalic, atraumatic. External ears, nose normal Eyes: Conjunctivae/corneas clear. No icterus. No ptosis. Neck: Supple, no meningeal signs Oral: Limited Cardiovascular: S1, S2 normal. Left chest wall device- Telemtry- paced Respiratory: Good air entry, clear to auscultation bilaterally GI: Soft, non-tender; bowel sounds normal. No peritoneal signs Musculoskeletal: No pedal edema, no cyanosis. Skin: No rash or abscess Hem/Lymphatic: No palpable cervical or supraclavicular nodes. No lymphangitis Psych: Intermittent agitation Neurological: Encephalopathic Vital Signs - 12hr 03/24/21 03/24/21 03/24/21 23:13 23:15 23:19 Temperature 98.8 F Pulse Rate 80 Pulse Rate [ From Monitor] Respiratory 20 Rate Blood Pressure 150/102 O2 Sat by Pulse 95 96 Oximetry 03/24/21 03/24/21 03/24/21 23:21 23:30 23:41 Temperature Pulse Rate 80 80 80 Pulse Rate [ From Monitor] Respiratory 19 12 15 Rate Blood Pressure 150/102 153/100 153/100 O2 Sat by Pulse 97 97 96 Oximetry 03/24/21 03/24/21 03/25/21 23:51 23:52 00:00 Temperature Pulse Rate 80 80 80 Pulse Rate [ From Monitor] Respiratory 11 L 21 11 L Rate Blood Pressure 146/103 146/103 151/111 O2 Sat by Pulse 96 96 96 Oximetry 03/25/21 03/25/21 03/25/21 00:11 00:21 00:30 Temperature Pulse Rate 80 80 80 Pulse Rate [ From Monitor] Respiratory 11 L 11 L 12 Rate Blood Pressure 151/111 154/107 153/112 O2 Sat by Pulse 97 98 96 Oximetry 03/25/21 03/25/21 03/25/21 00:41 00:51 01:00 Temperature Pulse Rate 80 80 80 Pulse Rate [ From Monitor] Respiratory 13 21 20 Rate Blood Pressure 153/112 153/112 152/108 O2 Sat by Pulse 99 98 99 Oximetry 03/25/21 03/25/21 03/25/21 01:03 01:11 01:21 Temperature Pulse Rate 80 80 Pulse Rate [ From Monitor] Respiratory 15 20 19 Rate Blood Pressure 152/108 142/92 O2 Sat by Pulse 95 100 99 Oximetry 03/25/21 03/25/21 03/25/21 01:30 01:41 01:51 Temperature Pulse Rate 80 80 80 Pulse Rate [ From Monitor] Respiratory 14 19 17 Rate Blood Pressure 162/113 162/113 164/115 O2 Sat by Pulse 99 100 99 Oximetry 03/25/21 03/25/21 03/25/21 02:00 02:11 02:21 Temperature Pulse Rate 80 80 80 Pulse Rate [ From Monitor] Respiratory 18 21 14 Rate Blood Pressure 166/115 166/115 160/110 O2 Sat by Pulse 99 99 99 Oximetry 03/25/21 03/25/21 03/25/21 02:31 02:41 02:42 Temperature Pulse Rate 80 80 80 Pulse Rate [ From Monitor] Respiratory 19 20 Rate Blood Pressure 122/85 168/117 168/117 O2 Sat by Pulse 95 Oximetry 03/25/21 03/25/21 03/25/21 02:51 03:00 03:07 Temperature 98.4 F Pulse Rate 80 80 Pulse Rate [ From Monitor] Respiratory 15 17 Rate Blood Pressure 151/106 152/113 O2 Sat by Pulse 95 94 Oximetry 03/25/21 03/25/21 03/25/21 03:11 03:21 03:30 Temperature Pulse Rate 80 80 80 Pulse Rate [ From Monitor] Respiratory 11 L 15 21 Rate Blood Pressure 152/113 148/113 150/116 O2 Sat by Pulse 96 96 97 Oximetry 03/25/21 03/25/21 03/25/21 03:41 03:51 04:00 Temperature Pulse Rate 80 80 80 Pulse Rate [ From Monitor] Respiratory 22 19 20 Rate Blood Pressure 150/116 155/112 161/119 O2 Sat by Pulse 98 98 98 Oximetry 03/25/21 03/25/21 03/25/21 04:11 04:21 04:30 Temperature Pulse Rate 80 80 80 Pulse Rate [ From Monitor] Respiratory 16 18 15 Rate Blood Pressure 161/119 171/121 160/117 O2 Sat by Pulse 98 98 Oximetry 03/25/21 03/25/21 03/25/21 04:41 04:51 05:00 Temperature Pulse Rate 80 80 80 Pulse Rate [ From Monitor] Respiratory 19 15 24 Rate Blood Pressure 160/117 165/116 149/112 O2 Sat by Pulse 98 97 97 Oximetry 03/25/21 03/25/21 03/25/21 05:11 05:21 05:30 Temperature Pulse Rate 80 80 80 Pulse Rate [ From Monitor] Respiratory 21 16 18 Rate Blood Pressure 149/112 160/115 165/117 O2 Sat by Pulse 96 98 97 Oximetry 03/25/21 03/25/21 03/25/21 05:41 05:51 06:00 Temperature Pulse Rate 84 80 80 Pulse Rate [ From Monitor] Respiratory 15 18 17 Rate Blood Pressure 165/117 147/104 159/120 O2 Sat by Pulse 75 L 100 99 Oximetry 03/25/21 03/25/21 03/25/21 06:11 06:20 06:30 Temperature Pulse Rate 80 80 80 Pulse Rate [ From Monitor] Respiratory 19 17 19 Rate Blood Pressure 159/120 161/110 O2 Sat by Pulse 99 99 Oximetry 03/25/21 03/25/21 03/25/21 06:40 06:50 07:00 Temperature Pulse Rate 80 80 80 Pulse Rate [ 80 From Monitor] Respiratory 21 18 18 Rate Blood Pressure 161/110 167/118 168/115 O2 Sat by Pulse 100 100 95 Oximetry 03/25/21 03/25/21 03/25/21 07:10 07:20 07:30 Temperature Pulse Rate 80 80 80 Pulse Rate [ From Monitor] Respiratory 18 14 14 Rate Blood Pressure 168/115 167/118 177/127 O2 Sat by Pulse 95 100 99 Oximetry 03/25/21 03/25/21 03/25/21 07:40 07:50 08:00 Temperature 97.4 F L Pulse Rate 80 80 85 Pulse Rate [ From Monitor] Respiratory 19 17 20 Rate Blood Pressure 177/127 177/127 177/127 O2 Sat by Pulse 100 100 100 Oximetry 03/25/21 03/25/21 03/25/21 08:10 08:16 08:20 Temperature Pulse Rate 80 80 Pulse Rate [ From Monitor] Respiratory 28 H 17 Rate Blood Pressure 139/106 151/112 O2 Sat by Pulse 98 100 96 Oximetry 03/25/21 03/25/21 03/25/21 08:30 08:40 08:50 Temperature Pulse Rate 81 80 80 Pulse Rate [ From Monitor] Respiratory 23 9 L 20 Rate Blood Pressure 141/102 141/102 164/119 O2 Sat by Pulse 96 95 90 Oximetry 03/25/21 03/25/21 03/25/21 09:00 09:10 09:20 Temperature Pulse Rate 80 80 80 Pulse Rate [ From Monitor] Respiratory 11 L 15 29 H Rate Blood Pressure 166/124 166/124 134/102 O2 Sat by Pulse 97 97 98 Oximetry 03/25/21 03/25/21 03/25/21 09:30 09:40 09:50 Temperature Pulse Rate 82 80 80 Pulse Rate [ From Monitor] Respiratory 16 24 15 Rate Blood Pressure 174/121 174/121 166/122 O2 Sat by Pulse 99 98 98 Oximetry 03/25/21 03/25/21 03/25/21 10:00 10:10 10:18 Temperature Pulse Rate 83 80 80 Pulse Rate [ From Monitor] Respiratory 16 16 Rate Blood Pressure 171/114 171/114 171/123 O2 Sat by Pulse 98 98 Oximetry 03/25/21 03/25/21 03/25/21 10:20 10:30 10:40 Temperature Pulse Rate 80 80 83 Pulse Rate [ From Monitor] Respiratory 13 14 13 Rate Blood Pressure 171/123 168/124 168/124 O2 Sat by Pulse 98 98 98 Oximetry Gastrointestinal: normoactive bowel sounds Integumentary: normal CBC and BMP: 03/24/21 06:00 03/25/21 03:50 ABG, PT/INR, D-dimer: ABG ABG pH 7.338 (7.320-7.450) 03/24/21 04:17 POC ABG pCO2 36.6 mmHg (32.0-48.0) 03/24/21 04:17 POC ABG pO2 79.7 mmHg (83-108) L 03/24/21 04:17 POC ABG HCO3 19.2 03/24/21 04:17 ABG O2 Saturation 93.9 (0-100) 03/24/21 04:17 PT/INR, D-dimer PT 50.5 Sec. (12.2-14.9) H 03/25/21 03:50 INR 5.40 (0.87-1.13) H* 03/25/21 03:50 D-Dimer 1850.11 ng/mlDDU (0-234) H 03/23/21 14:48 Abnormal lab findings: Abnormal Labs 03/23/21 03/23/21 03/23/21 05:06 05:06 10:07 WBC RDW 16.4 H Plt Count 132 L Lymph % (Auto) Preston % (Auto) Lymph # (Auto) 0.9 L Preston # (Auto) Baso # (Auto) Seg Neutrophils % 72.4 H Seg Neutrophils # PT 38.3 H INR 3.86 H APTT 40.0 H D-Dimer ABG pH 7.220 L POC ABG pO2 59.3 L ABG Oxyhemoglobin ABG Potassium 5.0 H ABG Chloride 108.0 H ABG Glucose 364 H Carboxyhemoglobin Sodium Chloride Carbon Dioxide BUN Creatinine Glucose POC Glucose Hemoglobin A1c Lactic Acid Calcium Total Bilirubin AST Alkaline Phosphatase NT-Pro-B Natriuret Pep Albumin LDL Cholesterol Direct Arterial Blood Glucose 364 H Arterial Blood Ionized Calcium 4.4 L Urine Creatinine 03/23/21 03/23/21 03/23/21 11:34 14:30 14:48 WBC RDW Plt Count Lymph % (Auto) Preston % (Auto) Lymph # (Auto) Preston # (Auto) Baso # (Auto) Seg Neutrophils % Seg Neutrophils # PT 60.1 H INR 6.71 H* APTT D-Dimer 1850.11 H ABG pH POC ABG pO2 ABG Oxyhemoglobin ABG Potassium ABG Chloride ABG Glucose Carboxyhemoglobin Sodium 136 L Chloride Carbon Dioxide 17 L BUN 26 H Creatinine 2.3 H Glucose 383 H POC Glucose 340 H Hemoglobin A1c Lactic Acid Calcium Total Bilirubin 2.20 H AST 76 H Alkaline Phosphatase 166 H NT-Pro-B Natriuret Pep Albumin 3.4 L LDL Cholesterol Direct Arterial Blood Glucose Arterial Blood Ionized Calcium Urine Creatinine 03/23/21 03/23/21 03/23/21 14:48 14:48 17:24 WBC RDW Plt Count Lymph % (Auto) Preston % (Auto) Lymph # (Auto) Preston # (Auto) Baso # (Auto) Seg Neutrophils % Seg Neutrophils # PT INR APTT D-Dimer ABG pH POC ABG pO2 ABG Oxyhemoglobin ABG Potassium ABG Chloride ABG Glucose Carboxyhemoglobin Sodium Chloride Carbon Dioxide BUN Creatinine Glucose POC Glucose 338 H Hemoglobin A1c Lactic Acid 4.20 H* Calcium Total Bilirubin AST Alkaline Phosphatase NT-Pro-B Natriuret Pep 2207 H Albumin LDL Cholesterol Direct Arterial Blood Glucose Arterial Blood Ionized Calcium Urine Creatinine 03/23/21 03/23/21 03/23/21 19:30 19:30 19:30 WBC 12.3 H RDW 16.1 H Plt Count 136 L Lymph % (Auto) 6.6 L Preston % (Auto) Lymph # (Auto) 0.8 L Preston # (Auto) Baso # (Auto) 0.2 H Seg Neutrophils % 88.1 H Seg Neutrophils # 10.9 H PT INR APTT D-Dimer ABG pH POC ABG pO2 ABG Oxyhemoglobin ABG Potassium ABG Chloride ABG Glucose Carboxyhemoglobin Sodium Chloride Carbon Dioxide 19 L BUN 26 H Creatinine 2.2 H Glucose 341 H POC Glucose Hemoglobin A1c Lactic Acid 3.50 H* Calcium 8.0 L Total Bilirubin 1.90 H AST 65 H Alkaline Phosphatase 158 H NT-Pro-B Natriuret Pep Albumin 3.1 L LDL Cholesterol Direct Arterial Blood Glucose Arterial Blood Ionized Calcium Urine Creatinine 03/23/21 03/24/21 03/24/21 23:21 04:17 04:50 WBC RDW Plt Count Lymph % (Auto) Preston % (Auto) Lymph # (Auto) Preston # (Auto) Baso # (Auto) Seg Neutrophils % Seg Neutrophils # PT INR APTT D-Dimer ABG pH POC ABG pO2 79.7 L ABG Oxyhemoglobin 93.3 L ABG Potassium ABG Chloride 111.0 H ABG Glucose 111 H Carboxyhemoglobin 0.3 L Sodium Chloride Carbon Dioxide BUN Creatinine Glucose POC Glucose 283 H 110 H Hemoglobin A1c Lactic Acid Calcium Total Bilirubin AST Alkaline Phosphatase NT-Pro-B Natriuret Pep Albumin LDL Cholesterol Direct Arterial Blood Glucose 111 H Arterial Blood Ionized Calcium Urine Creatinine 03/24/21 03/24/21 03/24/21 06:00 06:00 06:00 WBC 11.3 H RDW 16.6 H Plt Count Lymph % (Auto) 7.0 L Preston % (Auto) 8.5 H Lymph # (Auto) 0.8 L Preston # (Auto) 1.0 H Baso # (Auto) Seg Neutrophils % 82.9 H Seg Neutrophils # 9.4 H PT INR APTT D-Dimer ABG pH POC ABG pO2 ABG Oxyhemoglobin ABG Potassium ABG Chloride ABG Glucose Carboxyhemoglobin Sodium Chloride 110.2 H Carbon Dioxide BUN 26 H Creatinine 1.9 H Glucose POC Glucose Hemoglobin A1c 10.3 H Lactic Acid Calcium 8.3 L Total Bilirubin 1.40 H AST 46 H Alkaline Phosphatase 157 H NT-Pro-B Natriuret Pep Albumin 3.3 L LDL Cholesterol Direct 32 L Arterial Blood Glucose Arterial Blood Ionized Calcium Urine Creatinine 03/24/21 03/24/21 03/24/21 06:00 11:55 12:19 WBC RDW Plt Count Lymph % (Auto) Preston % (Auto) Lymph # (Auto) Preston # (Auto) Baso # (Auto) Seg Neutrophils % Seg Neutrophils # PT 46.8 H INR 4.91 H APTT D-Dimer ABG pH POC ABG pO2 ABG Oxyhemoglobin ABG Potassium ABG Chloride ABG Glucose Carboxyhemoglobin Sodium Chloride Carbon Dioxide BUN Creatinine Glucose POC Glucose 59 L 170 H Hemoglobin A1c Lactic Acid Calcium Total Bilirubin AST Alkaline Phosphatase NT-Pro-B Natriuret Pep Albumin LDL Cholesterol Direct Arterial Blood Glucose Arterial Blood Ionized Calcium Urine Creatinine 03/24/21 03/24/21 03/24/21 12:44 17:48 23:09 WBC RDW Plt Count Lymph % (Auto) Preston % (Auto) Lymph # (Auto) Preston # (Auto) Baso # (Auto) Seg Neutrophils % Seg Neutrophils # PT INR APTT D-Dimer ABG pH POC ABG pO2 ABG Oxyhemoglobin ABG Potassium ABG Chloride ABG Glucose Carboxyhemoglobin Sodium Chloride Carbon Dioxide BUN Creatinine Glucose POC Glucose 140 H 69 L 65 L Hemoglobin A1c Lactic Acid Calcium Total Bilirubin AST Alkaline Phosphatase NT-Pro-B Natriuret Pep Albumin LDL Cholesterol Direct Arterial Blood Glucose Arterial Blood Ionized Calcium Urine Creatinine 03/25/21 03/25/21 03/25/21 00:22 03:50 03:50 WBC RDW Plt Count Lymph % (Auto) Preston % (Auto) Lymph # (Auto) [place] # (Auto) Baso # (Auto) Seg Neutrophils % Seg Neutrophils # PT 50.5 H INR 5.40 H* APTT D-Dimer ABG pH POC ABG pO2 ABG Oxyhemoglobin ABG Potassium ABG Chloride ABG Glucose Carboxyhemoglobin Sodium Chloride Carbon Dioxide BUN Creatinine Glucose POC Glucose 66 L Hemoglobin A1c Lactic Acid Calcium Total Bilirubin AST Alkaline Phosphatase NT-Pro-B Natriuret Pep Albumin LDL Cholesterol Direct Arterial Blood Glucose Arterial Blood Ionized Calcium Urine Creatinine 37.7 H 03/25/21 03:50 WBC RDW Plt Count Lymph % (Auto) Preston % (Auto) Lymph # (Auto) [place] # (Auto) Baso # (Auto) Seg Neutrophils % Seg Neutrophils # PT INR APTT D-Dimer ABG pH POC ABG pO2 ABG Oxyhemoglobin ABG Potassium ABG Chloride ABG Glucose Carboxyhemoglobin Sodium Chloride 110.9 H Carbon Dioxide BUN 23 H Creatinine 1.6 H Glucose POC Glucose Hemoglobin A1c Lactic Acid Calcium Total Bilirubin AST Alkaline Phosphatase NT-Pro-B Natriuret Pep Albumin LDL Cholesterol Direct Arterial Blood Glucose Arterial Blood Ionized Calcium Urine Creatinine Allied health notes reviewed: RT
--- NOTE | 2021-03-25 11:24 | Progress Note ---
Assessment and Plan 1. Rheumatic valvular heart disease. 2. Chronic atrial fibrillation flutter. 3. Severe mitral valve stenosis 4. Status post T AVR 5. Altered mental status 6. Essential hypertension 7. Type 2 diabetes mellitus 8. History of prior CVA Plan. Patient rhythm appears to be 100% paced at 80 bpm. Chest x-ray shows patient to be in heart failure with interstitial edema. Echocardiogram shows normal left ventricular ejection fraction. CHF pattern most likely secondary to mitral stenosis. Systemic blood pressure is elevated we will hold start patient on nitrates for pre and afterload reduction of the left ventricle with attempt on gradual diuresing. Subjective Date of service: 03/25/21 Principal diagnosis: confusion/SOB,Hypoglycemia Interval history: Altered mental status Objective Vital Signs Temp Pulse Pulse Resp Resp BP Pulse Ox 03/25/21 10:40 83 13 168/124 98 03/25/21 10:30 80 14 168/124 98 03/25/21 10:20 80 13 171/123 98 03/25/21 10:18 80 171/123 03/25/21 10:10 80 16 171/114 98 03/25/21 10:00 83 16 171/114 98 03/25/21 09:50 80 15 166/122 98 03/25/21 09:40 80 24 174/121 98 03/25/21 09:30 82 16 174/121 99 03/25/21 09:20 80 29 H 134/102 98 03/25/21 09:10 80 15 166/124 97 03/25/21 09:00 80 11 L 166/124 97 03/25/21 08:50 80 20 164/119 90 03/25/21 08:40 80 9 L 141/102 95 03/25/21 08:30 81 23 141/102 96 03/25/21 08:20 80 17 151/112 96 03/25/21 08:16 100 03/25/21 08:10 80 28 H 139/106 98 03/25/21 08:00 97.4 F L 85 20 177/127 100 03/25/21 07:50 80 17 177/127 100 03/25/21 07:40 80 19 177/127 100 03/25/21 07:30 80 14 177/127 99 03/25/21 07:20 80 14 167/118 100 03/25/21 07:10 80 18 168/115 95 03/25/21 07:00 80 80 18 168/115 95 05 06:50 80 18 167/118 100 03/25/21 06:40 80 21 161/110 100 03/25/21 06:30 80 19 03/25/21 06:20 80 17 161/110 99 03/25/21 06:11 80 19 159/120 99 03/25/21 06:00 80 17 159/120 99 03/25/21 05:51 80 18 147/104 100 03/25/21 05:41 84 15 165/117 75 L 03/25/21 05:30 80 18 165/117 97 03/25/21 05:21 80 16 160/115 98 03/25/21 05:11 80 21 149/112 96 03/25/21 05:00 80 24 149/112 97 03/25/21 04:51 80 15 165/116 97 03/25/21 04:41 80 19 160/117 98 03/25/21 04:30 80 15 160/117 03/25/21 04:21 80 18 171/121 98 03/25/21 04:11 80 16 161/119 98 03/25/21 04:00 80 20 161/119 98 03/25/21 03:51 80 19 155/112 98 03/25/21 03:41 80 22 150/116 98 03/25/21 03:30 80 21 150/116 97 03/25/21 03:21 80 15 148/113 96 03/25/21 03:11 80 11 L 152/113 96 03/25/21 03:07 98.4 F 03/25/21 03:00 80 17 152/113 94 03/25/21 02:51 80 15 151/106 95 03/25/21 02:42 80 168/117 05 02:41 80 20 168/117 95 03/25/21 02:31 80 19 122/85 05 02:21 80 14 160/110 99 03/25/21 02:11 80 21 166/115 99 03/25/21 02:00 80 18 166/115 99 05 01:51 80 17 164/115 99 05 01:41 80 19 162/113 100 05 01:30 80 14 162/113 99 03/25/21 01:21 80 19 142/92 99 03/25/21 01:11 80 20 152/108 100 03/25/21 01:03 15 95 03/25/21 01:00 80 20 152/108 99 03/25/21 00:51 80 21 153/112 98 03/25/21 00:41 80 13 153/112 99 03/25/21 00:30 80 12 153/112 96 03/25/21 00:21 80 11 L 154/107 98 03/25/21 00:11 80 11 L 151/111 97 03/25/21 00:00 80 11 L 151/111 96 03/24/21 23:52 80 21 146/103 96 03/24/21 23:51 80 11 L 146/103 96 03/24/21 23:41 80 15 153/100 96 03/24/21 23:30 80 12 153/100 97 03/24/21 23:21 80 19 150/102 97 03/24/21 23:19 80 20 150/102 96 03/24/21 23:15 95 03/24/21 23:13 98.8 F 03/24/21 23:11 80 18 146/109 98 03/24/21 23:00 80 18 146/109 99 03/24/21 22:51 80 17 145/107 99 03/24/21 22:41 80 18 151/108 99 03/24/21 22:30 80 19 151/108 98 03/24/21 22:21 80 21 152/108 100 03/24/21 22:11 80 16 151/106 100 03/24/21 22:00 80 14 151/106 100 03/24/21 21:51 80 17 146/109 100 03/24/21 21:41 80 15 142/99 100 03/24/21 21:30 80 13 142/99 96 03/24/21 21:21 80 17 134/92 95 03/24/21 21:11 80 20 149/105 82 L 03/24/21 21:00 80 19 149/105 95 03/24/21 20:51 80 14 144/100 94 03/24/21 20:41 80 18 150/105 93 03/24/21 20:30 80 16 150/105 05 20:21 80 13 145/109 94 03/24/21 20:11 80 12 129/95 94 03/24/21 20:09 95 03/24/21 20:00 80 12 129/95 95 03/24/21 19:51 80 11 L 132/94 95 03/24/21 19:41 80 12 131/93 95 03/24/21 19:39 97.6 F 03/24/21 19:30 80 10 L 14 131/93 03/24/21 19:21 80 11 L 127/91 94 03/24/21 19:11 80 11 L 128/88 95 03/24/21 19:00 80 80 11 L 128/88 95 03/24/21 18:51 80 11 L 125/87 94 03/24/21 18:41 80 11 L 121/85 94 03/24/21 18:30 80 11 L 121/85 03/24/21 18:21 80 11 L 123/82 95 03/24/21 18:11 80 11 L 124/81 95 03/24/21 18:00 80 10 L 117/78 03/24/21 17:51 80 11 L 124/81 96 03/24/21 17:40 80 14 122/77 96 03/24/21 17:30 80 14 120/78 03/24/21 17:21 80 15 122/77 96 03/24/21 17:11 80 15 143/88 97 03/24/21 17:00 80 15 143/88 97 03/24/21 16:51 80 15 147/89 98 03/24/21 16:41 80 15 151/94 96 03/24/21 16:30 80 19 151/94 95 03/24/21 16:21 80 18 141/84 97 03/24/21 16:11 81 21 144/80 95 03/24/21 16:01 80 18 144/80 96 03/24/21 16:00 97.7 F 03/24/21 15:55 80 27 H 156/96 93 03/24/21 15:51 80 30 H 156/96 76 L 03/24/21 15:43 82 25 H 152/87 81 L 03/24/21 15:21 82 28 H 145/88 03/24/21 15:11 82 33 H 145/88 88 03/24/21 15:00 80 14 145/88 97 03/24/21 14:51 80 14 149/92 97 05/28/21 14:41 80 14 143/90 97 03/24/21 14:30 82 22 143/90 96 03/24/21 14:21 80 17 145/81 93 03/24/21 14:11 80 14 145/84 96 03/24/21 14:00 137/85 87 03/24/21 13:30 80 91 03/24/21 13:20 80 15 137/85 97 03/24/21 13:10 81 14 129/84 95 03/24/21 13:00 80 18 129/84 94 03/24/21 12:50 80 16 139/82 95 03/24/21 12:40 80 17 133/87 95 03/24/21 12:30 80 15 133/87 95 03/24/21 12:20 80 15 136/83 95 03/24/21 12:10 82 22 131/80 94 03/24/21 12:00 80 16 131/80 94 03/24/21 11:50 80 14 144/85 95 03/24/21 11:40 80 16 127/86 96 03/24/21 11:30 81 16 137/90 92 - Physical Examination General: Other (Restrained AMS) HEENT: Positive: PERRL, Normocephaly Neck: Positive: neck supple, trachea midline, JVD/HJR Cardiac: Positive: Regular Rate, Regular Rhythm, Diastolic Murmur, PMI, Dilated, Laterally Displaced Lungs: Positive: Normal Exam. Negative: No Wheeze, Rales, Rhonchi Neuro: Positive: Other (Altered mental status) Abdomen: Positive: Soft Extremities: Absent: edema - Labs and Meds Coagulation 03/25/21 Range/Units 03:50 PT 50.5 H (12.2-14.9) Sec. INR 5.40 H* (0.87-1.13) Comprehensive Metabolic Panel 03/25/21 03/25/21 Range/Units 00:30 03:50 Sodium 142 (137-145) mmol/L Potassium 3.6 (3.6-5.0) mmol/L Chloride 110.9 H (98-107) mmol/L Carbon Dioxide 25 (22-30) mmol/L BUN 23 H (7-17) mg/dL Creatinine 1.6 H (0.6-1.2) mg/dL Glucose 85 71 (65-100) mg/dL Calcium 8.8 (8.4-10.2) mg/dL - Allied health notes Allied health notes reviewed: RT
[2021-03-25] MEDS: LACTULOSE 20 GM/30 ML ORAL LIQD PO SCH ×2 (11:26→17:31)
[2021-03-25] MEDS: QUEtiapine 25 MG TAB PO SCH ×2 (11:26→22:01)
[2021-03-25] MEDS ORDERED: hydrALAZINE 20 MG/1 ML INJ IV PRN (11:47)
--- NOTE | 2021-03-25 14:07 | Cat Scan Report ---
CT head/brain wo con INDICATION: Acute change in mental status, coagulopathy. TECHNIQUE: Head CT without contrast. All CT scans at this location are performed using CT dose reduction for ALA RA by means of automated exposure control. COMPARISON: Prior head CT on 03/23/2021 FINDINGS: There is no acute hemorrhage, brain edema, or adverse mass effect. There is stable chronic and soft m alacia in the left inferior frontal gyrus and in the right MCA territory involving the right frontal, temporal, and parietal lobes as well as the right insular cortex. Ventricular size appears appropria te for age. The included paranasal sinuses and mastoid air cells are clear. The orbits appear unremarkable. IMPRESSION: 1. No acute cranial abnormality or adverse change from prior exams. Signer Name: Saman Roblero MD Signed: 03/25/2021 2:03 PM Workstation Name: [id number]
--- NOTE | 2021-03-25 15:30 | XRay Report ---
ABDOMEN 1 VIEW 03/25/2021 2:15 PM INDICATION / CLINICAL INFORMATION: DHT placement. COMPARISON: None available. FINDINGS: TUBES / LINES: There is a weighted enteric feeding tube coiled and doubled back on itself in the mid chest with the tip overlying the gastroesophageal junction. BOWEL GAS PATTERN: No significant abnormality. FREE AIR / EXTRALUMINAL GAS: None. ADDITIONAL FINDINGS: No significant additional findings. IMPRESSION: Abnormal position of the feeding tube. The tube will need to be removed and replaced. Signer Name: Mauricio Cortes MD Signed: 03/25/2021 3:26 PM Workstation Name: [id number]
[2021-03-25] MEDS ORDERED: DIGOXIN 0.125 MG TAB PO SCH (17:00)
--- NOTE | 2021-03-25 20:36 | XRay Report ---
ABDOMEN 1 VIEW 03/25/2021 8:12 PM INDICATION / CLINICAL INFORMATION: NGT placement. COMPARISON: 03/25/2021 FINDINGS: Feeding tube has been removed since prior exam. There is mild gaseous distention of the bowel loops t hroughout the mid abdomen. No free air is seen. Signer Name: Tejinder Solorio MD Signed: 03/25/2021 8:32 PM Workstation Name: [id number]
[2021-03-25] MEDS ORDERED: SODIUM CHLORIDE 0.9% 1000 ML 1,000 ML IV ONE ×2 (21:26→23:55)
[2021-03-25] MEDS ORDERED: D5W/0.9% NACL 1,000 ML IV SCH (22:00)
--- NOTE | 2021-03-25 22:11 | XRay Report ---
CHEST 1 VIEW 03/25/2021 9:59 PM INDICATION / CLINICAL INFORMATION: Low O2 sats. COMPARISON: Yesterday. FINDINGS: SUPPORT DEVICES: Unchanged. HEART / MEDIASTINUM: Cardiomegaly and TAVR. LUNGS / PLEURA: Bilateral pleuroparenchymal disease appears mildly improved. No new abnormality. No p neumothorax. ADDITIONAL FINDINGS: No significant additional findings. IMPRESSION: Mild improvement in bilateral pleuroparenchymal disease. Signer Name: Mauricio Cortes MD Signed: 03/25/2021 10:06 PM Workstation Name: [id number]
--- NOTE | 2021-03-25 22:19 | Event Note ---
Date: 03/25/21 Patient has agonal breathing. Also BP 62/40. Patient is seen and examined. Patient is given 1 L of fluid bolus normal saline please increase IV fluid to 100 cc/h. ABG and chest x-ray is ordered.
[2021-03-25] MEDS ORDERED: SODIUM BICARB 8.4% 50 MEQ/50 ML SYRINGE IV ONE (23:31)
[2021-03-25] MEDS: NORepinephrine/NS 4 MG-250 ML 4 MG/250 ML BAG IV SCH (23:32)
[2021-03-25] MEDS ORDERED: VASOPRESSIN 20 UNIT in SODIUM CHLORIDE 0.9% 100 ML IV SCH (23:45)
[2021-03-26] MEDS ORDERED: fentaNYL 100 MCG/2 ML INJ IV PRN (00:03)
[2021-03-26] MEDS ORDERED: LIP THERAPY VASELINE TP PRN (00:03)
[2021-03-26] MEDS ORDERED: MIDAZOLAM 2 MG/2 ML INJ IV PRN (00:03)
[2021-03-26] MEDS ORDERED: MINERAL OIL/PETROLATUM, WHITE OPHTH OINT 3.5 GM OU PRN (00:03)
--- NOTE | 2021-03-26 00:09 | Event Note ---
Date: 03/26/21 Patient was unresponsive. Sats are dropping. ER doctor Ra intubate the patient. Sat is now 98%. Patient BP also low 80/57. Patient was given 1 L of fluid bolus and started on Levophed drip.
--- NOTE | 2021-03-26 00:52 | XRay Report ---
ABDOMEN 1 VIEW(S) INDICATION: OGT PLACEMENT COMPARISON: None available. FINDINGS: Nasogastric tube has tip in the stomach Bowel gas pattern: Within normal limits. No dilated loops of large or small bowel. Free air: None. Calcified gallstones: None seen. Calcified urinary tract calculi: None seen. Additional Findings: None. Skeletal structures: No acute abnormality. IMPRESSION: 1. No acute findings. Signer Name: Long Lombardo MD Signed: 03/26/2021 12:48 AM Workstation Name: [id number]
--- NOTE | 2021-03-26 00:53 | XRay Report ---
CHEST 1 VIEW INDICATION: OETT PLACEMENT COMPARISON: 03/25/2021 FINDINGS: SUPPORT DEVICES: Endotracheal tubes in good position. Pacing device overlying left hemithorax electro de tip right atrium. TAVR HEART / MEDIASTINUM: Cardiac enlargement LUNGS / PLEURA: No significant pulmonary or pleural abnormality. No pneumothorax. ADDITIONAL FINDINGS: IMPRESSION: 1. No interval change as compared to previous exam Signer Name: Long Lombardo MD Signed: 03/26/2021 12:49 AM Workstation Name: [id number]
[2021-03-26] MEDS ORDERED: fentaNYL DRIP Premix 2,000 MCG/100 ML BAG IV SCH (01:00)
[2021-03-26] MEDS ORDERED: MIDAZOLAM 100 MG in SODIUM CHLORIDE 0.9% 80 ML IV SCH (01:00)
[2021-03-26] MEDS ORDERED: SODIUM BICARBONATE 150 MEQ in DEXTROSE 5% IN WATER 1,000 ML IV SCH (02:00)
[2021-03-26] MEDS: INSULIN LISPRO 100 UNIT/ML SUB-Q SCH (02:01)
--- NOTE | 2021-03-26 02:03 | Event Note ---
Date: 03/26/21 Called to bedside by hospitalist, Dr. Shah, for intubation. Patient's nurse and hospitalist report mental status has declined. Patient apparently self extubated yesterday. O2 sats had declined and patient was placed on BiPAP. O2 sats of 99% prior to intubation. Patient was intubated with glide scope MAC 3 using 7.5 ET tube. Successful intubation on first pass, visualized ET tube passing through cords. Bilateral breath sounds present. Chest x-ray shows satisfactory positioning of ET tube.
--- NOTE | 2021-03-26 02:18 | Event Note ---
Date: 03/26/21 CODE ISABELLA called as patient was found to be in asystole arrest. ACLS protocols initiated. Patient received 1 round of epi, and sodium bicarb with ROSC achieved. Remains on Levophed and vasopressin drip. I called pt's (Romeo Aldrich) to advise of current status. At this time he wants her to remain full code.
[2021-03-26] MEDS ORDERED: EPINEPHrine 1 MG/10 ML SYRINGE ONE (02:20)
[2021-03-26] MEDS ORDERED: SODIUM BICARB 8.4% 50 MEQ/50 ML SYRINGE IV ONE (02:20)
[2021-03-26] MEDS ORDERED: DEXTROSE 50% IN WATER (25GM) 50 ML SYRINGE IV ONE (02:20)
--- NOTE | 2021-03-26 02:35 | Event Note ---
Date: 03/26/21 ANDRES MASON called at zero 218 for asystole arrest. ACLS protocol initiated patient received two rounds of epi, one bicarb, with achievement of ROSC. 2 Amps D50 given for blood glucose of 33. Patient has been called and notified, is on his way to our facility and still wants her to remain a full code.
[2021-03-26] MEDS: LACTULOSE 20 GM/30 ML ORAL LIQD PO SCH (02:36)
[2021-03-26] MEDS ORDERED: PHENYLEPHRINE 100 MG in SODIUM CHLORIDE 0.9% 90 ML IV SCH (02:45)
[2021-03-26] MEDS: NORepinephrine/NS 4 MG-250 ML 4 MG/250 ML BAG IV SCH (03:21)
--- NOTE | 2021-03-26 03:39 | Death Note ---
Note Date of : 03/26/21 Time of : 03:10 Time Pronounced: 03:10 - Preliminary Cause of (problem) (1) Cardiac arrest Preliminary cause of Called by the nurse that the patient is not breathing. I examined the patient. Patient has no pulse no BP no reflex. Patient is DNR. Patient at 3:10 AM on 03/26/2021 due to cardiopulmonary arrest. Prognosis is poor. Family is notified
[2021-03-26 04:25] VITALS: BP 50/22
--- NOTE | 2021-03-26 08:06 | Death Summary ---
Summary - Providers Date of service: 03/26/21 Consults: 03/23/21 05:48 Occupational Therapy Evaluate and Treat [CONS] Routine Comment: Reason For Exam: Neuro deficits Physical Therapy Evaluation and Treat [CONS] Routine Comment: Reason For Exam: Neuro deficits 03/23/21 06:31 Speech Therapy Evaluation and Treat [CONS] Stat Reason For Exam: slured speech 03/23/21 07:48 Consult to Physician [CONS] Stat Comment: noted/ tee Consulting Provider: ALICE MUNIZ Physician Instructions: Reason For Exam: Shock? septic 03/23/21 12:42 Consult to Physician [CONS] Stat Comment: called office/ tee Consulting Provider: ALDEN BLAIR Physician Instructions: Reason For Exam: Acute Hematemesis 03/23/21 15:13 Consult to Cardiology [CONS] Routine Consulting Provider: MICKIE CUEVA Reason For Exam: Cardiomyopathy; AICD; Hypotension; A-fib 03/24/21 06:56 Consult to Physician [CONS] Routine Comment: Consulting Provider: MOLLY TERRY Physician Instructions: Reason For Exam: bina known to him 03/24/21 10:26 Consult to Physician [CONS] Routine Comment: Consulting Provider: EMIL FONSECA Physician Instructions: Reason For Exam: sepsis 03/24/21 10:29 Consult to Physician [CONS] Routine Comment: Consulting Provider: MONA JOHNSON Physician Instructions: Reason For Exam: CVA 03/25/21 08:58 Consult to Dietitian/Nutrition [CONS] Routine Physician Instructions: Reason For Exam: Reason for Consult: Write/Manage Tube Feeding Attending: CM WARD - summary Date of admission: 03/23/21 08:30 Date of : 03/26/21 Disposition: The patient is a 65-year-old female with prior CVA, atrial fibrillation on anticoagulation, hypertension, diabetes, indwelling cardiac pacemaker was admitted to the hospital on 03/23/2021 with altered mental status and left facial droop. The patient was admitted with diagnosis of CVA, hypotension/tach, CHF, coagulopathy and acute hypoxemic respiratory failure. Upon initial evaluation, she was hypotensive essentially with diagnosis of shock requiring IV fluids. She also got hypoxic requiring BiPAP. Patient shortly after admission required intubation. Also briefly needed Levophed and mechanical ventilation. ID was also consulted to evaluate for sepsis. Neurology was consulted for CVA. CT scan of the brain was remarkable for remote right MCA and left frontal CVA no hemorrhage. Patient was unable to get an MRI because of pacemaker. On initial evaluation patient was not a candidate for TPA. Patient also had coagulopathy with an INR 10.3 that trended downward. ID felt that the shock was not related to sepsis. However, patient was hypothermic and hypotensive on admission. Blood cultures negative x48 hours. The patient was intubated on admission for respiratory failure. Patient reportedly had some cough and vomiting of blood on 03/23 and was seen by GI. NG tube was placed and no blood was returned therefore GI felt no indication of GI bleed. GI felt that this was a upper airway process. On 03/24 approximately 3 AM patient was noted to self extubated. Cardiology was consulted for rheumatic valvular heart disease and chronic atrial fibrillation. Cardiology opted for conservative cardiac medical therapy including atrioventricular xiomara blocking agent and anticoagulation to maintain INR 2.0-3.0. Cardiology reported poor long-term prognosis in the setting of severe progressive mitral stenosis that is not amenable to surgical or transcutaneous repair. Patient had 100% paced rhythm and a chest x-ray revealed interstitial edema suggestive of heart failure as noted above. CHF is felt to be secondary to mitral stenosis. Patient underwent gradual diuresing. Unfortunately on 03/25 approximately 10 PM patient developed agonal breathing and worsening hypotension. Patient was given fluids and became unresponsive with hypoxia and desaturation. Patient was emergently intubated. ANDRES MASON was called at 0218 asystolic arrest ACLS protocol initiated patient received two rounds of epi, one bicarb, with achievement of ROSC. 2 Amps D50 given for blood glucose of 33. Apparently, patient was later made a DNR per Dr. Shah. Patient at 3:10 AM on 03/26/2021 due to cardiopulmonary arrest. Dedicated time 35 minutes
[2021-03-26] MEDS ORDERED: SENNOSIDES/DOCUSATE SODIUM 8.6/50 MG TAB FEEDTUBE SCH (10:00)
[2021-03-26] MEDS ORDERED: FAMOTIDINE 20 MG/2 ML INJ IV SCH (10:00)
== END 2021-03-26 03:10 | DRG 871 ==
LOC: ED 04:29 → 4A 05:48 → CC1 08:17 → OBSVTOIN 08:30
PROVIDERS: ADMIT Hospitalist; ATTEND Hospitalist
PROC: 0BH17EZ Insertion of Endotracheal Airway into Trachea, Via Natural or Artificial Opening (ICD-10-PCS; principal; 2021-03-23)
PROC: 5A1945Z Respiratory Ventilation, 24-96 Consecutive Hours (ICD-10-PCS; 2021-03-23)
PROC: 4A033R1 Measurement of Arterial Saturation, Peripheral, Percutaneous Approach (ICD-10-PCS; 2021-03-23)
PROC: 06HY33Z Insertion of Infusion Device into Lower Vein, Percutaneous Approach (ICD-10-PCS; 2021-03-23)
PROC: 5A09457 Assistance with Respiratory Ventilation, 24-96 Consecutive Hours, Continuous Positive Airway Pressure (ICD-10-PCS; 2021-03-24)
PROC: 5A12012 Performance of Cardiac Output, Single, Manual (ICD-10-PCS; 2021-03-26)
DX: A41.9 Sepsis, unspecified organism (principal); J96.01 Acute respiratory failure with hypoxia; I63.9 Cerebral infarction, unspecified; R65.21 Severe sepsis with septic shock; K92.2 Gastrointestinal hemorrhage, unspecified; G93.40 Encephalopathy, unspecified; E87.2 Acidosis; D68.9 Coagulation defect, unspecified; G81.94 Hemiplegia, unspecified affecting left nondominant side; N17.9 Acute kidney failure, unspecified; R57.9 Shock, unspecified; I46.9 Cardiac arrest, cause unspecified; Z66 Do not resuscitate; Z20.822 Contact with and (suspected) exposure to COVID-19; I48.91 Unspecified atrial fibrillation; E78.5 Hyperlipidemia, unspecified; R13.12 Dysphagia, oropharyngeal phase; I50.9 Heart failure, unspecified; R29.702 NIHSS score 2; I09.1 Rheumatic diseases of endocardium, valve unspecified; E11.22 Type 2 diabetes mellitus with diabetic chronic kidney disease; N18.9 Chronic kidney disease, unspecified; I12.9 Hypertensive chronic kidney disease with stage 1 through stage 4 chronic kidney disease, or unspecified chronic kidney disease; Z79.899 Other long term (current) drug therapy; Z79.891 Long term (current) use of opiate analgesic; Z79.01 Long term (current) use of anticoagulants; Z88.8 Allergy status to other drugs, medicaments and biological substances; Z79.4 Long term (current) use of insulin; Z95.2 Presence of prosthetic heart valve; Z95.0 Presence of cardiac pacemaker
CPT/HCPCS: 36415; 36600; 70450; 71045; 72131; 74018; 80048; 80053; 80061; 80162; 81001; 82140; 82550; 82553; 82570; 82805; 82947; 82962; 83036; 83735; 83880; 84100; 84145; 84300; 84484; 85025; 85379; 85610; 85670; 85730; 87040; 87070; 87205; 92950; 93005; 93306; 93970; 94002; 94003; 94660; 96361; 96365; 96375; G0378; C9113; J0171; J0330; J0360; J0692; J0696; J1630; J1815; J2060; J2370; J3010; J3370; J3490; J7030; J7070; U0003